=== PATIENT | male | born 1965 | race Caucasian/White ===

== ENCOUNTER 2018-11-07 17:23 | Inpatient (IN) | payer MEDICARE ==
[2018-11-07 18:39] LABS: Basophils % (A) 0 %; Eosinophils # (A) 0.3 k/uL (0-0.7); Eosinophils % (A) 3 %; HCT 44.7 % (39.0-53.0); HGB 15.3 gm/dL (13.0-17.5); Lymphocytes # (A) 1.3 k/uL (1.0-4.8); Lymphocytes % (A) 16 %; MCH 29.7 pg (25.0-35.0); MCHC 34.2 g/dL (31.0-37.0); MCV 86.8 fL (80.0-100.0); Mean Platelet Volume 6.9; Monocytes # (A) 0.6 k/uL (0-1.0); Monocytes % (A) 7 %; Neutrophils # (A) 5.9 k/uL (1.3-7.7); Neutrophils % (A) 72 %; Platelet Count 266 k/uL (150-450); RBC 5.15 m/uL (4.30-5.90); RDW 13.7 % (11.5-15.5); WBC 8.2 k/uL (3.8-10.6)
[2018-11-07 18:58] LABS: Acetaminophen <10.0 ug/mL; African American GFR (CKD) 85 (>60 ml/min/1.73 sqM); Anion Gap 10 mmol/L; Blood Urea Nitrogen 21 mg/dL (9-20); Calcium 9.2 mg/dL (8.4-10.2); Carbon Dioxide 21 mmol/L (22-30); Chloride 109 mmol/L (98-107); Glucose 116 mg/dL (74-99); Potassium 3.4 mmol/L (3.5-5.1); Salicylate <1.0 mg/dL; Sodium 140 mmol/L (137-145)
[2018-11-07] MEDS ORDERED: MAGNESIUM HYDROXIDE 2,400 MG/10 ML CUP PO PRN (20:18)
[2018-11-07] MEDS ORDERED: MAG HYDROX/AL HYDROX/SIMETH 30 ML CUP PO PRN (20:18)
[2018-11-07] MEDS ORDERED: ACETAMINOPHEN TAB 325 MG TAB PO PRN (20:18)
--- NOTE | 2018-11-07 21:07 | ED ---
Psych HPI - General Chief Complaint: Psychiatric Symptoms Stated Complaint: EPS eval Time Seen by Provider: 11/07/18 18:03 Source: patient, EMS Mode of arrival: EMS - History of Present Illness Initial Comments: Patient presents with suicidal ideation. He attempted to harm himself today. He has no chest or belly or back pain. He has no nausea or vomiting. - Related Data Home Medications Medication Instructions Recorded Confirmed No Known Home Medications 11/07/18 11/07/18 Allergies Allergy/AdvReac Type Severity Reaction Status Date / Time Sulfa (Sulfonamide Allergy Unknown Anaphylaxis Verified 11/07/18 18:34 Antibiotics) Review of Systems ROS Statement: Those systems with pertinent positive or pertinent negative responses have been documented in the HPI. ROS Other: All systems not noted in ROS Statement are negative. Past Medical History Past Medical History: Atrial Fibrillation, Cancer, Diabetes Mellitus, GERD/Reflux, Hyperlipidemia, Hypertension, Musculoskeletal Disorder, Sleep Apnea/CPAP/BIPAP Additional Past Medical History / Comment(s): PROSTATE CANCER, DIABETES -DIET CONTROLLED, CHRONIC BACK PAIN WITH NERVE DAMAGE LEFT FOOT, STATES HX OF 1 EPISODE OF A-FIB, STATES HIGH BLOODPRESSURE-NO MEDS, CONSTIPATION. History of Any Multi-Drug Resistant Organisms: None Reported Past Surgical History: Appendectomy, Back Surgery, Cholecystectomy, Tonsillectomy Additional Past Surgical History / Comment(s): BACK SURGERY x2, prostate biopsy . 06-16-14 PROSTATECTOMY Past Anesthesia/Blood Transfusion Reactions: No Reported Reaction, Previous Problems w/ Anesthesia Additional Past Anesthesia/Blood Transfusion Reaction / Comment(s): STATES DIFFICULT INTUBATION. Past Psychological History: ADD/ADHD, Anxiety, Depression Smoking Status: Former smoker Past Alcohol Use History: None Reported Past Drug Use History: Marijuana - Past Family History Mother Family Medical History: No Reported History Father Family Medical History: Myocardial Infarction ([place]) Brother(s) Family Medical History: No Reported History Sister(s) Family Medical History: No Reported History Daughter(s) Family Medical History: No Reported History General Exam Limitations: no limitations General appearance: alert, in no apparent distress Head exam: Present: atraumatic, normocephalic, normal inspection Eye exam: Present: normal appearance, PERRL, EOMI. Absent: scleral icterus, conjunctival injection, periorbital swelling ENT exam: Present: normal exam, mucous membranes moist Neck exam: Present: normal inspection. Absent: tenderness, meningismus, lymphadenopathy Respiratory exam: Present: normal lung sounds bilaterally. Absent: respiratory distress, wheezes, rales, rhonchi, stridor Cardiovascular Exam: Present: regular rate, normal rhythm, normal heart sounds. Absent: systolic murmur, diastolic murmur, rubs, gallop, clicks GI/Abdominal exam: Present: soft, normal bowel sounds. Absent: distended, tenderness, guarding, rebound, rigid Extremities exam: Present: normal inspection, full ROM, normal capillary refill. Absent: tenderness, pedal edema, joint swelling, calf tenderness Back exam: Present: normal inspection Neurological exam: Present: alert, oriented X3, CN II-XII intact Psychiatric exam: Present: depressed, flat affect, suicidal ideation Skin exam: Present: warm, dry, intact, normal color. Absent: rash Course Vital Signs 11/07/18 17:38 Temperature 98.4 F Pulse Rate 83 Respiratory 18 Rate Blood Pressure 158/105 O2 Sat by Pulse 96 Oximetry Medical Decision Making - Medical Decision Making Patient presents with suicidal ideation. He will be admitted to the hospital. - Lab Data Result diagrams: 11/07/18 18:28 11/07/18 18:28 Lab Results 11/07/18 11/07/18 Range/Units 18:28 18:28 WBC 8.2 (3.8-10.6) k/uL RBC 5.15 (4.30-5.90) m/uL Hgb 15.3 (13.0-17.5) gm/dL Hct 44.7 (39.0-53.0) % MCV 86.8 (80.0-100.0) fL MCH 29.7 (25.0-35.0) pg MCHC 34.2 (31.0-37.0) g/dL RDW 13.7 (11.5-15.5) % Plt Count 266 (150-450) k/uL Neutrophils % 72 % Lymphocytes % 16 % Monocytes % 7 % Eosinophils % 3 % Basophils % 0 % Neutrophils # 5.9 (1.3-7.7) k/uL Lymphocytes # 1.3 (1.0-4.8) k/uL Monocytes # 0.6 (0-1.0) k/uL Eosinophils # 0.3 (0-0.7) k/uL Basophils # 0.0 (0-0.2) k/uL Sodium 140 (137-145) mmol/L Potassium 3.4 L (3.5-5.1) mmol/L Chloride 109 H (98-107) mmol/L Carbon Dioxide 21 L (22-30) mmol/L Anion Gap 10 mmol/L BUN 21 H (9-20) mg/dL Creatinine 1.14 (0.66-1.25) mg/dL Est GFR (CKD-EPI)AfAm 85 (>60 ml/min/1.73 sqM) Est GFR (CKD-EPI)NonAf 73 (>60 ml/min/1.73 sqM) Glucose 116 H (74-99) mg/dL Calcium 9.2 (8.4-10.2) mg/dL Salicylates <1.0 mg/dL Acetaminophen <10.0 ug/mL Disposition Clinical Impression: Attempted suicide Disposition: TRANSFER TO PSYCH HOSP/UNIT Condition: Fair
[2018-11-08 07:45] LABS: Glucose,Whole Blood 90 mg/dL (75-99)
[2018-11-08 09:36] LABS: Basophils # (A) 0.1 k/uL (0-0.2); Basophils % (A) 1 %; Eosinophils # (A) 0.4 k/uL (0-0.7); Eosinophils % (A) 6 %; HCT 43.4 % (39.0-53.0); HGB 14.4 gm/dL (13.0-17.5); Lymphocytes # (A) 1.5 k/uL (1.0-4.8); Lymphocytes % (A) 25 %; MCH 29.3 pg (25.0-35.0); MCHC 33.3 g/dL (31.0-37.0); MCV 87.9 fL (80.0-100.0); Mean Platelet Volume 7.1; Monocytes # (A) 0.4 k/uL (0-1.0); Monocytes % (A) 7 %; Neutrophils # (A) 3.7 k/uL (1.3-7.7); Neutrophils % (A) 59 %; Platelet Count 274 k/uL (150-450); RBC 4.94 m/uL (4.30-5.90); RDW 15.3 % (11.5-15.5); WBC 6.2 k/uL (3.8-10.6)
[2018-11-08 09:49] LABS: Albumin 4.2 g/dL (3.5-5.0); Calcium 8.7 mg/dL (8.4-10.2); Potassium 3.8 mmol/L (3.5-5.1); Total Bilirubin 0.7 mg/dL (0.2-1.3); Total Protein 7.4 g/dL (6.3-8.2)
--- NOTE | 2018-11-08 12:12 | P.HP ---
Psychiatric H&P - . H&P Date: 11/08/18 History & Physical: Allergies Allergy/AdvReac Type Severity Reaction Status Date / Time Sulfa (Sulfonamide Allergy Unknown Anaphylaxis Verified 11/08/18 01:51 Antibiotics) Vital Signs Temp 97.9 F 11/08/18 06:46 Pulse 64 11/08/18 06:46 Resp 18 11/08/18 06:46 BP 140/85 11/08/18 06:46 Pulse Ox 99 11/07/18 20:39 Intake & Output 11/07/18 11/08/18 11/08/18 18:59 06:59 18:59 Weight 90.718 kg Laboratory Last Values WBC 6.2 k/uL (3.8-10.6) 11/08/18 08:12 RBC 4.94 m/uL (4.30-5.90) 11/08/18 08:12 Hgb 14.4 gm/dL (13.0-17.5) 11/08/18 08:12 Hct 43.4 % (39.0-53.0) 11/08/18 08:12 MCV 87.9 fL (80.0-100.0) 11/08/18 08:12 MCH 29.3 pg (25.0-35.0) 11/08/18 08:12 MCHC 33.3 g/dL (31.0-37.0) 11/08/18 08:12 RDW 15.3 % (11.5-15.5) 11/08/18 08:12 Plt Count 274 k/uL (150-450) 11/08/18 08:12 Neutrophils % 59 % 11/08/18 08:12 Lymphocytes % 25 % 11/08/18 08:12 Monocytes % 7 % 11/08/18 08:12 Eosinophils % 6 % 11/08/18 08:12 Basophils % 1 % 11/08/18 08:12 Neutrophils # 3.7 k/uL (1.3-7.7) 11/08/18 08:12 Lymphocytes # 1.5 k/uL (1.0-4.8) 11/08/18 08:12 Monocytes # 0.4 k/uL (0-1.0) 11/08/18 08:12 Eosinophils # 0.4 k/uL (0-0.7) 11/08/18 08:12 Basophils # 0.1 k/uL (0-0.2) 11/08/18 08:12 Sodium 141 mmol/L (137-145) 11/08/18 08:12 Potassium 3.8 mmol/L (3.5-5.1) 11/08/18 08:12 Chloride 105 mmol/L (98-107) 11/08/18 08:12 Carbon Dioxide 24 mmol/L (22-30) 11/08/18 08:12 Anion Gap 12 mmol/L 11/08/18 08:12 BUN 22 mg/dL (9-20) H 11/08/18 08:12 Creatinine 1.34 mg/dL (0.66-1.25) H 11/08/18 08:12 Est GFR (CKD-EPI)AfAm 70 (>60 ml/min/1.73 sqM) 11/08/18 08:12 Est GFR (CKD-EPI)NonAf 60 (>60 ml/min/1.73 sqM) 11/08/18 08:12 Glucose 90 mg/dL (74-99) 11/08/18 08:12 POC Glucose (mg/dL) 90 mg/dL (75-99) 11/08/18 07:42 POC Glu Perl Developer ID Brenda Nieves 11/08/18 07:42 Calcium 8.7 mg/dL (8.4-10.2) 11/08/18 08:12 Total Bilirubin 0.7 mg/dL (0.2-1.3) 11/08/18 08:12 AST 28 U/L (17-59) 11/08/18 08:12 ALT 31 U/L (21-72) 11/08/18 08:12 Alkaline Phosphatase 60 U/L (38-126) 11/08/18 08:12 Total Protein 7.4 g/dL (6.3-8.2) 11/08/18 08:12 Albumin 4.2 g/dL (3.5-5.0) 11/08/18 08:12 Triglycerides 94 mg/dL (<150) 11/08/18 08:12 Cholesterol 167 mg/dL (<200) 11/08/18 08:12 LDL Cholesterol, Calc 102 mg/dL (0-99) H 11/08/18 08:12 HDL Cholesterol 46 mg/dL (40-60) 11/08/18 08:12 TSH 2.290 mIU/L (0.465-4.680) 11/08/18 08:12 Salicylates <1.0 mg/dL 11/07/18 18:28 Acetaminophen <10.0 ug/mL 11/07/18 18:28 11/08/18 11:57 IDENTIFYING DATA: Patient is a 52-year-old male who is currently , has 6 kids, currently supported on SSD. HPI: Patient presented to the hospital for an alleged suicide attempt. As per petition filled out by , she claims that she received a text message from the patient stating that he was going to end his life at home. states that she had to kick in the door and found patient hanging by a dog leash and cut him down and called the police to bring him into the hospital. Patient was seen this morning and was agreeable to speak to adjusto writer operator. Patient appeared to have poor hygiene and poor grooming and was itching his face and scratching his dockery, had poor attention during the interview. Patient had a depressed affect and a soft tone. He states that he has been feeling depressed for years now and states that it has gotten worse to the point where he wanted to end his life. Patient claims that he has been feeling overwhelmed at home and endorsed stressors of him having cancer in his "lymph nodes" and pointed to his armpits and states that he does not know where the cancer has come from however he was diagnosed 1 year ago. He also states that he has a history of prostate cancer which she had his prostate removed. Patient also claims that he has been stressed about his having a resurgence in her breast cancer recently. Patient claims that he feels hopeless and feels worthless. He also claims that he does have some anxiety and smokes marijuana to help with that. He states that he feels somnolent during the day and has poor sleep at night, sometimes oversleeping. He states that his hygiene and appetite are poor. He states that he was being followed up by psychiatrist who he does not recall the name in [place] and claims that he has been on antidepressant medications which is helped him in the past. He claims to have been off his medications for years now. Patient denies any current suicidal or homicidal ideations intent or plan. At this time patient denies any auditory or visual hallucinations. Patient denies any flight of ideas racing thoughts and increased in goal directed behavior. Patient admits to using marijuana approximately 2 joints a day to help with his anxiety. He denies alcohol use or any other illicit drugs. He claims that he stopped smoking cigarettes in the late s. PAST PSYCHIATRIC HISTORY: States that he was last admitted to a [facility] in 2016 being treated for depression. He claims that he has had 3 overdose attempts in the past when he is been off his medications. He states that he was following up with a outpatient psychiatrist in [place] on however failed to follow-up for years. He states that he has been diagnosed with anxiety and depression. PMH: A. fib, cancer, diabetes mellitus, GERD, HLP, hypertension, RAFAL, chronic back pain. ALLERGIES: Sulfa CHEMICAL DEPENDENCY HISTORY: As per HPI FAMILY PSYCHIATRIC/SUBSTANCE USE HISTORY: Claims that his uncle committed suicide. SOCIAL HISTORY: States that he lives in a house in [place] with his has 6 kids of his own. He states that he finished high school and did some college. 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 Currently he is supported on [facility] MENTAL STATUS EXAM: General Appearance: Patient appears to be older than stated age, is somewhat lethargic and has poor hygiene and grooming. Behavior: Patient is calmly seated without any agitated behavior. Speech: Patient's speech is fluent and nonpressured. Soft tone Mood/Affect: Patient reports their mood is "depressed", affect is congruent and constricted Suicidality/Homicidality: Patient denies having any suicidal or homicidal i deation intent or plan. Claims he does have passive SI at times. Perceptions: Patient denies any auditory or visual hallucinations. Though content/process: There is no evidence of any delusional thought content and thought process is linear and goal-directed. Patient was preoccupied with stressors and feeling overwhelmed at home. Memory and concentration: AOX3, grossly intact for the purposes of this session. Can spell "WORLD" backwards Judgment and insight: Poor STRENGTHS/WEAKNESSES: Has good social support, an income. Has poor coping skills and a history of chronic illness. INTELLECT: Average IMPRESSIONS: Major depressive disorder, moderate-severe Claims to have a history of ADHD. Cannabis use disorder PLAN: -Patient is admitted under voluntary status to MHU for stabilization of psychiatric symptoms and safety. Patient signed adult voluntary form and medication consent and is placed in patient's chart. -Will start patient on Effexor 37.5 mg daily with plan to titrate up for mood and anxiety. Will also start melatonin 3 mg daily at bedtime for sleep. -Hydroxyzine 25 mg every 8 hours when necessary for anxiety. -Patient was counselled on substance abuse. Patient had superficial insight and did not want to cut back on use at this time. -Patient was informed of the risks, benefits and side effects of the medication and patient verbally consented to taking the medications. -NRT not required as patient does not smoke cigarettes. -SW on board for discharge planning. Patient claims that he would like to follow-up and be connected with [facility] as his has been going there for her follow-up and she would like to join her. 11/08/18 12:05 11/08/18 12:11
[2018-11-08 12:26] LABS: Glucose,Whole Blood 94 mg/dL (75-99)
[2018-11-08] MEDS: VENLAFAXINE HCL 37.5 MG TAB PO SCH (13:13)
[2018-11-08] MEDS ORDERED: BENZOCAINE/MENTHOL LOZENG 1 EACH LOZENGE MUCOUS MEM PRN (15:44)
--- NOTE | 2018-11-08 15:45 | P.HPMEDMHU ---
History of Present Illness H&P Date: 11/08/18 Chief Complaint: depression Patient is a 52-year-old male with a past medical history of hypertension, diabetes, GERD, dyslipidemia, prostate cancer, and "lymph node cancer" is currently in the mental health unit after attempting suicide by hanging. He reports that he had many past medical problems but he does not see a physician and has not since he had prostate cancer in 2015. He reports that he has high blood pressure and has been on medications in the past but is not taking anything currently, he has a history of diabetes that has been diet controlled, High cholesterol that has been diet controlled, obstructive sleep apnea with no history of CPAP use, he had one episode of lone A. fib. He reports that in 2015 limits on his prostate cancer they also found "lymph node cancer". He reports that it is unrelated to the prostate cancer. He saw an oncologist one time and was told he should follow-up after treatment for prostate cancer. He has not seen anyone since that time. He reports that he is active insurance with Medicare. He also is not following with her family physician. He reports intermittent shortness of breath with exertion associated with cough and wheezing. He denies any chest pain or palpitations. Denies any nausea, vomiting, diarrhea, constipation, or dysuria. He thinks his cancer and his lymph nodes is getting worse as he is having worsening fatigue and decreased appetite. He does complain of some neck and throat pain after the hanging episode. Review of Systems Pertinent positives and negatives as discussed in HPI, a complete review of systems was performed and all other systems are negative. Past Medical History Past Medical History: Atrial Fibrillation, Cancer, Diabetes Mellitus, GERD/Reflux, Hyperlipidemia, Hypertension, Musculoskeletal Disorder, Sleep Apnea/CPAP/BIPAP Additional Past Medical History / Comment(s): PROSTATE CANCER, DIABETES -DIET CONTROLLED, CHRONIC BACK PAIN WITH NERVE DAMAGE LEFT FOOT, STATES HX OF 1 EPISODE OF A-FIB, STATES HIGH BLOODPRESSURE-NO MEDS, CONSTIPATION. 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 06-16-14 PROSTATECTOMY Past Anesthesia/Blood Transfusion Reactions: No Reported Reaction, Previous Problems w/ Anesthesia Additional Past Anesthesia/Blood Transfusion Reaction / Comment(s): STATES DIFFICULT INTUBATION. Past Psychological History: ADD/ADHD, Anxiety, Depression Additional Psychological History / Comment(s): PT STATED MAINTAINED AMY GOOD ON HIS MEDS NO SUIDCIDAL THOUGHTS BUT HAS TROUBLE STAYING ASLEEP, GETS ANTSY AT TIMES. PTS STATED HE NEEDS TO BE REMINDED TO EAT. Smoking Status: Former smoker Past Alcohol Use History: None Reported Additional Past Alcohol Use History / Comment(s): patient smoked 2-1/2 packs of cigarettes per day for 5-6 years and quit in 1989. Past Drug Use History: Marijuana Additional Drug Use History / Comment(s): DAILY USE OF MARIJUANA FOR BACK PAIN. - Past Family History Mother Family Medical History: No Reported History Father Family Medical History: Myocardial Infarction ([place]) Brother(s) Family Medical History: No Reported History Sister(s) Family Medical History: No Reported History Daughter(s) Family Medical History: No Reported History Medications and Allergies Home Medications Medication Instructions Recorded Confirmed Type No Known Home Medications 11/07/18 11/07/18 History Allergies Allergy/AdvReac Type Severity Reaction Status Date / Time Sulfa (Sulfonamide Allergy Unknown Anaphylaxis Verified 11/08/18 01:51 Antibiotics) Physical Exam Osteopathic Statement: *. No significant issues noted on an osteopathic structural exam other than those noted in the History and Physical/Consult. Vitals: Vital Signs Temp Pulse Pulse Resp BP BP Pulse Ox 11/08/18 06:46 97.9 F 64 18 140/85 11/07/18 20:39 97.9 F 89 18 139/94 99 11/07/18 17:38 98.4 F 83 18 158/105 96 General: non toxic, no distress, appears at stated age, normal weight, appears disheveled, malodorous Derm: Slight area of excoriation left anterior neck, Multiple tattoos bilateral upper extremities, no unusual rashes/lesions no unusual ecchymoses, warm, dry Head: atraumatic, normocephalic, symmetric Eyes: EOMI, no lid lag, anicteric sclera, pupils equal round reactive to light ENT: Nose and ears atraumatic, no thrush, no pharyngeal erythema Neck: No thyromegaly, no cervical lymphadenopathy, trachea midline, supple Mouth: no lip lesion, mucus membranes moist Cardiovascular: S1S2 reg, no murmur, positive posterior tibial pulse bilateral, no edema, capillary refill less than 2 seconds Lungs: CTA bilateral, no rhonchi, no rales , no accessory muscle use Abdominal: soft, nontender to palpation, no guarding, no appreciable organomegaly, normal bowel sounds Ext: no gross muscle atrophy, muscle strength 5 out of 5 in all 4 extremities grossly, no contractures, Neuro: CN II-XI grossly intact, light touch intact all 4 extremities, finger to nose within normal limits, Psych: Alert, oriented, affect Lymph node: No cervical, axillary, or inguinal lymphadenopathy Cranial Nerve Examination - Cranial Nerves Cranial Nerve II- Optic: Intact Cranial Nerve III- Oculomotor: Intact Cranial Nerve IV- Trochlear: Intact Cranial Nerve V- Trigeminal: Intact Cranial Nerve - Abducens: Intact Cranial Nerve VII- Facial: Intact Cranial Nerve VIII- Auditory: Intact Cranial Nerve IX- Glossopharyngeal: Intact Cranial Nerve X- Vagus: Intact Cranial Nerve XI- Accessory: Intact Cranial Nerve XII- Hypoglossal: Intact Results CBC & Chem 7: 11/08/18 08:12 11/08/18 08:12 Labs: Abnormal Lab Results - Last 24 Hours (Table) 11/07/18 11/08/18 Range/Units 18:28 08:12 Potassium 3.4 L (3.5-5.1) mmol/L Chloride 109 H (98-107) mmol/L Carbon Dioxide 21 L (22-30) mmol/L BUN 21 H 22 H (9-20) mg/dL Creatinine 1.34 H (0.66-1.25) mg/dL Glucose 116 H (74-99) mg/dL LDL Cholesterol, Calc 102 H (0-99) mg/dL Thrombosis Risk Factor Assmnt - DVT/VTE Prophylaxis DVT/VTE Prophylaxis: Low risk, early ambulation encouraged Assessment and Plan Assessment: High blood pressure, slightly elevated -Continue to trend -Start Norvasc -Needs outpatient follow-up- Dr. Awan Hx of DM, diet controlled - check sugar prior to breakfast - await A1C HLD - LDL slightly elevated at 102 - dietary modification - if stays elevated on repeat in 6 months and A1C is elevated then statin for goal LDL <70 Hx of Lymph node cancer per patient - out patient heme/onc evaluation - CBC with diff normal, no palpable lymphadenopathy Exertional dyspnea - monitor symptoms - if stable and not severe then outpatient eval - if worsening then will need echo Thank you for allowing us to participate in the care of this patient. We will follow peripherally. Do not hesitate to contact us with questions. Someone can be reached from the [facility][Note 3] hospitalist group at all hours of the day at [phone].
[2018-11-08 19:26] LABS: Hemoglobin A1C 5.2 % (4.0-6.0)
[2018-11-08] MEDS: hydrOXYzine PAMOATE 25 MG CAP PO PRN (19:55)
[2018-11-08] MEDS ORDERED: amLODIPine 10 MG TAB PO STA (20:11)
[2018-11-08] MEDS: MELATONIN 3 MG TABLET PO SCH (20:51)
[2018-11-09] MEDS: VENLAFAXINE HCL 37.5 MG TAB PO SCH (06:41)
[2018-11-09 07:34] LABS: Glucose,Whole Blood 105 mg/dL (75-99)
[2018-11-09] MEDS: METOPROLOL TARTRATE 25 MG TAB PO SCH (08:25)
[2018-11-09] MEDS ORDERED: amLODIPine 5 MG TAB PO SCH (09:00)
--- NOTE | 2018-11-09 12:28 | P.PN ---
Progress Note - Text Progress Note Date: 11/09/18 Interval History: Patient was seen in his room this morning and was agreeable to speak to check writer. Patient claims that she slept well last night and continues to feel the same with regards to his mood and anxiety. He states that his blood pressure was noted to be elevated than it regularly is an patient was expressing concern about it. It was explained that this could be a side effect of his medication and patient was offered alternatives and antidepressants. Patient claims that he would be most comfortable with Prozac at this time. He states that he has not been going to groups and has been resting quite a bit claiming that she did not get sleep before coming into the hospital. He states his appetite is fair. At this time patient denies any suicidal or homical ideations, intent or plan. Patient denies any auditory, visual hallucinations and denies any paranoia or delusions. Patient has been compliant with meds. Mental Status Exam: General Appearance: Patient appears to be older than stated age, is somewhat lethargic and has poor hygiene and grooming. Behavior: Patient is calmly seated without any agitated behavior. Speech: Patient's speech is fluent and nonpressured. Soft tone Mood/Affect: Patient reports their mood is "a little better", affect is congruent and constricted Suicidality/Homicidality: Patient denies having any suicidal or homicidal ideation intent or plan. Claims he does have passive SI at times. Perceptions: Patient denies any auditory or visual hallucinations. Though content/process: There is no evidence of any delusional thought content and thought process is linear and goal-directed. Memory and concentration: AOX3, grossly intact for the purposes of this session. Judgment and insight: Poor, improving mildly IMPRESSIONS: Major depressive disorder, moderate-severe Claims to have a history of ADHD. Cannabis use disorder PLAN: -Patient continues to meet criteria for inpatient psychiatric hospitalization under voluntary status to MHU for stabilization of psychiatric symptoms and safety. -Medications : Will discontinue Effexor as it may have been causing patient's blood pressure to be elevated. We will start Prozac 20 mg daily tomorrow for mood and anxiety. Will continue with melatonin 3 mg daily at bedtime for sleep. -Hydroxyzine 25 mg every 8 hours when necessary for anxiety. -Patient was informed of the risks, benefits and side effects of the medication and patient verbally consented to taking the medications. -NRT not required as patient does not smoke cigarettes. -SW on board for discharge planning. Patient claims that he would like to follow-up and be connected with [facility] upon discharge.
[2018-11-09] MEDS: hydrOXYzine PAMOATE 25 MG CAP PO PRN (15:26)
[2018-11-09] MEDS: MELATONIN 3 MG TABLET PO SCH (22:22)
[2018-11-10 07:50] LABS: Glucose,Whole Blood 99 mg/dL (75-99)
[2018-11-10] MEDS: METOPROLOL TARTRATE 25 MG TAB PO SCH (08:56)
[2018-11-10] MEDS: amLODIPine 10 MG TAB PO SCH (08:56)
[2018-11-10] MEDS ORDERED: FLUoxetine HCL 20 MG CAP PO SCH (09:00)
--- NOTE | 2018-11-10 11:20 | P.PN ---
Progress Note - Text Interval history: The patient's found in his room he follows me to an interview room. He was admitted over the weekend by Dr. Mccoy. He reportedly attempted suicide via hanging. The patient is known to our mental health unit service as he has had several admissions in the past. His diagnoses have varied from depression unspecified to bipolar disorder. He indicates that he is been under several stressors which were overwhelming. He initially was started on Effexor XR while here than there was some concern it was contributing to his hypertension. The Effexor was discontinued and he was placed on Prozac. The patient states that he now recalls being on Prozac in the past it was not beneficial and he no longer wishes to take that medication. After reviewing his records and speaking with him longer he states that he did well with Lamictal as a mood stabilizer. He requests that I speak with his as she may have a better recollection of his medications. He does have a history of hypertension and he states he has been off of his antihypertensives. Mental status exam: The patient is alert he has long hair and a long dockery he has numerous tattoos on his upper extremities he is dressed in his own clothing. Eye contact is appropriate. Speech is fluent spontaneous nonpressured. Affect is constricted. He states that he feels safe in the hospital in terms of suicidal thoughts he is reporting no homicidal ideation. He reports no auditory or visual hallucinations or any specific delusions. There is no observed evidence of psychosis. He demonstrates no tangential thinking loose associations or flight of ideas. He does not appear currently to be hypomanic or manic. He demonstrates no verbal or physical aggressiveness he demonstrates no involuntary repetitive movements. Impressions/plan: Symptoms of depression and rule out bipolar depression versus major depressive disorder, we will discontinue the Prozac as he recalls it was ineffective for him in the past. We will go ahead and initiate Lamictal 25 mg twice daily as a mood stabilizer. I have placed a call with his to gather collateral information regarding his response to Lamictal or antidepressant medication. He is encouraged to participate in the milieu we will monitor him for safety. Vital signs reviewed.
[2018-11-10] MEDS: MELATONIN 3 MG TABLET PO SCH (20:39)
[2018-11-10] MEDS: lamoTRIgine 25 MG TAB PO SCH (20:39)
[2018-11-11] MEDS: amLODIPine 10 MG TAB PO SCH (03:29)
[2018-11-11 07:44] LABS: Glucose,Whole Blood 120 mg/dL (75-99)
[2018-11-11] MEDS: METOPROLOL TARTRATE 25 MG TAB PO SCH (09:37)
[2018-11-11] MEDS: lamoTRIgine 25 MG TAB PO SCH ×2 (09:38→20:37)
--- NOTE | 2018-11-11 09:49 | P.PN ---
Progress Note - Text Interval history: The patient is found in the hallway he follows me to an interview room. He indicates his mood is getting better. He reports he slept well last night staff recorded he slept 5-6 hours. We reviewed his psychotropic medication he is agreeable to continuing the Lamictal. We will defer adding anything else at this time. He reports his appetite is stable. He reports he is attending groups. He states that he is working on developing his social support. Mental status exam: The patient is dressed in his own clothing hygiene grooming fair, he has appropriate eye contact he is wearing eyeglasses. Speech is fluent spontaneous nonpressured. Affect is appropriately expressive. He is reporting no acute suicidal or homicidal thoughts here in the hospital. He continues to remind me that he would like to be discharged by the end of the week. He is reporting no auditory or visual hallucinations or any specific delusions. There is no overt evidence of psychosis. He demonstrates no verbal or physical aggressiveness. He demonstrates no involuntary repetitive movements. Insight and judgment improving. He remains oriented to person place and date. Impression/plan: Depression on specified rule out I polar depression, continue Lamictal as written. He is encouraged to continue participating in groups. We will continue to monitor him for safety and encourage coping skill development. Vital signs reviewed blood pressure fluctuating and this has been addressed by internal medicine. He requires continued psychiatric hospitalization for evaluation and treatment. He may be appropriate for discharge towards the end of the week.
[2018-11-11] MEDS: hydrOXYzine PAMOATE 25 MG CAP PO PRN ×2 (12:55→20:38)
[2018-11-11] MEDS: MELATONIN 3 MG TABLET PO SCH (20:37)
[2018-11-12 07:44] LABS: Glucose,Whole Blood 97 mg/dL (75-99)
[2018-11-12] MEDS: lamoTRIgine 25 MG TAB PO SCH ×2 (09:01→21:02)
[2018-11-12] MEDS: METOPROLOL TARTRATE 25 MG TAB PO SCH (09:01)
[2018-11-12] MEDS: amLODIPine 10 MG TAB PO SCH (09:02)
[2018-11-12] MEDS: hydrOXYzine PAMOATE 25 MG CAP PO PRN ×2 (09:02→16:25)
--- NOTE | 2018-11-12 09:38 | P.PN ---
Progress Note - Text Progress Note Date: 11/12/18 Interval history: The patient is found in his room he follows me to an interview room. He indicates his mood is improving. He states that he attended groups yesterday and attended the goal setting group this morning so far. He has no questions or concerns regarding his medication. We spent some time discussing the factors causing this admission. He identifies several people that he would contact for support if he finds himself struggling again. He is hoping to attend [facility] for outpatient care upon discharge. He has been speaking with his via phone. Appetite is been stable he slept last night staff report he slept 6 hours. Mental status exam: The patient is alert he is dressed in his own clothing hygiene grooming fair. Eye contact is appropriate. Speech is fluent spontaneous nonpressured. He indicates his mood is improving. He is reporting no acute suicidal or homicidal ideation intent or plan. He is reporting no racing thoughts. He demonstrates no tangential thinking loose associations or flight of ideas. He demonstrates no verbal or physical aggressiveness. Insight and judgment improving. He remains oriented to person place and date. Affect is appropriately expressive. He reports no auditory or visual hallucinations or specific delusions and there is no observed evidence of psychosis. Impression/plan: Symptoms of depression improving, continue Lamictal as written. We will continue to monitor him for safety. Social work will be asked to arrange a support meeting. We will consider discharge in the next 1-2 days. Vital signs reviewed. Blood pressure is slowly normalizing. He is encouraged to continue participating in groups.
[2018-11-12] MEDS: MELATONIN 3 MG TABLET PO SCH (21:02)
[2018-11-13] MEDS: hydrOXYzine PAMOATE 25 MG CAP PO PRN ×2 (01:10→09:45)
[2018-11-13 01:21] VITALS: TEMP 97.5
[2018-11-13 07:47] LABS: Glucose,Whole Blood 92 mg/dL (75-99)
[2018-11-13] MEDS: METOPROLOL TARTRATE 25 MG TAB PO SCH (09:45)
[2018-11-13] MEDS: lamoTRIgine 25 MG TAB PO SCH (09:45)
[2018-11-13] MEDS: amLODIPine 10 MG TAB PO SCH (09:45)
[2018-11-13 09:47] VITALS: BP 145/90; PULSE 88; RESP 18
--- NOTE | 2018-11-13 11:57 | P.DS ---
Providers Date of admission: 11/07/18 20:12 Expected date of discharge: 11/13/18 Attending physician: Ronaldo Sherwood Consults: 11/07/18 20:18 Consult Physician Routine Consulting Provider: Anival Davis Consult Reason/Comments: medical management Do you want consulting provider notified?: Yes Primary care physician: Stated None - Discharge Diagnosis(es) (1) Depression Current Visit: No Status: Acute Priority: High (2) Cannabis use disorder, mild, abuse Current Visit: Yes Status: Acute Priority: Medium Hospital Course: Brief summary of admission note: This patient is a 52-year-old male who was admitted to the mental health unit for an alleged suicide attempt. His completed a petition stating that she received a text message from the patient stating he was going to end his life. She discovered that he had a dog leash around his neck she called the police. He described having hopeless thoughts and feeling worthless. He described having poor appetite and difficulty maintaining his hygiene. For full details please refer to the psychiatric evaluation by Dr. Mccoy dated 11/08/2018. Summary of hospital course: The patient's was admitted to the mental health unit voluntarily. He was admitted to the hospital by Dr. Mccoy and I subsequently assumed his care the following Saturday. In reviewing his symptoms there is some suspicion that he may have a bipolar depression. He is known to me from prior admission. He states he had been successful with Lamictal and the past. He had been started on Effexor XR that was discontinued he was placed on Prozac and he stated that Prozac provided no benefit in the past. We discontinued the Prozac and reinitiated Lamictal. The patient did participate in group therapy. He reported a progressive improvement of symptoms while here. He was seen by internal medicine for routine history and physical exam. Social work met with him to complete a psychosocial assessment. The patient has been indicating that his mood is improved he no longer feels hopeless and he has verbalized strategies he would use to access support when he feels he is in crisis. He states that he is looking forward to establishing with [facility]. Mental status exam: The patient is alert he presents with adequate hygiene grooming eye contact is appropriate. He is pleasant cooperative and easily directable. He reports his mood is good he denies having any suicidal ideation intent or plan. He reports he does not feel hopeless. He is reporting no homicidal ideation intent or plan. He reports no auditory or visual hallucinations or any specific delusions and there is no observed evidence of psychosis. He demonstrates no tangential thinking loose associations or flight of ideas and he does not appear hypomanic or manic. His affect is appropriately expressive. He demonstrates no verbal or physical aggressiveness he demonstrates no involuntary repetitive movements. He is oriented to person place and date. He demonstrates future oriented thinking spontaneously. He indicates he wants to establish with [facility]. He has concerns for his property and states he will be reaching out to his friend for support and to help secure his property. Impressions 1. Depression unspecified rule out bipolar depression versus major depressive disorder, cannabis use disorder Plan: The patient will be discharged from the mental health unit today to return home. He will continue on Lamictal 25 mg twice daily. The Lamictal will need to be titrated further in the outpatient setting. He is advised to abstain from any use of marijuana alcohol or any illicit drugs as these substances can provoke mood symptoms and elevate his safety risk. Social work will arrange his outpatient mental health follow-up. He does not feel that he requires inpatient chemical dependency treatment. There is no imminent safety risk is appropriate for transition back to outpatient care. He is reminded to return to the hospital for any acute safety concerns. Social work will attempt to arrange a support meeting either in person or via phone if possible. Patient Condition at Discharge: Stable Plan - Discharge Summary New Discharge Prescriptions: New lamoTRIgine [LaMICtal] 25 mg PO BID #60 tab Metoprolol Tartrate [Lopressor] 25 mg PO DAILY #30 tab Melatonin 3 mg PO HS tablet amLODIPine [Norvasc] 10 mg PO DAILY #30 tab hydrOXYzine PAMOATE [Vistaril] 25 mg PO Q8HR PRN #30 cap PRN Reason: Anxiety Discharge Medication List Melatonin 3 mg PO HS tablet 11/13/18 [Rx] Metoprolol Tartrate [Lopressor] 25 mg PO DAILY #30 tab 11/13/18 [Rx] amLODIPine [Norvasc] 10 mg PO DAILY #30 tab 11/13/18 [Rx] hydrOXYzine PAMOATE [Vistaril] 25 mg PO Q8HR PRN #30 cap 11/13/18 [Rx] lamoTRIgine [LaMICtal] 25 mg PO BID #60 tab 11/13/18 [Rx] Follow up Appointment(s)/Referral(s): Daniel Villagomez MD [STAFF PHYSICIAN] - 2 Weeks (Read Dr Lara's H and P, for when to f/u after d/c) Emperatriz Badillo MD [STAFF PHYSICIAN] - 1 Week
== END 2018-11-13 13:31 | disposition home or self-care (01) | DRG 885 ==
LOC: EC 17:23 → 3MHU 20:12
PROVIDERS: ADMIT Psychiatry & Neurology Psychiatry; ATTEND Psychiatry & Neurology Psychiatry
DX: F32.2 Major depressive disorder, single episode, severe without psychotic features (principal); R45.851 Suicidal ideations; E11.9 Type 2 diabetes mellitus without complications; I48.91 Unspecified atrial fibrillation; F31.9 Bipolar disorder, unspecified; E78.5 Hyperlipidemia, unspecified; F12.10 Cannabis abuse, uncomplicated; F41.9 Anxiety disorder, unspecified; F90.9 Attention-deficit hyperactivity disorder, unspecified type; G47.33 Obstructive sleep apnea (adult) (pediatric); I10 Essential (primary) hypertension; K21.9 Gastro-esophageal reflux disease without esophagitis; G89.29 Other chronic pain; M54.9 Dorsalgia, unspecified; Z79.899 Other long term (current) drug therapy; Z87.891 Personal history of nicotine dependence; Z88.2 Allergy status to sulfonamides; Z85.46 Personal history of malignant neoplasm of prostate; Z90.49 Acquired absence of other specified parts of digestive tract; Z90.79 Acquired absence of other genital organ(s); Z82.49 Family history of ischemic heart disease and other diseases of the circulatory system
CPT/HCPCS: 36415; 80048; 80053; 80061; 80329; 82075; 83036; 83520; 84443; 85025; 99285

== ENCOUNTER 2018-12-24 14:23 | Inpatient (IN) | payer MEDICARE ==
--- NOTE | 2018-12-24 15:50 | ED ---
Psych HPI - General Chief Complaint: Psychiatric Symptoms Stated Complaint: Mental Health Time Seen by Provider: 12/24/18 14:29 Source: patient, police, RN notes reviewed Mode of arrival: ambulatory Limitations: no limitations - History of Present Illness Initial Comments: 52-year-old male presents emergency Department chief complaint of psychiatric issues. Patient states she is depressed, suicidal. Patient is she is very anxious. Patient reports picture of himself and a rope in a tree stating that he was hanging himself. Patient denies self-harm at this time. Patient does admit to marijuana use no alcohol abuse. Patient is petition by police. Patient was visiting ex- who has a PPO. Patient has no physical complaints. Patient states she is very anxious. Patient states when he gets anxious he stutters. - Related Data Previous Rx's Medication Instructions Recorded Metoprolol Tartrate [Lopressor] 25 mg PO DAILY #30 tab 11/13/18 amLODIPine [Norvasc] 10 mg PO DAILY #30 tab 11/13/18 hydrOXYzine PAMOATE [Vistaril] 25 mg PO Q8HR PRN #30 cap 11/13/18 lamoTRIgine [LaMICtal] 25 mg PO BID #60 tab 11/13/18 Allergies Allergy/AdvReac Type Severity Reaction Status Date / Time Sulfa (Sulfonamide Allergy Unknown Anaphylaxis Verified 12/24/18 14:46 Antibiotics) Review of Systems ROS Statement: Those systems with pertinent positive or pertinent negative responses have been documented in the HPI. ROS Other: All systems not noted in ROS Statement are negative. Past Medical History Past Medical History: Atrial Fibrillation, Cancer, Diabetes Mellitus, GERD/Reflux, Hyperlipidemia, Hypertension, Musculoskeletal Disorder, Sleep Apnea/CPAP/BIPAP Additional Past Medical History / Comment(s): PROSTATE CANCER, DIABETES -DIET CONTROLLED, CHRONIC BACK PAIN WITH NERVE DAMAGE LEFT FOOT, STATES HX OF 1 EPISODE OF A-FIB, STATES HIGH BLOODPRESSURE-NO MEDS, CONSTIPATION. 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 06-16-14 PROSTATECTOMY Past Anesthesia/Blood Transfusion Reactions: No Reported Reaction, Previous Problems w/ Anesthesia Additional Past Anesthesia/Blood Transfusion Reaction / Comment(s): STATES DIFFICULT INTUBATION. Past Psychological History: ADD/ADHD, Anxiety, Depression Smoking Status: Former smoker Past Alcohol Use History: None Reported Past Drug Use History: Marijuana - Past Family History Mother Family Medical History: No Reported History Father Family Medical History: Myocardial Infarction (MS) Brother(s) Family Medical History: No Reported History Sister(s) Family Medical History: No Reported History Daughter(s) Family Medical History: No Reported History General Exam Limitations: no limitations General appearance: alert, in no apparent distress, anxious Head exam: Present: atraumatic, normocephalic, normal inspection Eye exam: Present: normal appearance, PERRL, EOMI. Absent: scleral icterus, conjunctival injection, periorbital swelling ENT exam: Present: normal exam, mucous membranes moist Neck exam: Present: normal inspection, full ROM. Absent: tenderness, meningismus, lymphadenopathy Respiratory exam: Present: normal lung sounds bilaterally. Absent: respiratory distress, wheezes, rales, rhonchi, stridor Cardiovascular Exam: Present: regular rate, normal rhythm, normal heart sounds. Absent: systolic murmur, diastolic murmur, rubs, gallop, clicks GI/Abdominal exam: Present: soft, normal bowel sounds. Absent: distended, tenderness, guarding, rebound, rigid Neurological exam: Present: alert, oriented X3, CN II-XII intact Skin exam: Present: warm, dry, intact, normal color. Absent: rash Course Vital Signs 12/24/18 14:25 Temperature 98.3 F Pulse Rate 86 Respiratory 20 Rate Blood Pressure 140/82 O2 Sat by Pulse 97 Oximetry Medical Decision Making - Medical Decision Making Patient evaluated by EPS recommends inpatient treatment. Patient will be gving ativan as he is acutely anxious, and agitated Disposition Clinical Impression: Depression, Suicidal ideations Disposition: TRANSFER TO PSYCH HOSP/UNIT Condition: Stable Referrals: None,Stated [Primary Care Provider] - 1-2 days
[2018-12-24] MEDS ORDERED: LORazepam 2 MG/ML INJ IM STA (17:06)
[2018-12-24] MEDS ORDERED: LORazepam 1 MG TAB PO PRN (17:37)
[2018-12-24] MEDS ORDERED: MAGNESIUM HYDROXIDE 2,400 MG/10 ML CUP PO PRN (17:37)
[2018-12-24] MEDS ORDERED: ZIPRASIDONE 20 MG VIAL IM PRN (17:37)
[2018-12-24] MEDS ORDERED: ACETAMINOPHEN TAB 325 MG TAB PO PRN (17:37)
[2018-12-24] MEDS ORDERED: MAG HYDROX/AL HYDROX/SIMETH 30 ML CUP PO PRN (17:37)
[2018-12-24] MEDS ORDERED: hydrOXYzine PAMOATE 25 MG CAP PO PRN (17:44)
[2018-12-24] MEDS ORDERED: amLODIPine 10 MG TAB PO SCH (17:45)
[2018-12-24] MEDS ORDERED: LORazepam 2 MG/ML INJ IM PRN (17:45)
[2018-12-24] MEDS ORDERED: METOPROLOL TARTRATE 25 MG TAB PO SCH (17:45)
[2018-12-24 18:32] LABS: Glucose,Whole Blood 116 mg/dL (75-99)
[2018-12-24 18:57] VITALS: TEMP 98.1
[2018-12-24 18:58] VITALS: RESP 18
[2018-12-24 18:59] VITALS: BP 136/89; PULSE 68
[2018-12-24 19:12] LABS: Basophils # (A) 0.1 k/uL (0-0.2); Basophils % (A) 1 %; Eosinophils # (A) 0.3 k/uL (0-0.7); Eosinophils % (A) 3 %; HCT 40.8 % (39.0-53.0); HGB 13.4 gm/dL (13.0-17.5); Lymphocytes # (A) 1.1 k/uL (1.0-4.8); Lymphocytes % (A) 14 %; MCH 30.4 pg (25.0-35.0); MCHC 32.8 g/dL (31.0-37.0); MCV 92.6 fL (80.0-100.0); Mean Platelet Volume 6.7; Monocytes # (A) 0.6 k/uL (0-1.0); Monocytes % (A) 7 %; Neutrophils # (A) 5.8 k/uL (1.3-7.7); Neutrophils % (A) 73 %; Platelet Count 240 k/uL (150-450); RDW 13.4 % (11.5-15.5); WBC 8.1 k/uL (3.8-10.6)
[2018-12-24 19:13] LABS: Prothrombin Time 11.1 sec (9.0-12.0)
--- NOTE | 2018-12-24 19:18 | P.PN ---
Progress Note - Text Progress Note Date: 12/24/18 The patient is a 53 yo M with a PMH of major depression, HTN, HLD, DM, prostate ca, ?"lymph node cancer" who initially presented to the ED earlier today via petition by police for violating a restraining order by his ex-. The patient had reportedly texted his ex- a picture of him with rope on a tree, threatening her that he was going to hang himself. The police thereby petitioned him and brought him to the ED for suicidal ideation. In the ED, the patient was apparently agitated and stuttering, requiring Ativan 2 mg IM, and was subsequently admitted to the [facility] for suicidal ideation. Upon admission to the [facility]HU, the patient was noted to have continued and worsening stuttering, which he reported he gets when he is very upset. The patient was then noted to have R sided weakness and L sided facial droop, for which the travel writer was contacted @ 6:12 pm. The travel writer evaluated the patient and a code-stroke was activated @ 6:20 pm. The patient at the initial examination noted that he has never noticed weakness of any particular part of his body. The patient became increasingly lethargic during the interview, though continued to answer questions appropriately. He noted ocassionaly smoking marijuana but denied any other illicit substance use. He denied any previously history of strokes. The patient's vital signs @ 6:24 pm were: BP 138/87, P 74, R 18, T 98.1. Fingerstick 116. The patient otherwise denied headache, trauma to the head or neck, loss of consciousness, nausea, vomiting, or dizziness. NIHSS: 10 points General: Disheveled M, lethargic, appears stated age, obese HEENT: NC/AT, anicteric sclerae, moist conjunctiva, PERRLA Cardiovascular: S1/S2 wnl, no murmurs, rubs, or gallops Lungs: Clear to auscultation, normal respiratory effort, no accessory muscle use Abdominal: Soft, non-tender, non-distended, no guarding, rebound, or rigidity Skin: Warm, dry Extremities: No edema or contractures Psychiatric: Alert and oriented to person, place and time Neuro: L facial droop w/ sparing of forehead, RUE and RLE strength 3+/5, LUE and LLE 5/5, dysarthria w/ slurred speech, no aphasia, EOMI Plan: Suspected acute CVA -Stat neurology consult -Obtain CTA Head and neck -Obtain CBC, BMP, PT/INR, ECG, Urine Toxicology -Neurochecks -Transfer patient to Medicine -Fall, aspiration, seizure precautions
[2018-12-24 19:19] LABS: Calcium 8.8 mg/dL (8.4-10.2); Potassium 3.5 mmol/L (3.5-5.1); Total Bilirubin 0.5 mg/dL (0.2-1.3); Total Protein 6.8 g/dL (6.3-8.2)
--- NOTE | 2018-12-24 19:20 | CT ---
EXAMINATION TYPE: CT brain wo con DATE OF EXAM: 12/24/2018 HISTORY: Difficulty speaking. Acute strokelike symptoms. CT DLP: 526.50 mGycm. Automated Exposure Control for Dose Reduction was Utilized. TECHNIQUE: CT scan of the head is performed without contrast. COMPARISON: None. FINDINGS: There is no acute intracranial hemorrhage or midline shift identified. Ventricles and sul ci are within normal limits in size for patient's age. Jin-white matter differentiation is fairly we ll maintained. The globes are intact and the visualized sinuses are clear. IMPRESSION: No acute intracranial hemorrhage or midline shift.
--- NOTE | 2018-12-24 19:34 | CT ---
EXAMINATION TYPE: CT angio head neck DATE OF EXAM: 12/24/2018 HISTORY: Acute onset speech difficulties. COMPARISON: NONE Automated Exposure Control for Dose Reduction was Utilized. TECHNIQUE: CTA scan of the head and neck are performed with IV Contrast, patient injected with 65 mL of Isovue 300, axial images are obtained, coronal and sagittal reformatted images are reviewed. Thre e-D reconstructed images are created on an independent workstation and reviewed. FINDINGS: Carotid/Vascular Structures: Normal three-vessel origin from aortic arch. No significant plaque or st enosis in the right common or internal carotid arteries bilaterally. Patent external carotid arteries bilaterally without significant stenosis. Codominant vertebrobasilar system. Vertebral arteries are patent to basilar junction. Hypoplastic valeria ateral posterior communicating arteries. No significant stenosis or aneurysmal change. Patent anterior communicating artery not well seen. No significant focal stenosis or aneurysmal barrios e. Other: Loss of normal cervical curvature with moderate disc space narrowing C5-C6 level and mild ante rior spurring. IMPRESSION: No significant stenosis in common or internal carotid arteries bilaterally. No significa nt stenosis or aneurysmal change at the level of the [place] of [place].
[2018-12-24] MEDS ORDERED: lamoTRIgine 25 MG TAB PO SCH (21:00)
== END 2018-12-24 17:33 | disposition short-term general hospital (02) | DRG 880 ==
LOC: EC 14:23 → 3MHU 17:29
PROVIDERS: ADMIT Psychiatry & Neurology Psychiatry; ATTEND Psychiatry & Neurology Psychiatry
DX: R45.851 Suicidal ideations (principal); I63.9 Cerebral infarction, unspecified; G81.94 Hemiplegia, unspecified affecting left nondominant side; E11.9 Type 2 diabetes mellitus without complications; E66.9 Obesity, unspecified; E78.5 Hyperlipidemia, unspecified; F32.9 Major depressive disorder, single episode, unspecified; F90.9 Attention-deficit hyperactivity disorder, unspecified type; G47.30 Sleep apnea, unspecified; I10 Essential (primary) hypertension; I48.91 Unspecified atrial fibrillation; K21.9 Gastro-esophageal reflux disease without esophagitis; R29.710 NIHSS score 10; Z82.49 Family history of ischemic heart disease and other diseases of the circulatory system; Z85.46 Personal history of malignant neoplasm of prostate; Z87.891 Personal history of nicotine dependence; Z79.899 Other long term (current) drug therapy; Z88.2 Allergy status to sulfonamides; Z90.49 Acquired absence of other specified parts of digestive tract; Z68.31 Body mass index [BMI] 31.0-31.9, adult
CPT/HCPCS: 70450; 70496; 70498; 80053; 82075; 84484; 85025; 85610; 96372; 99285

== ENCOUNTER 2018-12-24 19:09 | Inpatient (IN) | payer MEDICARE ==
--- NOTE | 2018-12-24 21:22 | P.HPIM ---
History of Present Illness H&P Date: 12/24/18 The patient is a 53 yo M with a PMH of major depression, HTN, HLD, DM, prostate ca, ?"lymph node cancer" who initially presented to the ED earlier today via petition by police for violating a restraining order by his ex-. The patient had reportedly texted his ex- a picture of him with rope on a tree, threatening her that he was going to hang himself. The police thereby petitioned him and brought him to the ED for suicidal ideation. In the ED, the patient was apparently agitated and stuttering, requiring Ativan 2 mg IM, and was subsequently admitted to the [facility]HU for suicidal ideation. Upon admission to the MHU, the patient was noted to have continued and worsening stuttering, which he reported he gets when he is very upset. The patient was then noted to have R sided weakness and L sided facial droop, for which the typewriter assembly and parts inspector was contacted @ 6:12 pm. The typewriter assembly and parts inspector evaluated the patient and a code-stroke was activated @ 6:20 pm. The patient at the initial examination noted that he has never noticed weakness of any particular part of his body. The patient became increasingly lethargic during the interview, though continued to answer questions appropriately. He noted ocassionaly smoking marijuana but denied any other illicit substance use. He denied any previously history of strokes. The patient's vital signs @ 6:24 pm were: BP 138/87, P 74, R 18, T 98.1. Fingerstick 116. The patient otherwise denied headache, trauma to the head or neck, loss of consciousness, nausea, vomiting, or dizziness. NIHSS: 10 points. on my evaluation on the telemetry unit, the patient denied any pain or shortness of breath. CT of the head and neck was negative for any acute intracranial pathology. Labs were largely unremarkable with exception of slightly elevated BUN at 23 and blood sugar of 100. Blood pressure was 136/89 Review of Systems Pertinent positives per HPI all others ROS are negative Past Medical History Past Medical History: Atrial Fibrillation, Cancer, Diabetes Mellitus, GERD/Reflux, Hyperlipidemia, Hypertension, Musculoskeletal Disorder, Sleep Apnea/CPAP/BIPAP Additional Past Medical History / Comment(s): PROSTATE CANCER, DIABETES -DIET CONTROLLED, CHRONIC BACK PAIN WITH NERVE DAMAGE LEFT FOOT, STATES HX OF 1 EPISODE OF A-FIB, STATES HIGH BLOODPRESSURE-NO MEDS, CONSTIPATION. 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 06-16-14 PROSTATECTOMY Past Anesthesia/Blood Transfusion Reactions: No Reported Reaction, Previous Problems w/ Anesthesia Additional Past Anesthesia/Blood Transfusion Reaction / Comment(s): STATES DIFFICULT INTUBATION. Past Psychological History: ADD/ADHD, Anxiety, Depression Smoking Status: Former smoker Past Alcohol Use History: None Reported Past Drug Use History: Marijuana - Past Family History Mother Family Medical History: No Reported History Father Family Medical History: Myocardial Infarction (DC) Brother(s) Family Medical History: No Reported History Sister(s) Family Medical History: No Reported History Daughter(s) Family Medical History: No Reported History Medications and Allergies Home Medications Medication Instructions Recorded Confirmed Type Metoprolol Tartrate [Lopressor] 25 mg PO DAILY #30 tab 11/13/18 12/24/18 Rx amLODIPine [Norvasc] 10 mg PO DAILY #30 tab 11/13/18 12/24/18 Rx hydrOXYzine PAMOATE [Vistaril] 25 mg PO Q8HR PRN #30 cap 11/13/18 12/24/18 Rx lamoTRIgine [LaMICtal] 25 mg PO BID #60 tab 11/13/18 12/24/18 Rx Allergies Allergy/AdvReac Type Severity Reaction Status Date / Time Sulfa (Sulfonamide Allergy Unknown Anaphylaxis Verified 12/24/18 19:47 Antibiotics) Physical Exam Vitals: Intake and Output 12/24/18 12/24/18 12/24/18 06:59 14:59 22:59 Other: Weight 91 kg Constitutional: Disheveled, arousable but difficult to keep awake, appears stated age Eyes: Anicteric sclerae, moist conjunctiva, no lid-lag, PERRLA ENMT: NC/AT,Oropharynx clear, no erythema, exudates Neck:Supple, FROM, no masses, or JVD, No carotid bruits; No thyromegaly Lungs: Clear to auscultation, Clear to percussion, Normal respiratory effort, no accessory muscle use Cardiovascular: Heart regular in rate and rhythm, No murmurs, gallops, or rubs no peripheral edema Abdominal: Soft Nontender, nom distended, no guarding, no rebound or rigidity, Normoactive bowel sounds No hepatomegaly, No splenomegaly, No palpable mass No abdominal wall hernia noted Skin: Normal temperature, tone, texture, turgor, No induration No subcutaneous nodules, No rash, lesions, No ulcers Extremities:No digital cyanosis No clubbing, Pedal pulses intact and symmetrical Radial pulses intact and symmetrical gait not assessed Psychiatric: disoriented to situation and place Neuro: Left facial droop with sparing of forehead, speech intelligible but does not respond appropriately to questions, no aphasia or dysarthria, right upper extremity drift and weakness Results CBC & Chem 7: 12/25/18 06:10 12/25/18 06:10 Assessment and Plan Assessment: Altered mental status with confusion disorientation Essential hypertension Hyperlipidemia Type 2 diabetes History of A. fib History of prostate cancer Depression with suicidal ideation Plan: Patient is admitted anticipated greater than 2 midnight stay with altered mental status of this disorientation confusion after code stroke was called on the mental health unit where the patient was initially admitted for depression with suicidal ideation. There was no indication of a definitive last well-known time thus limiting the use of TPA, CT of his head and neck was negative for any acute atrial pathology, patient has risk factors for CVA, will order echocardiogram, MRI, bedside swallow eval, urine drug screen and plans a consult neurology. Aspirin will be ordered and we'll continue to monitor the patient for neuro checks and aspiration precautions. Hemodynamically the patient is stable his blood pressure slightly elevated we'll continue to monitor this, allow permissive hypertension per protocol. CODE STATUS: Full code Anticipated discharge: 1-2 days Prophylaxis: SCDs
[2018-12-24] MEDS ORDERED: ASPIRIN 81 MG PO STA (21:27)
[2018-12-24] MEDS: INSULIN ASPART (NovoLOG) 100 UNIT/ML VIAL SQ SCH (22:12)
[2018-12-24] MEDS: lamoTRIgine 25 MG TAB PO SCH (22:18)
[2018-12-24] MEDS: SODIUM CHLORIDE 0.9% 1,000 ML IV SCH (22:51)
[2018-12-25 02:57] LABS: Amphetamine Screen,Urine Detected (NotDetected); Barbiturate Screen,Urine Not Detected (NotDetected); Benzodiazepines Screen,Urine Not Detected (NotDetected); Cocaine Screen,Urine Not Detected (NotDetected); Methadone Screen, Urine Not Detected (NotDetected); Opiate Screen,Urine Not Detected (NotDetected); Oxycodone Screen, Urine Not Detected (NotDetected); Phencyclidine Screen,Urine Not Detected (NotDetected); Tricyclic Antidepressant,Urine Not Detected (NotDetected); Urn Cannabinoid Scrn Not Detected (NotDetected)
[2018-12-25 06:13] LABS: Glucose,Whole Blood 86 mg/dL (75-99)
[2018-12-25] MEDS: INSULIN ASPART (NovoLOG) 100 UNIT/ML VIAL SQ SCH ×4 (06:18→21:42)
[2018-12-25 07:26] LABS: Basophils # (A) 0.1 k/uL (0-0.2); Basophils % (A) 1 %; Eosinophils # (A) 0.5 k/uL (0-0.7); Eosinophils % (A) 7 %; HCT 42.8 % (39.0-53.0); HGB 13.7 gm/dL (13.0-17.5); Lymphocytes # (A) 1.8 k/uL (1.0-4.8); Lymphocytes % (A) 30 %; MCH 29.1 pg (25.0-35.0); MCHC 32.1 g/dL (31.0-37.0); MCV 90.5 fL (80.0-100.0); Mean Platelet Volume 6.6; Monocytes # (A) 0.5 k/uL (0-1.0); Monocytes % (A) 8 %; Neutrophils # (A) 3.2 k/uL (1.3-7.7); Neutrophils % (A) 51 %; Platelet Count 241 k/uL (150-450); RBC 4.73 m/uL (4.30-5.90); RDW 13.4 % (11.5-15.5); WBC 6.3 k/uL (3.8-10.6)
[2018-12-25] MEDS: SODIUM CHLORIDE 0.9% 1,000 ML IV SCH ×2 (07:33→12:02)
[2018-12-25 07:35] LABS: Calcium 8.7 mg/dL (8.4-10.2); Potassium 3.7 mmol/L (3.5-5.1); Total Bilirubin 0.8 mg/dL (0.2-1.3)
[2018-12-25] MEDS: lamoTRIgine 25 MG TAB PO SCH ×2 (07:44→21:44)
[2018-12-25] MEDS: amLODIPine 10 MG TAB PO SCH (07:44)
[2018-12-25] MEDS: METOPROLOL TARTRATE 25 MG TAB PO SCH (07:44)
[2018-12-25] MEDS: ASPIRIN 325 MG TAB PO SCH (07:44)
[2018-12-25] MEDS ORDERED: LORazepam 1 MG TAB PO STA (09:25)
[2018-12-25 11:49] LABS: Glucose,Whole Blood 151 mg/dL (75-99)
--- NOTE | 2018-12-25 12:41 | ECHOF ---
Referral Reason:Thrombus MEASUREMENTS -------- HEIGHT: 170.2 cm WEIGHT: 93.9 kg BP: 140/87 IVSd: 1.4 cm (0.6 - 1.1) LVIDd: 3.7 cm (3.9 - 5.3) LVPWd: 1.3 cm (0.6 - 1.1) IVSs: 1.9 cm LVIDs: 2.1 cm LVPWs: 1.8 cm LAESV Index (A-L): 16.31 ml/m Ao Diam: 3.6 cm (2.0 - 3.7) AV Cusp: 2.4 cm (1.5 - 2.6) LA Diam: 2.6 cm (2.7 - 3.8) MV EXCURSION: 17.007 mm (> 18.000) MV EF SLOPE: 96 mm/s (70 - 150) EPSS: 1.6 cm MV E Matthew: 0.39 m/s MV DecT: 250 ms MV A Matthew: 0.52 m/s MV E/A Ratio: 0.74 RAP: 5.00 mmHg RVSP: 24.02 mmHg TAPSE: 21.08 mm FINDINGS -------- Sinus rhythm. This was a technically good study. The left ventricular size is normal. There is moderate concentric left ventricular hypertrophy. O verall left ventricular systolic function is normal with, an EF between 55 - 60 %. The diastolic fi lling pattern is normal for the age of the patient 5.83. The right ventricle is normal in size. The right ventricular systolic function is normal. The left atrial size is normal. Normal LA size by volume 22+/-6 ml/m2. The right atrial size is normal. Interatrial and interventricular septum intact. Aortic valve is trileaflet and is mildly thickened. The mitral valve is normal. The mitral valve leaflets are mildly thickened. Mild mitral regurgita tion is present. Mild tricuspid regurgitation present. Right ventricular systolic pressure is normal at < 35 mmHg. There is no evidence of pulmonary hypertension. There is no pulmonic regurgitation present. The aortic root size is normal. Normal inferior vena cava with normal inspiratory collapse consistent with estimated right atrial pre ssure of 5 mmHg. There is no pericardial effusion. CONCLUSIONS -------- 1. Sinus rhythm. 2. This was a technically good study. 3. The left ventricular size is normal. 4. There is moderate concentric left ventricular hypertrophy. 5. Overall left ventricular systolic function is normal with, an EF between 55 - 60 %. 6. The diastolic filling pattern is normal for the age of the patient 5.83 7. The right ventricle is normal in size. 8. The right ventricular systolic function is normal. 9. The left atrial size is normal. 10. Normal LA size by volume 22+/-6 ml/m2. 11. The right atrial size is normal. 12. Interatrial and interventricular septum intact. 13. Aortic valve is trileaflet and is mildly thickened. 14. The mitral valve is normal. 15. The mitral valve leaflets are mildly thickened. 16. Mild mitral regurgitation is present. 17. Mild tricuspid regurgitation present. 18. Right ventricular systolic pressure is normal at < 35 mmHg. 19. There is no evidence of pulmonary hypertension. 20. There is no pulmonic regurgitation present. 21. The aortic root size is normal. 22. Normal inferior vena cava with normal inspiratory collapse consistent with estimated right atrial pressure of 5 mmHg. 23. There is no pericardial effusion. MEDICAL DIAGNOSTIC RADIOGRAPHER: Nicole Cummings RDCS
--- NOTE | 2018-12-25 13:19 | P.CNNES ---
History of Present Illness Consult date: 12/25/18 Reason for Consult: Concern for stroke Chief complaint: Suicidal ideation History of Present Illness: HISTORY OF PRESENT ILLNESS: Thank you for allowing me to evaluate Mr. Tony Lam. Mr. Dominique is a 53-year-old man with past medical history of atrial fibrillation, diabetes (diet controlled), GERD, hyperlipidemia, hypertension, sleep apnea, prostate cancer/lymph node cancer, chronic back pain, ADHD, anxiety, depression, who initially presented to [facility] for suicidal ideation, consulted neurology for concern for stroke. The patient was initially evaluated by the emergency physician, patient does not have any focal weakness. However, patient was noted to have right upper extremity weakness and left facial droop, for which stroke code was called. Patient did not receive TPA and was not a candidate for thrombectomy. Patient was also found to be positive for amphetamine/amphetamine. Patient at time of evaluation is sleeping, and having significant drowsiness. The sitter states that he has been sleeping most of the day. However, patient does open eyes to verbal stimuli, he does follow most commands. Denies any headache, nausea, vomiting, pain. PAST MEDICAL HISTORY: Atrial fibrillation, diabetes (diet controlled), GERD, hyperlipidemia, h ypertension, sleep apnea, prostate cancer/lymph node cancer, chronic back pain, PAST SURGICAL HISTORY: Appendectomy, back surgery, cholecystectomy, tonsillectomy, prostatectomy HOME MEDICATIONS: Lamotrigine, metoprolol, amlodipine, hydroxyzine PRN ALLERGIES: Sulfa SOCIAL HISTORY: Former smoker. Denies alcohol abuse history. Endorses marijuana use FAMILY HISTORY: Father with NC. REVIEW OF SYSTEMS: The 14 systems are reviewed and no additional points are identified compared to the review of systems documented history and physical PHYSICAL EXAMINATION: VITAL SIGNS: T 98.2 HR 77 RR 18 BP 142/87 O2 sat 98% on RA GEN.: NAD, very drowsy but cooperative HEENT: NCAT, sclera without icterus NECK: Supple SKIN AND EXTREMITIES: Warm to touch, no edema NEURO: MENTAL STATUS: Patient alert and oriented to self, place, time. Able to name the current president. Mumbles when he speaks, able to name and repeat, following most commands readily. No right and left disorientation, neglect. CRANIAL NERVES II THROUGH XII: II: Left pupil is smaller than right pupil, both are reactive to light equally. Placed to threat bilaterally III, IV, : No ptosis. Extraocular movements full. No nystagmus. VII. left facial droop XII: Tongue midline without fasciculation or atrophy. MOTOR: Normal bulk/tone. No tremor. Able to keep left upper extremity against gravity. Right upper extremity drops immediately was slowly after being released from my hand. Patient is able to keep his left lower extremity against gravity for 5 seconds. His right lower extremity drops to the bed before heading to 5 second marked SENSORY: Decreased to light touch and pinprick in left upper and lower extremities REFLEXES: 2+ throughout. Toes are downgoing. COORDINATION/GAIT: Deferred as patient with significant drowsiness DIAGNOSTIC TESTING: LABORATORY: WBC 6.3 hemoglobin 13.7 platelet 241 sodium 141 potassium 3.7 chloride 105 bicarb 27 BUN 19 creatinine 1.22 glucose 86 AST 26 ALT 22 alk phos 62 UTox amphetamine/meth positive IMAGING: CT head without contrast 12/24/2018: No acute intracranial hemorrhage or midline shift. CTA head and neck with and without contrast 12/24/2018: No significant stenosis and common or internal carotid arteries bilaterally. No significant stenosis or aneurysm change at the level of the [place] Transthoracic echocardiogram 12/25/2018: Sinus rhythm. LV/RV/LA/RA sizes are normal. EF 55-60% ASSESSMENT: Mr. Dominique is a 53-year-old man with past medical history of atrial fibrillation, diabetes (diet controlled), GERD, hyperlipidemia, hypertension, sleep apnea, prostate cancer/lymph node cancer, chronic back pain, ADHD, anxiety, depression, who initially presented to [facility] for suicidal ideation, consulted neurology for concern for stroke. On exam, patient found with left eye miosis, left facial droop along with right upper extremity and lower extremity weakness, concerning for a stroke involving the brainstem, specifically the medulla. Patient was found with urine tox positive for amphetamine/methamphetamine. Patient with multiple risk factors for stroke. It is unclear if patient is taking all his medications. Patient is also not on any antiplatelet or anticoagulation even though he has a history of atrial fibrillation. Transthoracic echocardiogram showing normal left atrial size. RECOMMENDATIONS: 1. MRI brain without contrast 2. CTA of head and neck with and without contrast 3. Cardiac monitoring 4. Permissive HTN for 24-48 hours SBP >220. Give labetalol 10mg IV q1h PRN for SBP >220 DBP >110 5. ASA 81mg qday, Atorvastatin 80mg qhs67. Labs: A1C, TSH, FLP 7. PT/OT/ST per protocol 8. Discussed with patient about stroke prevention guidelines. Medication compliance, hypertension/diabetes control, lifestyle changes including no smoking, drinking in moderation, losing weight, exercising, eating healthier 9. Neurology will continue to follow 10. Patient needs to follow up with neurologist as outpatient with her 1-2 weeks of discharge Past Medical History Past Medical History: Atrial Fibrillation, Cancer, Diabetes Mellitus, GERD/Reflux, Hyperlipidemia, Hypertension, Musculoskeletal Disorder, Sleep Apnea/CPAP/BIPAP Additional Past Medical History / Comment(s): PROSTATE CANCER, DIABETES -DIET CONTROLLED, CHRONIC BACK PAIN WITH NERVE DAMAGE LEFT FOOT, STATES HX OF 1 EPISODE OF A-FIB, STATES HIGH BLOODPRESSURE-NO MEDS, CONSTIPATION. 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 06-16-14 PROSTATECTOMY Past Anesthesia/Blood Transfusion Reactions: No Reported Reaction, Previous Problems w/ Anesthesia Additional Past Anesthesia/Blood Transfusion Reaction / Comment(s): STATES DIFFICULT INTUBATION. Past Psychological History: ADD/ADHD, Anxiety, Depression Smoking Status: Former smoker Past Alcohol Use History: None Reported Past Drug Use History: Marijuana - Past Family History Mother Family Medical History: No Reported History Father Family Medical History: Myocardial Infarction (NC) Brother(s) Family Medical History: No Reported History Sister(s) Family Medical History: No Reported History Daughter(s) Family Medical History: No Reported History Medications and Allergies Home Medications Medication Instructions Recorded Confirmed Type Metoprolol Tartrate [Lopressor] 25 mg PO DAILY #30 tab 11/13/18 12/24/18 Rx amLODIPine [Norvasc] 10 mg PO DAILY #30 tab 11/13/18 12/24/18 Rx hydrOXYzine PAMOATE [Vistaril] 25 mg PO Q8HR PRN #30 cap 11/13/18 12/24/18 Rx lamoTRIgine [LaMICtal] 25 mg PO BID #60 tab 11/13/18 12/24/18 Rx Allergies Allergy/AdvReac Type Severity Reaction Status Date / Time Sulfa (Sulfonamide Allergy Unknown Anaphylaxis Verified 12/24/18 19:47 Antibiotics) Physical Examination - Vital Signs Vital Signs: Vital Signs Temp Pulse Resp BP Pulse Ox 12/25/18 07:32 98.2 F 77 18 142/87 98 12/25/18 04:00 98.2 F 62 16 140/87 98 12/25/18 00:00 98.2 F 65 16 127/80 98 12/24/18 20:00 98.4 F 68 18 141/94 97 Intake and Output 12/24/18 12/25/18 12/25/18 22:59 06:59 14:59 Intake Total 480 Output Total 450 Balance -450 480 Intake: Oral 480 Output: Urine 450 Other: Voiding Method Urinal # Voids 1 0 Weight 91 kg 94.2 kg Results - Laboratory Findings CBC and BMP: 12/25/18 06:10 12/25/18 06:10 Abnormal Lab Findings: Abnormal Labs 12/24/18 21:00 Ur Amphetamines Screen Detected H U Methamphetamines Scrn Detected H
[2018-12-25] MEDS ORDERED: LORazepam 2 MG/ML INJ IV STA (14:53)
--- NOTE | 2018-12-25 15:16 | P.PN ---
Subjective Progress Note Date: 12/25/18 The patient was seen and examined at the bedside. The patient notes continued right sided upper extremity and lower extremity weakness along with left-sided facial weakness and paresthesias. He also notes continued stuttering. He however denied headaches, nausea, vomiting, or neck pain. He also denied visual disturbances. Denied fever, chills, or cough. Objective - Vital Signs Vital signs: Vital Signs Temp 98.3 F 12/25/18 12:00 Pulse 61 12/25/18 12:00 Resp 18 12/25/18 12:00 BP 138/82 12/25/18 12:00 Pulse Ox 97 12/25/18 12:00 Intake & Output 12/24/18 12/25/18 12/25/18 18:59 06:59 18:59 Intake Total 480 Output Total 450 Balance -450 480 Weight 94.2 kg Intake: Oral 480 Output: Urine 450 Other: Voiding Method Urinal # Voids 0 - Exam General: Non-toxic, in no acute distress, appears stated age, obese HEENT: NC/AT, anicteric sclerae, moist conjunctiva, no lid-lag, left sided miosis Cardiovascular: S1/S2 wnl, no murmurs, rubs, or gallops Lungs: Clear to auscultation, normal respiratory effort, no accessory muscle use Abdominal: Soft, non-tender, non-distended, no guarding, rebound, or rigidity Skin: Warm, dry Extremities: No edema or contractures Psychiatric:Lethargic, though oriented to person, place and time Neuro: RUE and RLE strength 3+/5, L facial droop with sparing of forehead - Labs CBC & Chem 7: 12/25/18 06:10 12/25/18 06:10 Labs: Abnormal Lab Results - Last 24 Hours (Table) 12/24/18 12/25/18 Range/Units 21:00 11:47 POC Glucose (mg/dL) 151 H (75-99) mg/dL Ur Amphetamines Screen Detected H (NotDetected) U Methamphetamines Scrn Detected H (NotDetected) Assessment and Plan Plan: R sided weakness w/ L facial droop in setting of lethargy, concerns for acute CVA -Neurology recommendations appreciated -C/w Aspirin and Statin -Permissive HTN w/ guidelines as per Neurology recommendations -F/u brain MRI -Neurochecks q4h -Fall, aspiration, seizure precautions -Speech and swallow evaluation -Carotid duplex -Echocardiogram -PT/OT consult -F/u A1C and lipid panel Hx of A-fib -It appears that patient only had a single episode of lone A-fib several years ago -Upon chart review and as per the patient, he hasn't been on anticoagulation Suicidal ideation -C/w sitter for now -Will require transfer to [facility]HU following medicine discharge HTN -C/w home med: permissive HTN HLD -C/w Lipitor DVT prophylaxis -IPCDs Discussed with: Patient Anticipated discharge date: 12/28/[address]: MHU A total of 35 minutes was spent on the care of this complex patient more than 50% of the time was spent in counseling and care coordination.
--- NOTE | 2018-12-25 15:23 | MR ---
EXAMINATION TYPE: MR brain wo con DATE OF EXAM: 12/25/2018 COMPARISON: CT brain 12/24/2018 HISTORY: Difficulty speaking TECHNIQUE: T1-weighted sagittal, T2, FLAIR, and diffusion axial, and T2 coronal coronal views of the brain are submitted. FINDINGS: There is no evidence of acute ischemia. The ventricles, basal cisterns, and sulci overlying the conv exities are consistent with the patient's age. There is no mass effect. There is fairly symmetric patchy ill-defined attenuation within the white matter bilaterally. Changes of chronic sinusitis noted. Exam limited by motion artifact. Craniocervical junction maintained. Sella turcica has a normal appearance. Focal 3 mm area of abnormal signal the white matter superior left parietal lobe. No cerebellopontine angle mass. IMPRESSION: 1. No acute ischemia on diffusion imaging. There is increased signal within the normal signal void of the internal carotid arteries bilaterally which could be artifactual. However, MRA [place] of [place] is recommended. Recent CTA of the brain demonstrate normal enhancement and therefore this is felt to BE most likely artifactual. 2. FLAIR imaging demonstrates some patchy ill-defined bilateral fairly symmetric white matter changes . This is a nonspecific finding can be seen with demyelination or remote microvascular ischemia. Jerry elate clinically to exclude infectious etiologies.
[2018-12-25 16:34] LABS: Glucose,Whole Blood 103 mg/dL (75-99)
[2018-12-25 19:05] LABS: Hemoglobin A1C 5.3 % (4.0-6.0)
[2018-12-25 21:05] LABS: Glucose,Whole Blood 119 mg/dL (75-99)
[2018-12-25] MEDS: ATORVASTATIN 80 MG TAB PO SCH (21:44)
[2018-12-26] MEDS: SODIUM CHLORIDE 0.9% 1,000 ML IV SCH ×3 (03:45→20:35)
[2018-12-26 05:56] LABS: Glucose,Whole Blood 150 mg/dL (75-99)
[2018-12-26] MEDS: INSULIN ASPART (NovoLOG) 100 UNIT/ML VIAL SQ SCH ×4 (06:28→20:29)
[2018-12-26] MEDS: lamoTRIgine 25 MG TAB PO SCH ×2 (09:04→20:34)
[2018-12-26] MEDS: METOPROLOL TARTRATE 25 MG TAB PO SCH (09:05)
[2018-12-26] MEDS: amLODIPine 10 MG TAB PO SCH (09:05)
[2018-12-26] MEDS: ASPIRIN 325 MG TAB PO SCH (09:05)
--- NOTE | 2018-12-26 11:10 | P.PN ---
Subjective Progress Note Date: 12/26/18 Patient seen and examined, sleepy but arousable and oriented, continues to have stuttering with nursing report previously that it was his baseline. Still has left facial droop and right upper Perdue weakness and drift/ no acute events overnight blood pressure stable Objective - Vital Signs Vital signs: Vital Signs Temp 97.9 F 12/26/18 08:00 Pulse 73 12/26/18 08:00 Resp 18 12/26/18 08:00 BP 122/76 12/26/18 08:00 Pulse Ox 97 12/26/18 08:00 Intake & Output 12/25/18 12/26/18 12/26/18 18:59 06:59 18:59 Intake Total 480 460 360 Output Total 600 Balance 480 -140 360 Intake: Intake, IV Titration 100 Amount Sodium Chloride 0.9% 1, 100 000 ml @ 100 mls/hr IV . Q10H EMILY Rx#:[id number] Oral 480 360 360 Output: Urine 600 Other: Voiding Method Urinal Urinal # Voids 2 - Exam Constitutional: No acute distress, conversant, pleasant Eyes: Anicteric sclerae, moist conjunctiva, no lid-lag, PERRLA ENMT: NC/AT,Oropharynx clear, no erythema, exudates Neck:Supple, FROM, no masses, or JVD, No carotid bruits; No thyromegaly Lungs: Clear to auscultation, Clear to percussion, Normal respiratory effort, no accessory muscle use Cardiovascular: Heart regular in rate and rhythm, No murmurs, gallops, or rubs no peripheral edema Abdominal: Soft Nontender, nom distended, no guarding, no rebound or rigidity, Normoactive bowel sounds No hepatomegaly, No splenomegaly, No palpable mass No abdominal wall hernia noted Skin: Normal temperature, tone, texture, turgor, No induration No subcutaneous nodules, No rash, lesions, No ulcers Extremities:No digital cyanosis No clubbing, Pedal pulses intact and symmetrical Radial pulses intact and symmetrical Normal gait and station, No calf tenderness Psychiatric: Alert and oriented to person, place and time, Appropriate affect Intact judgement Neuro: Muscles Strength 5/5 in all 4 extremities, Sensation to light touch grossly present throughout, Cranial nerves II-XII grossly intact. No focal sensory deficits - Labs CBC & Chem 7: 12/25/18 06:10 12/25/18 06:10 Labs: Abnormal Lab Results - Last 24 Hours (Table) 12/25/18 12/25/18 12/25/18 Range/Units 11:47 16:32 21:04 POC Glucose (mg/dL) 151 H 103 H 119 H (75-99) mg/dL HDL Cholesterol (40-60) mg/dL 12/26/18 12/26/18 Range/Units 05:54 06:01 POC Glucose (mg/dL) 150 H (75-99) mg/dL HDL Cholesterol 39 L (40-60) mg/dL Assessment and Plan Assessment: R sided weakness w/ L facial droop in setting of lethargy, concerns for acute CV A -Neurology recommendations appreciated -C/w Aspirin and Statin -Permissive HTN w/ guidelines as per Neurology recommendations -brain MRI negative for any acute ischemia, patchy bilateral white matter changes which are nonspecific and can be seen with demyelination -Neurochecks q4h -Fall, aspiration, seizure precautions -Speech and swallow evaluation -Carotid duplex -Echocardiogram showing preserved LVEF 55-60% with no significant valvular abnormalities -PT/OT consult -F/u A1C and lipid panel Hx of A-fib -It appears that patient only had a single episode of lone A-fib several years ago -Upon chart review and as per the patient, he hasn't been on anticoagulation Suicidal ideation -C/w sitter for now -Will require transfer to [facility] following medicine discharge HTN -C/w home med: permissive HTN Methamphetamine abuse * UDS positive for methamphetamine HLD -C/w Lipitor DVT prophylaxis -IPCDs Discussed with: Patient Anticipated discharge date: 12/28/[address]: [facility] A total of 35 minutes was spent on the care of this complex patient more than 50% of the time was spent in counseling and care coordination.
[2018-12-26 12:26] LABS: Glucose,Whole Blood 126 mg/dL (75-99)
--- NOTE | 2018-12-26 16:25 | P.PN ---
Progress Note - Text Progress Note Date: 12/26/18 SUBJECTIVE/INTERVAL EVENTS: No acute overnight events. Patient still very drowsy. No complaints at this time. Denies headache, nausea, vomiting. Still has R-sided weakness and paresthesia. PHYSICAL EXAMINATION: VITAL SIGNS: T 98.7 HR 73 RR 18 BP 141/82 O2 sat 95% on RA GEN.: NAD, very drowsy but cooperative HEENT: NCAT, sclera without icterus NECK: Supple SKIN AND EXTREMITIES: Warm to touch, no edema NEURO: MENTAL STATUS: Patient alert and oriented to self, place, time. Able to name the current president. Mumbles when he speaks, able to name and repeat, following most commands readily. No right and left disorientation, neglect. CRANIAL NERVES II THROUGH XII: II: Left pupil is smaller than right pupil, both are reactive to light equally. Placed to threat bilaterally III, IV, : No ptosis. Extraocular movements full. No nystagmus. VII. left facial droop XII: Tongue midline without fasciculation or atrophy. MOTOR: Normal bulk/tone. No tremor. Able to keep left upper extremity against gravity. Right upper extremity drops immediately was slowly after being released from my hand. Patient is able to keep his left lower extremity against gravity for 5 seconds. His right lower extremity drops to the bed before heading to 5 second marked SENSORY: Decreased to light touch and pinprick in left upper and lower extremities REFLEXES: 2+ throughout. Toes are downgoing. COORDINATION/GAIT: Deferred as patient with significant drowsiness DIAGNOSTIC TESTING: LABORATORY: WBC 6.3 hemoglobin 13.7 platelet 241 sodium 141 potassium 3.7 chloride 105 bicarb 27 BUN 19 creatinine 1.22 glucose 86 AST 26 ALT 22 alk phos 62 UTox amphetamine/meth positive Total cholesterol 158 LDL 95 HDL 39. TSH 1.680 triglycerides 119+ IMAGING: MRI brain without contrast 12/25/2018: No acute ischemia on diffusion imaging. There is increased signal within the normal signal forward of the ICAs bilaterally which could be artifactual. Recent CTA of the brain demonstrated normal enhancement, likely artifact. Ill-defined bilateral fairly symmetric bilateral changes, nonspecific. CT head without contrast 12/24/2018: No acute intracranial hemorrhage or midline shift. CTA head and neck with and without contrast 12/24/2018: No significant stenosis and common or internal carotid arteries bilaterally. No significant stenosis or aneurysm change at the level of the [place] Transthoracic echocardiogram 12/25/2018: Sinus rhythm. LV/RV/LA/RA sizes are normal. EF 55-60% ASSESSMENT: Mr. Dominique is a 53-year-old man with past medical history of atrial fibrillation, diabetes (diet controlled), GERD, hyperlipidemia, hypertension, sleep apnea, prostate cancer/lymph node cancer, chronic back pain, ADHD, anxiety, depression, who initially presented to [facility] for suicidal ideation, consulted neurology for concern for stroke. On exam, patient found with left eye miosis, left facial droop along with right upper extremity and lower extremity weakness, concerning for a stroke involving the brainstem, specifically the medulla. Patient was found with urine tox positive for a mphetamine/methamphetamine. Patient with multiple risk factors for stroke. It is unclear if patient is taking all his medications. Patient is also not on any antiplatelet or anticoagulation even though he has a history of atrial fibrillation. Transthoracic echocardiogram showing normal left atrial size. MRI brain w/o contrast with no acute infarct but possible lesion in the L daniella/medulla, which could cause his symptoms of L facial droop and R-sided weakness and numbness, but the lesion is more nonspecific. Patient with risk factors for stroke, and he should be on medical management for stroke prevention. RECOMMENDATIONS: 1. Cardiac monitoring (no atrial arrhythmia observed so far). Patient should be on Holter monitor or get a loop recorder placed for long-term evaluation 2. ASA 81mg qday, Atorvastatin 80mg qhs 3. Labs: A1C 4. PT/OT/ST per protocol 5. Discussed with patient about stroke prevention guidelines. Medication compliance, hypertension/diabetes control, lifestyle changes including no smoking, drinking in moderation, losing weight, exercising, eating healthier and not using cocaine 6. Patient needs to follow up with neurologist as outpatient with her 1-2 weeks of discharge 7. Neurology will sign off at this time. Neurology is not available over the weekend in-house. However, feel free to [employer] message me over the weekend if you have any questions or concerns
[2018-12-26 16:50] LABS: Glucose,Whole Blood 115 mg/dL (75-99)
[2018-12-26] MEDS: hydrOXYzine PAMOATE 25 MG CAP PO PRN (18:04)
[2018-12-26 20:28] LABS: Glucose,Whole Blood 110 mg/dL (75-99)
[2018-12-26] MEDS: ATORVASTATIN 80 MG TAB PO SCH (20:34)
[2018-12-27 06:22] LABS: Glucose,Whole Blood 86 mg/dL (75-99)
[2018-12-27] MEDS: INSULIN ASPART (NovoLOG) 100 UNIT/ML VIAL SQ SCH ×4 (06:30→21:26)
[2018-12-27] MEDS: SODIUM CHLORIDE 0.9% 1,000 ML IV SCH ×2 (08:51→17:37)
[2018-12-27] MEDS: ASPIRIN 325 MG TAB PO SCH (08:51)
[2018-12-27] MEDS: METOPROLOL TARTRATE 25 MG TAB PO SCH (08:51)
[2018-12-27] MEDS: amLODIPine 10 MG TAB PO SCH (08:51)
[2018-12-27] MEDS: lamoTRIgine 25 MG TAB PO SCH ×2 (08:51→20:55)
[2018-12-27 11:51] LABS: Glucose,Whole Blood 114 mg/dL (75-99)
[2018-12-27] MEDS: hydrOXYzine PAMOATE 25 MG CAP PO PRN ×2 (13:50→20:55)
[2018-12-27 16:54] LABS: Glucose,Whole Blood 108 mg/dL (75-99)
[2018-12-27 19:58] LABS: Glucose,Whole Blood 145 mg/dL (75-99)
[2018-12-27] MEDS: ATORVASTATIN 80 MG TAB PO SCH (20:55)
[2018-12-28] MEDS: SODIUM CHLORIDE 0.9% 1,000 ML IV SCH (05:47)
[2018-12-28 06:19] LABS: Glucose,Whole Blood 154 mg/dL (75-99)
[2018-12-28] MEDS: INSULIN ASPART (NovoLOG) 100 UNIT/ML VIAL SQ SCH ×4 (06:34→21:09)
[2018-12-28] MEDS: lamoTRIgine 25 MG TAB PO SCH ×2 (08:49→20:27)
[2018-12-28] MEDS: amLODIPine 10 MG TAB PO SCH (08:49)
[2018-12-28] MEDS: ASPIRIN 325 MG TAB PO SCH (08:49)
[2018-12-28] MEDS: METOPROLOL TARTRATE 25 MG TAB PO SCH (08:49)
--- NOTE | 2018-12-28 10:50 | P.PN ---
Subjective Progress Note Date: 12/27/18 Patient seen and examined, sleepy but arousable and oriented, continues to have stuttering with nursing report previously that it was his baseline. Still has left facial droop and right upper Perdue weakness and drift/ no acute events overnight blood pressure stable Objective - Vital Signs Vital signs: Vital Signs Temp 96.3 F L 12/27/18 08:00 Pulse 79 12/27/18 16:00 Resp 18 12/27/18 04:00 BP 140/87 12/27/18 16:00 Pulse Ox 96 12/27/18 16:00 Intake & Output 12/26/18 12/27/18 12/27/18 18:59 06:59 18:59 Intake Total 726 826 7189 Output Total 900 500 Balance -60 -380 1320 Weight 95.5 kg Intake: Oral 938 030 6379 Output: Urine 900 500 Other: Voiding Method Urinal Urinal - Exam Constitutional: No acute distress, conversant, pleasant Eyes: Anicteric sclerae, moist conjunctiva, no lid-lag, PERRLA ENMT: NC/AT,Oropharynx clear, no erythema, exudates Neck:Supple, FROM, no masses, or JVD, No carotid bruits; No thyromegaly Lungs: Clear to auscultation, Clear to percussion, Normal respiratory effort, no accessory muscle use Cardiovascular: Heart regular in rate and rhythm, No murmurs, gallops, or rubs no peripheral edema Abdominal: Soft Nontender, nom distended, no guarding, no rebound or rigidity, Normoactive bowel sounds No hepatomegaly, No splenomegaly, No palpable mass No abdominal wall hernia noted Skin: Normal temperature, tone, texture, turgor, No induration No subcutaneous nodules, No rash, lesions, No ulcers Extremities:No digital cyanosis No clubbing, Pedal pulses intact and symmetrical Radial pulses intact and symmetrical Normal gait and station, No calf tenderness Psychiatric: Alert and oriented to person, place and time, Appropriate affect Intact judgement Neuro: Muscles Strength 5/5 in all 4 extremities, Sensation to light touch grossly present throughout, Cranial nerves II-XII grossly intact. No focal sensory deficits - Labs CBC & Chem 7: 12/25/18 06:10 12/25/18 06:10 Labs: Abnormal Lab Results - Last 24 Hours (Table) 12/26/18 12/27/1812/27/19 Range/Units 20:27 11:47 16:53 POC Glucose (mg/dL) 110 H 114 H 108 H (75-99) mg/dL Assessment and Plan Assessment: R sided weakness w/ L facial droop in setting of lethargy, concerns for acute CVA -Neurology recommendations appreciated -C/w Aspirin and Statin -Permissive HTN w/ guidelines as per Neurology recommendations -brain MRI negative for any acute ischemia, patchy bilateral white matter barrios es which are nonspecific and can be seen with demyelination -Neurochecks q4h -Fall, aspiration, seizure precautions -Echocardiogram showing preserved LVEF 55-60% with no significant valvular abnormalities -PT/OT consult -F/u A1C and lipid panel Hx of A-fib -It appears that patient only had a single episode of lone A-fib several years ago -Upon chart review and as per the patient, he hasn't been on anticoagulation Suicidal ideation -C/w sitter for now -Will require transfer to [facility] following medicine discharge HTN -C/w home med: permissive HTN Methamphetamine abuse * UDS positive for methamphetamine HLD -C/w Lipitor DVT prophylaxis -IPCDs Discussed with: Patient Anticipated discharge date: 12/28/[address]: [facility] A total of 35 minutes was spent on the care of this complex patient more than 50% of the time was spent in counseling and care coordination.
[2018-12-28 12:10] LABS: Glucose,Whole Blood 145 mg/dL (75-99)
[2018-12-28] MEDS: hydrOXYzine PAMOATE 25 MG CAP PO PRN ×2 (12:24→20:27)
--- NOTE | 2018-12-28 16:39 | P.PN ---
Subjective Progress Note Date: 12/28/18 Principal diagnosis: Stroke Patient still having stuttering speech, also still weak on the right side. No new overnight events. Objective - Vital Signs Vital signs: Vital Signs Temp 98.0 F 12/28/18 08:00 Pulse 67 12/28/18 12:00 Resp 16 12/28/18 03:47 BP 143/94 12/28/18 12:00 Pulse Ox 98 12/28/18 12:00 Intake & Output 12/27/18 12/28/18 12/28/18 18:59 06:59 18:59 Intake Total 1320 0 840 Output Total 400 Balance 1320 -400 840 Weight 97.8 kg Intake: Intake, IV Titration 0 Amount Sodium Chloride 0.9% 1, 0 000 ml @ 100 mls/hr IV . Q10H EMILY Rx#:[id number] Oral 1320 840 Output: Urine 400 Other: Voiding Method Urinal Urinal # Voids 1 1 - Exam Constitutional: No acute distress, conversant, pleasant Eyes:Anicteric sclerae, moist conjunctiva, no lid-lag, PERRLA, ENMT: Oropharynx clear, no erythema, exudates Neck: Supple, FROM, no masses, or JVD, No carotid bruits, No thyromegaly Lungs: Clear to auscultation, Clear to percussion, Normal respiratory effort, no accessory muscle use Cardiovascular: Heart regular in rate and rhythm, No murmurs, gallops, or rubs, No peripheral edema Abdominal: Soft, Nontender, no guarding, rebound or rigidity, Normoactive bowel sounds, No hepatomegaly, No splenomegaly, No palpable mass Skin: Normal temperature, tone, texture, turgor, no induration, No subcutaneous nodules, No rash, lesions, No ulcers Extremities: No digital cyanosis, No clubbing, Pedal pulses intact and symmetrical, Radial pulses intact and symmetrical, No calf tenderness Psychiatric: Alert and oriented to person, place and time, appropriate affect, intact judgement Neuro: Speech stutter, right-sided weakness. - Labs CBC & Chem 7: 12/25/18 06:10 12/25/18 06:10 Labs: Abnormal Lab Results - Last 24 Hours (Table) 12/27/18 12/27/18 12/28/18 Range/Units 16:53 19:56 06:18 POC Glucose (mg/dL) 108 H 145 H 154 H (75-99) mg/dL 12/28/18 Range/Units 12:05 POC Glucose (mg/dL) 145 H (75-99) mg/dL Assessment and Plan Plan: R sided weakness w/ L facial droop in setting of lethargy, concerns for acute CVA -Neurology recommendations appreciated -C/w Aspirin and Statin -brain MRI negative for any acute ischemia, patchy bilateral white matter changes which are nonspecific and can be seen with demyelination -Fall, aspiration, seizure precautions -Echocardiogram showing preserved LVEF 55-60% with no significant valvular abnormalities -PT/OT consult, speech therapy saw patient on Saturday, need follow-up with speech treatment -A1C ok, lipid panel noted Hx of A-fib -It appears that patient only had a single episode of lone A-fib several years ago -Upon chart review and as per the patient, he hasn't been on anticoagulation -Neurology recommending a loop recorder upon discharge to detect paroxysmal A. fib -No anticoagulation therapy for now according to neurology Suicidal ideation -C/w sitter for now -Will require transfer to [facility] following medicine discharge -Patient certified today for mental health admission HTN -C/w home meds for now Methamphetamine abuse Advised against use HLD -C/w Lipitor DVT prophylaxis -IPCDs Discussed with: Patient and family, mother and sister at the bedside. Questions answered. Anticipated discharge date: 12/29/[address]: [facility] A total of 35 minutes was spent on the care of this complex patient more than 50% of the time was spent in counseling and care coordination.
[2018-12-28 16:51] LABS: Glucose,Whole Blood 94 mg/dL (75-99)
--- NOTE | 2018-12-28 17:46 | P.CN ---
Psychiatric Consult - . Consult date: 12/28/18 Consult:: Chief complaint Depression and suicidal ideations History of presenting illness Within an hour of his admission to [facility] patient was transferred to Medical floor for possible CVA. He was medially cleared and is currently waiting to be tra nsferred back to [facility]. Patient reports feeling depressed and suicidal with plan to hang himself. He reports low energy levels and no motivation. He reports getting angry, frustrated and irritable easily. He reports mood swings and racing thoughts. He complains of paranoid and persecutory delusions. He says he is stressed about life in general. He says he has no choice but to get admitted to [facility] and claims his wants to petition him. He says even though his has a PPO order against him they dont follow it and claims they still live together. Per nursing staff his visits him on the floor. Patient stutters and gets frustrated to talk about his current problems. He says him and his has ups and downs but unable to explain the details. He claims to have stopped taking his prescribed medications lamictal six weeks ago as he doesnt like the way it makes him feel. He reports to have missed his out patient psychiatric appointment following his discharge from [facility] in october 2018. Past psychiatric history Multiple psychiatric hospitalizations since 2013. Most of his hospitalizations were due to depression and suicidal attempts of overdosing . He is not complaint with out patient treatments. Per medical record he has been diagnosed With bipolar disorder, anxiety and depression and has received treatment with various medications such as Zoloft, paxil, Prozac, lithium, lamictal and seroquel. Substance use history Reports use of marijuana since his teen age years. He reports smoking marijuana daily, unknown quantity. Reports to have been to rehab programs. Denies use of other illicit drugs. Medical history Atrial fibrillation, diabetes (diet controlled), GERD, hyperlipidemia, hypertension, sleep apnea, prostate cancer/lymph node cancer, chronic back pain. Allergies Sulfa drugs Social history Born in [place]. Raised by mother. Denies history of abuse. to his current for six years. 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 Currently unemployed and is on disability due to chronic back pain. 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 Poor eye contact. He stutters a lot, gets frustrated due to his inability to express himself. His mood is reported as sad and affect constricted. His thought process is linear and goal directed. He denies current auditory or visual hallucinations. He has paranoid and persecutory delusions. He reports suicidal ideations with plan to hang self. He denies homicidal ideations. He is alert and oriented x 4. His insight and judgment are poor. Diagnosis Bipolar disorder most recent depressed Cannabis abuse Plan 53-year-old male admitted to [facility] for suicidal ideations but was immediately transferred medical floor for possible CVA. He is medically cleared and is waiting to be transferred back to [facility]. He wants his Gregoria to be contacted at [phone] to find out what mediations have worked well for him. Patient's says that patient has a pattern of taking medications just only for two to three days and stops them. She says patient has done well on either abilify or celexa when he took those at least for two months. She also thinks he might do well on invega injections. She says that patient might need intermediate designer care plan for him to be stabilized on medications. She is planning to get the PPO order lifted now that he is under supervised care. Patient to be started on medications after his transfer to [facility] and after signs the consent for medications 12/28/18 17:31 12/28/18 17:41
[2018-12-28] MEDS: ATORVASTATIN 80 MG TAB PO SCH (20:27)
[2018-12-28 20:48] LABS: Glucose,Whole Blood 126 mg/dL (75-99)
[2018-12-28] MEDS ORDERED: ZOLPIDEM 5 MG TAB PO PRN (21:27)
[2018-12-29] MEDS: MELATONIN 3 MG TABLET PO SCH ×2 (00:58→20:27)
[2018-12-29] MEDS: INSULIN ASPART (NovoLOG) 100 UNIT/ML VIAL SQ SCH ×4 (06:19→20:27)
[2018-12-29 06:20] LABS: Glucose,Whole Blood 110 mg/dL (75-99)
[2018-12-29] MEDS: lamoTRIgine 25 MG TAB PO SCH ×2 (09:02→20:27)
[2018-12-29] MEDS: ASPIRIN 325 MG TAB PO SCH (09:02)
[2018-12-29] MEDS: METOPROLOL TARTRATE 25 MG TAB PO SCH (09:02)
[2018-12-29] MEDS: amLODIPine 10 MG TAB PO SCH (09:02)
[2018-12-29 12:03] LABS: Glucose,Whole Blood 118 mg/dL (75-99)
[2018-12-29] MEDS ORDERED: SENNOSIDES-DOCUSATE SODIUM 1 EACH TAB PO STA (13:12)
[2018-12-29] MEDS ORDERED: POLYETHYLENE GLYCOL 3350 17 GM POWD.PACK PO SCH (13:15)
[2018-12-29] MEDS: hydrOXYzine PAMOATE 25 MG CAP PO PRN ×2 (13:22→21:09)
[2018-12-29 14:22] VITALS: BP 163/99; PULSE 68; RESP 16; TEMP 98
--- NOTE | 2018-12-29 14:58 | P.PN ---
Subjective Progress Note Date: 12/29/18 Principal diagnosis: CVA Patient was seen and examined. No acute events overnight. Patient continues to report right-sided weakness along with decreased sensation. He denies any chest pain, shortness of breath or palpitations. No nausea or vomiting. No fever or chills. Objective - Vital Signs Vital signs: Vital Signs Temp 98.0 F 12/29/18 14:07 Pulse 68 12/29/18 14:07 Resp 16 12/29/18 14:07 BP 163/99 12/29/18 14:07 Pulse Ox 98 12/29/18 14:07 Intake & Output 12/28/18 12/29/18 12/29/18 18:59 06:59 18:59 Intake Total 1284 240 480 Output Total 800 Balance 1284 -560 480 Intake: Oral 1284 240 480 Output: Urine 800 Other: Voiding Method Urinal Urinal Urinal # Voids 1 2 - Exam General: [non toxic], [no distress], [appears at stated age] Derm: [warm], [dry] Head: [atraumatic], [normocephalic], [symmetric] Eyes: [EOMI], [no lid lag], [anicteric sclera] Mouth: [no lip lesion], [mucus membranes moist] Cardiovascular: [S1S2 reg], [no murmur], [positive DP pulse bilateral], Lungs: [CTA bilateral], [no rhonchi, no rales] , [no accessory muscle use] Abdominal: [soft], [epigastric tenderness], [no guarding], [no appreciable organomegaly] Ext: [no gross muscle atrophy], [no edema], [no contractures] Neuro: [ CN II-XI grossly intact], [4 out of 5 strength in the right upper and lower extremity with decreased sensation to touch, 5 out of 5 on the left side], [stuttered speech] Psych: [Alert], [oriented], [appropriate affect] - Labs CBC & Chem 7: 12/25/18 06:10 12/25/18 06:10 Labs: Abnormal Lab Results - Last 24 Hours (Table) 12/28/18 12/29/18 12/29/18 Range/Units 20:35 06:18 12:01 POC Glucose (mg/dL) 126 H 110 H 118 H (75-99) mg/dL Assessment and Plan Assessment: Assessment and plan Right-sided weakness with left facial droop, possible TIA History of atrial fibrillation Suicidal ideation Methamphetamine use Chronic conditions: Hyperlipidemia, hypertension MRI brain shows no acute ischemia. CTA head and neck within normal limits. CT brain within normal limits. Echocardiogram shows EF 55-60% with moderate concentric LVH. Plans: Neurology consulted, cleared patient for transfer to psych. Continue aspirin and Lipitor. Follow neurology recommendations. Neurochecks. Follow PT and OT recommendations. Quit methamphetamines. Needs loop recorder on discharge. Plans: Continue beta hina. No anticoagulation according to neurology. Plans: Continue sitter. Follow psychiatry recommendations. Plans: Quit. [Patient cleared for discharge to mental health. Likely DC with bed availability.]
[2018-12-29 17:09] LABS: Glucose,Whole Blood 103 mg/dL (75-99)
[2018-12-29] MEDS: ATORVASTATIN 80 MG TAB PO SCH (20:27)
[2018-12-29 20:43] LABS: Glucose,Whole Blood 103 mg/dL (75-99)
[2018-12-30 07:34] LABS: Glucose,Whole Blood 88 mg/dL (75-99)
--- NOTE | 2019-01-02 13:15 | CDI ---
Documentation Clarification Form Date: 01/02/19 From: Andreea Metcalf Phone: If questions call Laura Scott @ [phone], Hours-8:30 am & 5 pm M- Kayla Admit Date: 12/24/2018 7:13:00 PM Patient Name: Tony Lam Visit Number: [id number] Discharge Date: 12/29/2018 9:16:00 PM ATTENTION: The Clinical Documentation Specialists (CDI) and [facility] Coding Staff appreciate your assistance in clarifying documentation. Please respond to the clarification below the line at the bottom and electronically sign. The CDI & [facility] Coding staff will review the response and follow-up if needed. Please note: Queries are made part of the Legal Health Record. If you have any questions, please contact the author of this message via ITS. Dr. Jacqueline Rollins Conflicting documentation has been found in the medical record: The diagnosis CVA was documented in the H&P, and PNs, TIA was documented in 12/29 PN. History/Risk Factors: Hx a fib, HTN, bipolar w current depression Clinical Indicators: L facial droop, speech intelligible but does not respond appropriately to questions, right upper and lower extremity weakness, left eye miosis Last PN documents continuw right sided weakness w decreased sensation with left facial droop Treatment: MRI brain no stroke In your opinion, what is the most clinically appropriate diagnosis for this patient? CVA TIA Other explanation of clinical findings Unable to determine (no explanation for clinical findings) TIA MTDD
== END 2018-12-29 21:16 | DRG 69 ==
LOC: 3SCARD 19:13 → 4MS4W 12-29 09:21
PROVIDERS: ADMIT Internal Medicine; ATTEND Internal Medicine
DX: G45.9 Transient cerebral ischemic attack, unspecified (principal); R45.851 Suicidal ideations; F31.30 Bipolar disorder, current episode depressed, mild or moderate severity, unspecified; R29.810 Facial weakness; H57.03 Miosis; I10 Essential (primary) hypertension; F41.9 Anxiety disorder, unspecified; F90.9 Attention-deficit hyperactivity disorder, unspecified type; E78.5 Hyperlipidemia, unspecified; G89.29 Other chronic pain; M54.9 Dorsalgia, unspecified; K21.9 Gastro-esophageal reflux disease without esophagitis; G47.30 Sleep apnea, unspecified; E11.9 Type 2 diabetes mellitus without complications; T42.6X6A Underdosing of other antiepileptic and sedative-hypnotic drugs, initial encounter; Z91.128 Patient's intentional underdosing of medication regimen for other reason; F15.10 Other stimulant abuse, uncomplicated; F80.81 Childhood onset fluency disorder; R94.4 Abnormal results of kidney function studies; Z79.899 Other long term (current) drug therapy; Z85.46 Personal history of malignant neoplasm of prostate; Z90.79 Acquired absence of other genital organ(s); Z98.890 Other specified postprocedural states; Z90.49 Acquired absence of other specified parts of digestive tract; Z87.891 Personal history of nicotine dependence; Z86.79 Personal history of other diseases of the circulatory system; Z88.2 Allergy status to sulfonamides; Y63.6 Underdosing and nonadministration of necessary drug, medicament or biological substance; Y92.009 Unspecified place in unspecified non-institutional (private) residence as the place of occurrence of the external cause; Z82.49 Family history of ischemic heart disease and other diseases of the circulatory system
CPT/HCPCS: 70551; 80053; 80061; 80306; 83036; 84443; 85025; 93306

== ENCOUNTER 2018-12-29 20:48 | Inpatient (IN) | payer MEDICARE ==
[2018-12-29] MEDS ORDERED: ZIPRASIDONE 20 MG VIAL IM PRN (21:46)
[2018-12-29] MEDS ORDERED: MAGNESIUM HYDROXIDE 2,400 MG/10 ML CUP PO PRN (21:46)
[2018-12-29] MEDS ORDERED: MAG HYDROX/AL HYDROX/SIMETH 30 ML CUP PO PRN (21:46)
[2018-12-29] MEDS ORDERED: LORazepam 2 MG/ML INJ IM PRN (21:50)
[2018-12-30 07:26] LABS: Glucose,Whole Blood 121 mg/dL (75-99)
[2018-12-30] MEDS: INSULIN ASPART (NovoLOG) 100 UNIT/ML VIAL SQ SCH ×4 (07:32→20:29)
[2018-12-30] MEDS: METOPROLOL TARTRATE 25 MG TAB PO SCH (07:32)
[2018-12-30] MEDS: ASPIRIN 81 MG PO SCH (07:32)
[2018-12-30] MEDS: amLODIPine 10 MG TAB PO SCH (07:32)
[2018-12-30] MEDS: LORazepam 1 MG TAB PO PRN ×2 (08:32→18:27)
[2018-12-30] MEDS ORDERED: lamoTRIgine 25 MG TAB PO SCH (09:00)
[2018-12-30] MEDS: ARIPiprazole 5 MG TAB PO SCH (10:34)
[2018-12-30] MEDS: CITALOPRAM HYDROBROMIDE 20 MG TAB PO SCH (10:34)
--- NOTE | 2018-12-30 10:54 | P.HP ---
Psychiatric H&P - . History & Physical: Allergies Allergy/AdvReac Type Severity Reaction Status Date / Time Sulfa (Sulfonamide Allergy Unknown Anaphylaxis Verified 12/29/18 21:56 Antibiotics) Vital Signs Temp 97.9 F 12/30/18 07:03 Pulse 65 12/30/18 07:38 Resp 18 12/30/18 07:38 BP 150/93 12/30/18 07:38 Pulse Ox 97 12/29/18 21:40 Intake & Output 12/29/18 12/30/18 12/30/18 18:59 06:59 18:59 Weight 97.8 kg Laboratory Last Values POC Glucose (mg/dL) 121 mg/dL (75-99) H 12/30/18 07:24 POC Glu Senior Portfolio Manager ID Antonietta Pineda 12/30/18 07:24 12/30/18 10:15 IDENTIFYING DATA: This patient is a 53-year-old male who was admitted to the mental health unit from the general medical floor. HPI: The patient was admitted originally to the mental health unit for acute suicidal ideation. Apparently there were concerns that he had suffered a stroke. He was transferred to the medical floor and was seen by neurology. He underwent an MRI of his brain. There appeared to be no acute evidence of stroke he was medically cleared and transferred back to this unit. The patient states that he has been feeling depressed and overwhelmed he had suicidal thoughts again. He states his sent him a text telling him they were better off without him. Interestingly during this interview he demonstrated stuttering behavior which was not present with his last admission. He states that that started recently because he has been stressed and overwhelmed. He carries a diagnosis of bipolar depression. He states that he did continue the Lamictal but did not follow up with outpatient mental health care as directed. He describes having low energy and low motivation. Previously he has described episodes that appeared to be hypomanic or manic in nature. He is endorsing no auditory or visual hallucinations he is endorsing no specific delusions. He endorses no thoughts of harming others. He indicates that he feels safe in the hospital in terms of suicidal ideation. He indicates he needs to stay here a w hile. PAST PSYCHIATRIC HISTORY: This is the patient's seventh admission since 2013. Most recently he was here in October. He has not been following up with outpatient mental health services. We did try to stabilize his mood disorder with Lamictal however he did not follow-up and the dose was not titrated. Dr. Arizmendi saw the patient as a psychiatric consult over the weekend. She did contact the patient's spouse who indicated the patient had previously been successful with Abilify and Celexa. It is unclear if he has been on and they assist on in the past. He has been on other psychotropics in the past including several antidepressants. He has had suicide attempts in the past via attempted hanging. Additionally he has had 3 overdose attempts. PMH: Atrial fibrillation, history of cancer, diabetes, GERD, hypertension, chronic back pain ALLERGIES: Sulfa MEDICATIONS: Refer to [facility] CHEMICAL DEPENDENCY HISTORY: No reported use of alcohol. He does have a history of using marijuana. The urine drug screen was positive for amphetamines methamphetamine we will discuss that further FAMILY PSYCHIATRIC HISTORY: Uncle committed suicide FAMILY CHEMICAL DEPENDENCY HISTORY: Unknown SOCIAL HISTORY: The patient is 53 years old he is he has 6 children. He graduated high school with some college credits. 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 He is on a disability income. Abuse history none legal history unknown. MENTAL STATUS EXAM: The patient is alert he is lying in bed he does not wish to get up and speak in an interview room. We spoke in his room. The light was on and he kept his eyes covered with his arm. He has a disheveled appearance he has long hair he has numerous tattoos on his upper extremities that are visible. He indicates his mood is depressed and anxious. He is demonstrating a stuttering type behavior that was not present with his last admission. He demonstrates shaking of his right upper extremity during the duration of our interaction. The shaking behavior was not noticed when I entered the room prior to addressing him. He presented with suicidal ideation with a plan of hanging himself. He reports no homicidal ideation. He endorses no auditory or visual hallucinations or specific delusions. There is no observed evidence of psychosis. Thought process is linear he demonstrates no tangential thinking loose associations or flight of ideas. He does not appear hypomanic or manic at this time. Insight and judgment limited. He is oriented to person place and date. He is able to name the days of the week backwards. STRENGTHS/WEAKNESSES: Strengths: Housing, income weaknesses: Need for coping skill development INTELLECTUAL FUNCTIONING: Average IMPRESSIONS: [] 1. Bipolar depression, severe without psychosis, cannabis use disorder PLAN: The patient has been admitted to the mental health unit voluntarily. We reviewed his presenting symptoms and treatment options. We decided we would discontinue the Lamictal and initiate Celexa 20 mg daily and Abilify 5 mg daily. We believe that these are medications that he has done well with in the past when he has been compliant. He will be seen by internal medicine for routine history and physical exam. Social work will meet with the patient to complete a psychosocial assessment and begin discharge planning. We will involve his in treatment and discharge planning as he will allow. We will monitor him for safety and encourage full participation in the milieu. We will discuss the results of his urine drug screen further. 12/30/18 10:48
[2018-12-30 12:35] LABS: Glucose,Whole Blood 97 mg/dL (75-99)
--- NOTE | 2018-12-30 15:51 | P.MDCNMH ---
History of Present Illness H&P Date: 12/30/18 Chief Complaint: Medical management 53-year-old male with PMH of depression, hypertension, dyslipidemia, diabetes mellitus, prostate cancer presents to mental health after being petitioned by police for violating a restraining order. While in the mental health unit, patient was noted to have continued and worsening stuttering along with right-sided weakness and left-sided facial droop. Code stroke was activated and patient was transferred to the telemetry floor. Neurology was consulted at that time and patient underwent CT of the brain which was within normal limits. MRI of the brain showed no acute ischemia. CT of the head and neck was within normal limits. Echocardiogram showed EF 55-60% with moderate concentric LVH. Neurology was consulted and recommended aspirin and Lipitor. Patient was cleared for discharge back to the mental health unit. Patient was seen and examined. No acute events overnight. Patient reports continuation of his right-sided weakness and decreased sensation. Patient reports a history of constipation, last bowel movement was today, small. He denies any headache, lower extremities edema, nausea or vomiting, fever or chills, cough, chest pain, shortness of breath, changes in urination, changes in appetite or weight. He denies any dizziness. Review of Systems Pertinent positives and negatives as discussed in HPI, a complete review of systems was performed and all other systems are negative. Past Medical History Past Medical History: Atrial Fibrillation, Cancer, Diabetes Mellitus, GERD/Reflux, Hyperlipidemia, Hypertension, Musculoskeletal Disorder, Sleep Apnea/CPAP/BIPAP Additional Past Medical History / Comment(s): PROSTATE CANCER, DIABETES -DIET CONTROLLED, CHRONIC BACK PAIN WITH NERVE DAMAGE LEFT FOOT, STATES HX OF 1 EPISODE OF A-FIB, STATES HIGH BLOODPRESSURE-NO MEDS, CONSTIPATION. 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 History of Any Multi-Drug Resistant Organisms: None Reported Past Surgical History: Appendectomy, Back Surgery, Cholecystectomy, Tonsillectomy Additional Past Surgical History / Comment(s): BACK SURGERY x2, prostate biopsy . 06-16-14 PROSTATECTOMY Past Anesthesia/Blood Transfusion Reactions: No Reported Reaction, Previous Problems w/ Anesthesia Additional Past Anesthesia/Blood Transfusion Reaction / Comment(s): STATES DIFFICULT INTUBATION. Past Psychological History: ADD/ADHD, Anxiety, Depression Additional Psychological History / Comment(s): PTS STATED HE NEEDS TO BE REMINDED TO EAT. Smoking Status: Former smoker Past Alcohol Use History: None Reported Additional Past Alcohol Use History / Comment(s): patient smoked 2-1/2 packs of cigarettes per day for 5-6 years and quit in 1989. Past Drug Use History: Marijuana Additional Drug Use History / Comment(s): DAILY USE OF MARIJUANA FOR BACK PAIN. - Past Family History Mother Family Medical History: No Reported History Father Family Medical History: Myocardial Infarction (ND) Brother(s) Family Medical History: No Reported History Sister(s) Family Medical History: No Reported History Daughter(s) Family Medical History: No Reported History Medications and Allergies Home Medications Medication Instructions Recorded Confirmed Type Metoprolol Tartrate [Lopressor] 25 mg PO DAILY #30 tab 11/13/18 12/29/18 Rx amLODIPine [Norvasc] 10 mg PO DAILY #30 tab 11/13/18 12/29/18 Rx hydrOXYzine PAMOATE [Vistaril] 25 mg PO Q8HR PRN #30 cap 11/13/18 12/29/18 Rx lamoTRIgine [LaMICtal] 25 mg PO BID #60 tab 11/13/18 12/29/18 Rx Aspirin [Adult Low Dose Aspirin EC] 81 mg PO DAILY #30 tablet.dr 12/27/18 12/29/18 Rx Atorvastatin [Lipitor] 80 mg PO HS #30 tab 12/27/18 12/29/18 Rx Allergies Allergy/AdvReac Type Severity Reaction Status Date / Time Sulfa (Sulfonamide Allergy Unknown Anaphylaxis Verified 12/29/18 21:56 Antibiotics) Physical Exam Vitals: Vital Signs Temp Pulse Resp BP Pulse Ox 12/30/18 07:38 65 18 150/93 12/30/18 07:03 97.9 F 65 18 142/87 12/29/18 21:40 97.1 F L 68 16 141/95 97 General: [non toxic], [stuttered speech], [appears at stated age] Derm: [warm], [dry] Head: [atraumatic], [normocephalic], [symmetric] Eyes: [EOMI], [no lid lag], [anicteric sclera] Mouth: [no lip lesion], [mucus membranes moist] Cardiovascular: [S1S2 reg], [no murmur], [positive DP pulse bilateral], Lungs: [CTA bilateral], [no rhonchi, no rales] , [no accessory muscle use] Abdominal: [soft], [ nontender to palpation], [no guarding], [no appreciable organomegaly] Ext: [no gross muscle atrophy], [no edema], [no contractures] Neuro: [ CN II-XI grossly intact], [4 out of 5 strength in the right upper and right lower extremity with decreased sensation to touch, 5 out of 5 otherwise throughout] Psych: [Alert], [oriented], [appropriate affect] Cranial Nerve Examination - Cranial Nerves Cranial Nerve II- Optic: Intact Cranial Nerve III- Oculomotor: Intact Cranial Nerve IV- Trochlear: Intact Cranial Nerve V- Trigeminal: Intact Cranial Nerve - Abducens: Intact Cranial Nerve VII- Facial: Intact Cranial Nerve VIII- Auditory: Intact Cranial Nerve IX- Glossopharyngeal: Intact Cranial Nerve X- Vagus: Intact Cranial Nerve XI- Accessory: Intact Cranial Nerve XII- Hypoglossal: Intact Results Labs: Abnormal Lab Results - Last 24 Hours (Table) 12/30/18 Range/Units 07:24 POC Glucose (mg/dL) 121 H (75-99) mg/dL Assessment and Plan Assessment: Assessment and plan Right-sided weakness with left facial droop, possible TIA History of atrial fibrillation Suicidal ideation Methamphetamine use Chronic conditions: Hyperlipidemia, hypertension MRI brain shows no acute ischemia. CTA head and neck within normal limits. CT brain within normal limits. Echocardiogram shows EF 55-60% with moderate concentric LVH. Plans: Continue aspirin and Lipitor. Follow PT and OT recommendations. Quit methamphetamines. Needs loop recorder as per neurology on discharge. Plans: Continue beta hina. No anticoagulation according to neurology. Plans: Management as per psychiatry. Plans: Quit. Thank you for this consult. Please call with any additional questions or concer ns.
[2018-12-30 17:32] LABS: Glucose,Whole Blood 111 mg/dL (75-99)
[2018-12-30 20:15] LABS: Glucose,Whole Blood 150 mg/dL (75-99)
[2018-12-30] MEDS: ATORVASTATIN 80 MG TAB PO SCH (20:31)
[2018-12-31 08:07] LABS: Glucose,Whole Blood 97 mg/dL (75-99)
[2018-12-31] MEDS: INSULIN ASPART (NovoLOG) 100 UNIT/ML VIAL SQ SCH ×4 (08:27→20:14)
[2018-12-31] MEDS: ASPIRIN 81 MG PO SCH (08:29)
[2018-12-31] MEDS: METOPROLOL TARTRATE 25 MG TAB PO SCH (08:29)
[2018-12-31] MEDS: ARIPiprazole 5 MG TAB PO SCH (08:29)
[2018-12-31] MEDS: amLODIPine 10 MG TAB PO SCH (08:29)
[2018-12-31] MEDS: CITALOPRAM HYDROBROMIDE 20 MG TAB PO SCH (08:29)
--- NOTE | 2018-12-31 09:15 | P.PN ---
Progress Note - Text Interval history: The patient is found in his room he follows me to an interview room. He states that he feels tired he has been sleeping. He doesn't appear he attended any groups yesterday. He states he was planning on attending them tomorrow but maybe he'll try some today. He has not yet showered. He has been cooperative with medication. He states he is using the wheelchair because staff doesn't want him to fall. He reports having telephone contact with his . He has no questions or concerns regarding his treatment. Mental status exam: The patient is alert but tired appearing he is mobile with a wheelchair. He is dressed in pajama bottoms and a T-shirt. Upon entering her room there is a foul body odor. Hygiene grooming appeared to be poor. He has little eye contact today and frequently looks down during our interaction. The tremor of his right upper extremity is absent. He continues to demonstrate the stuttering behavior. Speech is fluent nonspontaneous but he does provide answers to questions. He is reporting feeling safe in the hospital in terms of suicidal thoughts. He reports no homicidal ideation. He endorses no auditory or visual hallucinations or any specific delusions. There is no observed evidence of psychosis hypomania or letty. Thought process for the most part is linear. He demonstrates no verbal or physical aggressiveness. He demonstrates no abnormal involuntary movements at this time. Insight and judgment limited. Plan: The patient will be continued on the Celexa and Abilify as written. We will monitor him for safety and encourage participation in the milieu. He is encouraged to shower today. He indicates that he is eating appropriately. We will discuss his progress during treatment team meeting. Vital signs reviewed. The history and physical from internal medicine was reviewed. He requires continued psychiatric hospitalization due to his current level of dysfunction.
[2018-12-31 12:44] LABS: Glucose,Whole Blood 125 mg/dL (75-99)
[2018-12-31 17:53] LABS: Glucose,Whole Blood 103 mg/dL (75-99)
[2018-12-31 19:58] LABS: Glucose,Whole Blood 161 mg/dL (75-99)
[2018-12-31] MEDS: ATORVASTATIN 80 MG TAB PO SCH (22:03)
[2019-01-01 08:01] LABS: Glucose,Whole Blood 93 mg/dL (75-99)
[2019-01-01] MEDS: ARIPiprazole 5 MG TAB PO SCH (08:28)
[2019-01-01] MEDS: CITALOPRAM HYDROBROMIDE 20 MG TAB PO SCH (08:28)
[2019-01-01] MEDS: INSULIN ASPART (NovoLOG) 100 UNIT/ML VIAL SQ SCH ×4 (08:28→21:04)
[2019-01-01] MEDS: amLODIPine 10 MG TAB PO SCH (08:28)
[2019-01-01] MEDS: METOPROLOL TARTRATE 25 MG TAB PO SCH (08:28)
[2019-01-01] MEDS: ASPIRIN 81 MG PO SCH (08:28)
--- NOTE | 2019-01-01 11:23 | P.PN ---
Progress Note - Text Interval history: The patient is in his room. He has not attended any groups this morning but did go down to breakfast. He did shower yesterday. He has no questions or concerns regarding his medication. He states he continues to feel tired but feels better that he is getting more rest. He did have a visit from his spouse last evening but provides no specifics on the visit. He has no questions or concerns today. Mental status exam: The patient is an overweight male he seated upright in bed he has no eye contact. Hygiene is improved grooming is impaired. He is dressed in his own clothing. Speech is not spontaneous briefly provides answers to questions. He continues to demonstrate some stuttering behavior but less frequently than the previous days. There is no tremor of his upper extremities noted either at rest or with intention. He demonstrates no verbal or physical aggressiveness. He maintains a very bland affect with little reactivity. He reports feeling safe in the hospital in terms of his presenting suicidal ideation. He reports no homicidal ideation. He endorses no symptoms of psychosis. Insight and judgment limited. Plan: The patient will continue on his current psychotropic medications. He is encouraged to participate in the milieu. We will continue to monitor him for safety. We will explore transitioning him to a walker from the wheelchair and he is agreeable. He requires continued psychiatric hospitalization. Vital signs reviewed.
[2019-01-01 12:48] LABS: Glucose,Whole Blood 99 mg/dL (75-99)
[2019-01-01 18:35] LABS: Glucose,Whole Blood 89 mg/dL (75-99)
[2019-01-01 20:07] LABS: Glucose,Whole Blood 166 mg/dL (75-99)
[2019-01-01] MEDS: LORazepam 1 MG TAB PO PRN (21:05)
[2019-01-01] MEDS: ATORVASTATIN 80 MG TAB PO SCH (21:07)
[2019-01-02 08:10] LABS: Glucose,Whole Blood 90 mg/dL (75-99)
[2019-01-02] MEDS: INSULIN ASPART (NovoLOG) 100 UNIT/ML VIAL SQ SCH ×4 (08:31→20:41)
[2019-01-02] MEDS: ASPIRIN 81 MG PO SCH (09:05)
[2019-01-02] MEDS: ARIPiprazole 5 MG TAB PO SCH (09:05)
[2019-01-02] MEDS: METOPROLOL TARTRATE 25 MG TAB PO SCH (09:05)
[2019-01-02] MEDS: amLODIPine 10 MG TAB PO SCH (09:05)
[2019-01-02] MEDS: CITALOPRAM HYDROBROMIDE 20 MG TAB PO SCH (09:05)
--- NOTE | 2019-01-02 11:16 | P.PN ---
Progress Note - Text Interval history: The patient is found in the hallway waiting at the medication window. He follows me to an interview room. He is ambulating with use of a walker and feels safe doing that. He does not feel that he needs the wheelchair. He indicates that he is sleeping at night he indicates he is eating meals. He did not shower yesterday but will today. He continues to have phone contact with his . He does not anticipate a visit over the weekend due to her continued respiratory illness. He has no questions or concerns regarding his medication. He indicates feeling safe in the hospital. He continues to have a depressed mood and anxiety. He continues to report some hopelessness thinking. Mental status exam: The patient is alert he has a disheveled appearance hygiene is impaired today. He is ambulating appropriately with a walker. Eye contact is mildly improved. He often looks down during the conversation. In terms of suicidal thoughts he states he feels safe here in the hospital. He reports no homicidal ideation intent or plan. He reports no auditory or visual hallucinations or specific delusions. There is no observed evidence of psychosis. Speech is mildly more spontaneous. He continues to demonstrate a stutter with speech. He demonstrates no verbal or physical aggressiveness. He demonstrates no involuntary repetitive movements. Insight and judgment limited. Plan: The patient will continue on his current medication. We will monitor him for safety and encourage full participation in the milieu. He requires continued psychiatric hospitalization due to his presenting symptoms of depression and suicidal ideation. Vital signs reviewed. Blood pressure has been fluctuating, blood sugar stable.
[2019-01-02 12:35] LABS: Glucose,Whole Blood 88 mg/dL (75-99)
[2019-01-02 17:39] LABS: Glucose,Whole Blood 96 mg/dL (75-99)
[2019-01-02 20:11] LABS: Glucose,Whole Blood 138 mg/dL (75-99)
[2019-01-02] MEDS: ATORVASTATIN 80 MG TAB PO SCH (20:43)
[2019-01-02] MEDS: hydrOXYzine PAMOATE 25 MG CAP PO PRN (20:43)
[2019-01-03 07:48] LABS: Glucose,Whole Blood 88 mg/dL (75-99)
[2019-01-03] MEDS: INSULIN ASPART (NovoLOG) 100 UNIT/ML VIAL SQ SCH ×4 (07:54→20:37)
[2019-01-03] MEDS: ASPIRIN 81 MG PO SCH (08:52)
[2019-01-03] MEDS: CITALOPRAM HYDROBROMIDE 20 MG TAB PO SCH (08:52)
[2019-01-03] MEDS: ARIPiprazole 5 MG TAB PO SCH (08:52)
[2019-01-03] MEDS: amLODIPine 10 MG TAB PO SCH (08:53)
[2019-01-03] MEDS: METOPROLOL TARTRATE 25 MG TAB PO SCH (08:53)
[2019-01-03] MEDS: hydrOXYzine PAMOATE 25 MG CAP PO PRN ×2 (08:54→20:35)
--- NOTE | 2019-01-03 10:30 | P.PN ---
Progress Note - Text Progress Note Date: 01/03/19 Interval history: Patient was seen today in his room for follow-up. Patient appeared to be stuttering and having difficulties expressing his thoughts. He stated that he did not have a good rest last night as he was interrupted by other patients. He states that he is trying to maintain optimism and taking part in occupational therapy. He states that his mood is gradually improving on the current medications. Patient stated that he is trying to go to more groups and participate. At this time patient denies any suicidal or homicidal ideations intent or plan. Denies any Auditory or visual hallucinations. Patient denies any side effects from the medications and has been compliant with meds. Mental status exam: General Appearance: Patient appears to be older than stated age is alert, directable and cooperative. Patient has poor hygiene and poor grooming appears to have a depressed affect. Behavior: No agitated behavior. Patient is calm and directable Speech: Patient's has a stuttering speech Mood/Affect: Mood is improving mildly, affect is congruent and constricted. Suicidality/Homicidality: Patient denies having any suicidal or homicidal ideation intent or plan. Perceptions: Patient denies any auditory or visual hallucinations. Though content/process: There is no evidence of any delusional thought content and thought process is linear and goal-directed. Memory and concentration: AOX3, grossly intact for the purposes of this session Judgment and insight: improving Assessment/Plan: Continue with current diagnosis. Patient continues to meet criteria for inpatient psychiatric admission for symptom stabilization and safety.Patient will be maintained on current psychotropic medication regimen. Monitor for medication compliance and for any psychotropic medication side effects. Will continue to monitor ongoing response to treatment.
[2019-01-03 12:33] LABS: Glucose,Whole Blood 92 mg/dL (75-99)
[2019-01-03 17:29] LABS: Glucose,Whole Blood 155 mg/dL (75-99)
[2019-01-03 20:10] LABS: Glucose,Whole Blood 114 mg/dL (75-99)
[2019-01-03] MEDS: ATORVASTATIN 80 MG TAB PO SCH (20:35)
[2019-01-04] MEDS: INSULIN ASPART (NovoLOG) 100 UNIT/ML VIAL SQ SCH ×4 (08:09→21:22)
[2019-01-04] MEDS: ASPIRIN 81 MG PO SCH (08:10)
[2019-01-04] MEDS: ARIPiprazole 5 MG TAB PO SCH (08:10)
[2019-01-04] MEDS: METOPROLOL TARTRATE 25 MG TAB PO SCH (08:10)
[2019-01-04] MEDS: CITALOPRAM HYDROBROMIDE 20 MG TAB PO SCH (08:10)
[2019-01-04] MEDS: amLODIPine 10 MG TAB PO SCH (08:10)
[2019-01-04 08:15] LABS: Glucose,Whole Blood 85 mg/dL (75-99)
--- NOTE | 2019-01-04 10:43 | P.PN ---
Progress Note - Text Progress Note Date: 01/04/19 Interval history: Patient was seen today in his room for follow-up. Patient offered no overnight complaints. Patient appeared to be stuttering and having difficulties expressing his thoughts once again. He stated that he slept much better last night. He states that he is using the walker and attempting to move about the unit doing occupational therapy. Patient also states that his mood is gradually improving on the current medications and denies any problems with them. At this time patient denies any suicidal or homicidal ideations intent or plan. Denies any Auditory or visual hallucinations. Patient denies any side effects from the medications and has been compliant with meds. Mental status exam: General Appearance: Patient appears to be older than stated age is alert, directable and cooperative. Patient has poor hygiene and poor grooming Behavior: No agitated behavior. Patient is calm and directable Speech: Patient's has a stuttering speech Mood/Affect: Mood is improving mildly, affect is congruent and constricted. Suicidality/Homicidality: Patient denies having any suicidal or homicidal ideation intent or plan. Perceptions: Patient denies any auditory or visual hallucinations. Though content/process: There is no evidence of any delusional thought content and thought process is linear and goal-directed. Memory and concentration: AOX3, grossly intact for the purposes of this session Judgment and insight: improving mildly Assessment/Plan: Continue with current diagnosis. Patient continues to meet criteria for inpatient psychiatric admission for symptom stabilization and safety.Patient will be maintained on current psychotropic medication regimen. Monitor for medication compliance and for any psychotropic medication side effects. Will continue to monitor ongoing response to treatment.
[2019-01-04 12:51] LABS: Glucose,Whole Blood 92 mg/dL (75-99)
[2019-01-04] MEDS: LORazepam 1 MG TAB PO PRN (17:21)
[2019-01-04 17:28] LABS: Glucose,Whole Blood 119 mg/dL (75-99)
[2019-01-04 20:08] LABS: Glucose,Whole Blood 117 mg/dL (75-99)
[2019-01-04] MEDS: ATORVASTATIN 80 MG TAB PO SCH (21:23)
[2019-01-04] MEDS: hydrOXYzine PAMOATE 25 MG CAP PO PRN (21:24)
[2019-01-05 07:47] LABS: Glucose,Whole Blood 85 mg/dL (75-99)
[2019-01-05] MEDS: INSULIN ASPART (NovoLOG) 100 UNIT/ML VIAL SQ SCH ×4 (08:05→20:59)
[2019-01-05] MEDS: CITALOPRAM HYDROBROMIDE 20 MG TAB PO SCH (08:35)
[2019-01-05] MEDS: amLODIPine 10 MG TAB PO SCH (08:35)
[2019-01-05] MEDS: METOPROLOL TARTRATE 25 MG TAB PO SCH (08:35)
[2019-01-05] MEDS: ASPIRIN 81 MG PO SCH (08:35)
[2019-01-05] MEDS: ARIPiprazole 5 MG TAB PO SCH (08:35)
--- NOTE | 2019-01-05 10:53 | P.PN ---
Progress Note - Text Interval history: The patient's found in his room. He states he is willing to follow me to an interview room but he was told to stay in bed because his blood pressure was markedly elevated. He states his blood pressure was 200/100. The medical record does not support that however and his most recent reading was approximately 152/92. There has been some fluctuation with blood pressure but nothing severe. He remains compliant with his medication he feels that the medications are working. He has had visits with his over the weekend. He states that she wants him admitted for several weeks to the hospital. He has only attended a few groups over the weekend. Mental status exam: The patient is an overweight male appearing his stated age. Hygiene is improved it appears he has showered. Eye contact is improving. He often looks down when he speaks. The stuttering behavior is almost resolved. He demonstrated that briefly twice during our interaction. He is now speaking full sentences however without any stuttering behavior. There is no tremulousness behavior. He reports he feels safe in the hospital in terms of suicidal thoughts. He endorses some hopelessness thinking still. He reports no homicidal ideation intent or plan. He is reporting no auditory or visual hallucinations or any specific delusions. He demonstrates no observed evidence of psychosis. Insight and judgment limited. Plan: The patient will be continued on his current medication. We will follow his vital signs specifically blood pressure. He is encouraged to attend more groups staff will encourage participation throughout the day. We will continue to monitor him for safety. He continues to meet criteria for inpatient admission.
[2019-01-05 12:52] LABS: Glucose,Whole Blood 99 mg/dL (75-99)
[2019-01-05 17:54] LABS: Glucose,Whole Blood 107 mg/dL (75-99)
[2019-01-05 20:17] LABS: Glucose,Whole Blood 137 mg/dL (75-99)
[2019-01-05] MEDS: ATORVASTATIN 80 MG TAB PO SCH (20:58)
[2019-01-05] MEDS: LORazepam 1 MG TAB PO PRN (20:58)
[2019-01-05] MEDS: hydrOXYzine PAMOATE 25 MG CAP PO PRN (23:21)
[2019-01-06 08:00] LABS: Glucose,Whole Blood 87 mg/dL (75-99)
[2019-01-06] MEDS: INSULIN ASPART (NovoLOG) 100 UNIT/ML VIAL SQ SCH ×4 (08:19→20:39)
[2019-01-06] MEDS: ARIPiprazole 5 MG TAB PO SCH (09:14)
[2019-01-06] MEDS: ASPIRIN 81 MG PO SCH (09:15)
[2019-01-06] MEDS: amLODIPine 10 MG TAB PO SCH (09:15)
[2019-01-06] MEDS: METOPROLOL TARTRATE 25 MG TAB PO SCH (09:15)
[2019-01-06] MEDS: CITALOPRAM HYDROBROMIDE 20 MG TAB PO SCH (09:15)
--- NOTE | 2019-01-06 09:33 | P.PN ---
Progress Note - Text Interval history: The patient is found in his room he follows me to an interview room. He states he feels very tired. In reviewing his medication and it does not appear he has been using any as needed Ativan. He has been using the Vistaril and he last used it last night. We discussed the Vistaril may be causing his daytime sedation as well. He is encouraged to avoid using that medication. He doesn't feel that the Celexa or Abilify are making him tired but we will consider that as well. He reports he attended goalsetting any plans on attending the 9:30 group. Staff report he slept 7 hours he states that was fragmented. He did not shower yesterday he again is prompted to shower. He has been eating. He describes his mood as being "blah" Mental status exam: The patient's is alert but tired appearing his hygiene grooming are impaired, his hair appears dirty, eye contact is intermittent. He has a blunted affect. He indicates his mood is "blah". He reports hopelessness thinking with no acute thoughts of harming himself here in the hospital. He reports no homicidal ideation intent or plan. He demonstrates some stuttering behavior that's intermixed in the conversation but not a consistent finding. He reports some feelings of anxiety that are nonspecific. He demonstrates no verbal or physical aggressiveness he demonstrates no involuntary repetitive movements. Insight and judgment are limited. He is engaged in the conversation this morning minimally. He offers no spontaneous speech and is provides brief answers to questions. He demonstrates some psychomotor slowing and appears withdrawn overall. Plan: The patient will continue on his current psychotropic medications he is instructed to refrain from using any Ativan or Vistaril. We will consider whether or not the Abilify is causing sedation during the day. He is encouraged to fully attend groups today. Vital signs reviewed. He requires continued psychiatric hospitalization for safety reasons.
[2019-01-06 12:49] LABS: Glucose,Whole Blood 91 mg/dL (75-99)
[2019-01-06 17:25] LABS: Glucose,Whole Blood 144 mg/dL (75-99)
[2019-01-06 20:05] LABS: Glucose,Whole Blood 116 mg/dL (75-99)
[2019-01-06] MEDS: LORazepam 1 MG TAB PO PRN (20:38)
[2019-01-06] MEDS: ATORVASTATIN 80 MG TAB PO SCH (20:38)
[2019-01-07 07:53] LABS: Glucose,Whole Blood 88 mg/dL (75-99)
[2019-01-07] MEDS: INSULIN ASPART (NovoLOG) 100 UNIT/ML VIAL SQ SCH ×4 (07:54→20:36)
[2019-01-07] MEDS: ASPIRIN 81 MG PO SCH (08:53)
[2019-01-07] MEDS: amLODIPine 10 MG TAB PO SCH (08:53)
[2019-01-07] MEDS: METOPROLOL TARTRATE 25 MG TAB PO SCH (08:54)
[2019-01-07] MEDS: CITALOPRAM HYDROBROMIDE 20 MG TAB PO SCH (08:54)
[2019-01-07] MEDS: ARIPiprazole 5 MG TAB PO SCH (08:54)
--- NOTE | 2019-01-07 10:20 | P.PN ---
Progress Note - Text Interval history: The patient is found in his room sleeping. He was verbally arousable. He sat up for the interview. He indicates his mood is okay other than feeling tired. Again we discussed the importance of him being out of the bed during the day so he is able to sleep better at night. Staff report he slept 7 hours last evening. He indicates he attended 2-3 groups yesterday. Again we discussed the importance of attending all groups throughout the day. He anticipates a visit from his this evening. As a transition plan we discussed having him potentially attend the partial hospital program at [facility]. We described that program and his questions were answered. He expressed some interest. He has been eating. It appears as been showering about every other day. Mental status exam: The patient is alert he is less tired appearing this morning. He is a disheveled appearance hygiene is adequate. He is dressed in his own clothing. He maintains a constricted affect. He reports his mood is okay other than tired. He reports feeling safe in the hospital. He reports no homicidal ideation intent or plan. He is reporting no auditory or visual hallucinations or any specific delusions. He demonstrates no verbal or physical aggressiveness. He demonstrates no involuntary repetitive movements. He is oriented to person place and date. Plan: The patient will continue on his current psychotropic medication. We will monitor him for safety. We will discuss having him participate in the partial hospital program further at [facility] if this is covered by his insurance. He will discuss this option with his as well. He is encouraged to stay out of bed during the day and attending groups. Vital signs reviewed. His blood pressure is fluctuating and we will continue to monitor.
[2019-01-07 12:55] LABS: Glucose,Whole Blood 95 mg/dL (75-99)
[2019-01-07 17:31] LABS: Glucose,Whole Blood 104 mg/dL (75-99)
[2019-01-07 20:09] LABS: Glucose,Whole Blood 154 mg/dL (75-99)
[2019-01-07] MEDS: ATORVASTATIN 80 MG TAB PO SCH (21:14)
[2019-01-07] MEDS: hydrOXYzine PAMOATE 25 MG CAP PO PRN (22:46)
[2019-01-08 07:39] LABS: Glucose,Whole Blood 85 mg/dL (75-99)
[2019-01-08] MEDS: INSULIN ASPART (NovoLOG) 100 UNIT/ML VIAL SQ SCH ×4 (07:40→20:41)
[2019-01-08] MEDS: CITALOPRAM HYDROBROMIDE 20 MG TAB PO SCH (08:14)
[2019-01-08] MEDS: amLODIPine 10 MG TAB PO SCH (08:14)
[2019-01-08] MEDS: ARIPiprazole 5 MG TAB PO SCH (08:14)
[2019-01-08] MEDS: ASPIRIN 81 MG PO SCH (08:15)
[2019-01-08] MEDS: METOPROLOL TARTRATE 25 MG TAB PO SCH (08:15)
[2019-01-08] MEDS ORDERED: hydrOXYzine PAMOATE 25 MG CAP PO PRN (11:10)
--- NOTE | 2019-01-08 11:16 | P.PN ---
Progress Note - Text Interval history: The patient is found in his room he follows me to an interview room. He indicates he had a good start to the morning and attended the first group but then went back to bed to read a book and fell asleep. Staff reports he is not attending groups. He required use of the Vistaril again last evening for sleep. He states that he still was able to wake up this morning without difficulty. We reviewed his psychotropic medications we decided to move the Abilify to bedtime and titrate the Celexa further and he is agreeable. He states he thinks he is different now compared to last admission because of the attempted hanging and whatever happened that caused the stuttering. We discussed the situation at home. His was noted to be verbally abusive to nursing last evening. He states "I'm just used to it". Mental status exam: The patient is alert eye contact is improved affect is blunted. He is ambulating with his walker. He is dressed in his own clothing it appears he has not showered. He reports his mood is okay but he appears withdrawn and demonstrates psychomotor slowing. He puts little effort forth in our conversation. He reports feeling safe in the hospital he reports no suicidal ideation intent or plan. He is reporting no auditory or visual hallucinations or any specific delusions. He demonstrates no verbal or physical aggressiveness he demonstrates no involuntary repetitive movements. Insight and judgment are impaired. Plan: The patient has made little progress since being here so far. In case the Abilify is causing sedation during the day we will move that to bedtime. Celexa will be titrated to 30 mg daily. He feels strongly about having something available for sleep so we will use the Vistaril as needed so long as we do not think it is causing daytime fatigue. He is instructed to stay out of his room during the day and attend all groups. We discussed goals he would need to achieve prior to being discharged. Vital signs reviewed. We will continue to monitor him for safety. He requires continued psychiatric hospitalization.
[2019-01-08 12:44] LABS: Glucose,Whole Blood 86 mg/dL (75-99)
[2019-01-08 16:54] LABS: Glucose,Whole Blood 93 mg/dL (75-99)
[2019-01-08 20:16] LABS: Glucose,Whole Blood 111 mg/dL (75-99)
[2019-01-08] MEDS: ATORVASTATIN 80 MG TAB PO SCH (20:38)
[2019-01-08] MEDS: hydrOXYzine PAMOATE 25 MG CAP PO PRN (20:39)
[2019-01-09 07:56] LABS: Glucose,Whole Blood 88 mg/dL (75-99)
[2019-01-09] MEDS: INSULIN ASPART (NovoLOG) 100 UNIT/ML VIAL SQ SCH ×4 (07:57→20:49)
[2019-01-09] MEDS: ASPIRIN 81 MG PO SCH (08:24)
[2019-01-09] MEDS: METOPROLOL TARTRATE 25 MG TAB PO SCH (08:24)
[2019-01-09] MEDS: CITALOPRAM HYDROBROMIDE 10 MG TAB PO SCH (08:24)
[2019-01-09] MEDS: amLODIPine 10 MG TAB PO SCH (08:24)
--- NOTE | 2019-01-09 10:02 | P.PN ---
Progress Note - Text Interval history: The patient is found in the hallway. He was up and headed towards group. He indicates his mood is better today. He still struggles with sleeping last night staff report he slept 6 hours. He states typically at home him and his stay up all night and sleep during the day. We reviewed his current psychotropic medications he has no questions or concerns. He anticipates his will visit over the weekend. He indicates he will make more of an effort to attend groups today. Mental status exam: The patient is alert he is dressed in his own clothing and appears he has showered. He is ambulating with a walker. Eye contact is improved affect is brighter. He indicates mood is better. He reports feeling s afe in the hospital. He reports no homicidal ideation intent or plan. He is reporting no auditory or visual hallucinations or specific delusions. He demonstrates no tangential thinking loose associations or flight of ideas. Minimally he demonstrates stuttering behavior. Insight and judgment improving. He does not initiate conversation but does better in providing answers to questions. Plan: The patient will continue on his current psychotropic medication. We will monitor him for safety. Vital signs reviewed. He is encouraged to fully participate in the milieu. We will see how he progresses over the weekend and reassess his safety risk on Saturday. We expect his will visit over the weekend.
[2019-01-09 12:33] LABS: Glucose,Whole Blood 113 mg/dL (75-99)
[2019-01-09 18:28] LABS: Glucose,Whole Blood 103 mg/dL (75-99)
[2019-01-09 20:08] LABS: Glucose,Whole Blood 126 mg/dL (75-99)
[2019-01-09] MEDS: hydrOXYzine PAMOATE 25 MG CAP PO PRN (20:51)
[2019-01-09] MEDS: ARIPiprazole 5 MG TAB PO SCH (20:52)
[2019-01-09] MEDS: ATORVASTATIN 80 MG TAB PO SCH (20:52)
[2019-01-10 08:00] LABS: Glucose,Whole Blood 95 mg/dL (75-99)
[2019-01-10] MEDS: INSULIN ASPART (NovoLOG) 100 UNIT/ML VIAL SQ SCH ×4 (08:11→21:20)
[2019-01-10] MEDS: amLODIPine 10 MG TAB PO SCH (09:01)
[2019-01-10] MEDS: CITALOPRAM HYDROBROMIDE 10 MG TAB PO SCH (09:01)
[2019-01-10] MEDS: METOPROLOL TARTRATE 25 MG TAB PO SCH (09:01)
[2019-01-10] MEDS: ASPIRIN 81 MG PO SCH (09:01)
[2019-01-10 12:41] LABS: Glucose,Whole Blood 140 mg/dL (75-99)
--- NOTE | 2019-01-10 15:33 | P.PN ---
Progress Note - Text Progress Note Date: 01/10/19 Interval history: Patient is seen in cross coverage today. He relates that sleep and appetite are doing well. He does not voice any adverse psychotropic medication side effects. He relates that his mood is doing pretty well. He was watching a movie. Mental status exam: He is alert and cooperative with the interview. His speech is fluent, not rapid or pressured. He reports that his mood is doing pretty well. He does not verbalize any thoughts of harm to self or others. He does not voice any hallucinations. He does not show any agitation. His thought processes organized. Plan: Patient will be maintained on current psychotropic medication regimen. Continue to monitor for any medication side effects and monitor his ongoing response to treatment.
[2019-01-10 17:42] LABS: Glucose,Whole Blood 92 mg/dL (75-99)
[2019-01-10 20:12] LABS: Glucose,Whole Blood 151 mg/dL (75-99)
[2019-01-10] MEDS: hydrOXYzine PAMOATE 25 MG CAP PO PRN (21:21)
[2019-01-10] MEDS: ATORVASTATIN 80 MG TAB PO SCH (21:40)
[2019-01-10] MEDS: ARIPiprazole 5 MG TAB PO SCH (21:40)
[2019-01-11 07:47] LABS: Glucose,Whole Blood 86 mg/dL (75-99)
[2019-01-11] MEDS: INSULIN ASPART (NovoLOG) 100 UNIT/ML VIAL SQ SCH ×4 (07:49→21:27)
[2019-01-11] MEDS: CITALOPRAM HYDROBROMIDE 10 MG TAB PO SCH (07:50)
[2019-01-11] MEDS: ASPIRIN 81 MG PO SCH (07:50)
[2019-01-11] MEDS: amLODIPine 10 MG TAB PO SCH (07:50)
[2019-01-11] MEDS: METOPROLOL TARTRATE 25 MG TAB PO SCH (07:50)
[2019-01-11 12:41] LABS: Glucose,Whole Blood 94 mg/dL (75-99)
--- NOTE | 2019-01-11 14:39 | P.PN ---
Progress Note - Text Progress Note Date: 01/11/19 Interval history: Patient seen in cross coverage again today. He reports that his mood is doing better. He has not verbalize any adverse psychotropic medication side effects. He relates that his came to visit yesterday. She came to this interview from the group. Mental status exam: Patient is alert and cooperative. His mood he describes is improved. He denies any thoughts of harm to self. He does not voice any thoughts of harm to others. No evidence of psychosis or agitation. Plan: Patient will be maintained on current psychotropic medication regimen. Continue to monitor for any medication side effects and monitor his ongoing response to treatment.
[2019-01-11 17:44] LABS: Glucose,Whole Blood 90 mg/dL (75-99)
[2019-01-11] MEDS: ACETAMINOPHEN TAB 325 MG TAB PO PRN (19:42)
[2019-01-11 19:51] LABS: Glucose,Whole Blood 177 mg/dL (75-99)
[2019-01-11 20:42] LABS: Glucose,Whole Blood 135 mg/dL (75-99)
[2019-01-11] MEDS: hydrOXYzine PAMOATE 25 MG CAP PO PRN (20:54)
--- NOTE | 2019-01-11 21:10 | CT ---
EXAMINATION TYPE: CT brain wo con DATE OF EXAM: 01/11/2019 COMPARISON: 12/24/2018 HISTORY: Right sided weakness and stuttering. CT DLP: 1153 mGycm Automated exposure control for dose reduction was used. FINDINGS: Ventricles have normal size. There is no mass effect nor midline shift. There is no sign of intracran ial hemorrhage. The calvarium is intact. There is no evidence of cerebral edema. IMPRESSION: NEGATIVE CT SCAN OF THE BRAIN. NO CHANGE.
[2019-01-11] MEDS: ATORVASTATIN 80 MG TAB PO SCH (21:27)
[2019-01-11] MEDS: ARIPiprazole 5 MG TAB PO SCH (21:27)
[2019-01-12 07:53] LABS: Glucose,Whole Blood 94 mg/dL (75-99)
[2019-01-12] MEDS: INSULIN ASPART (NovoLOG) 100 UNIT/ML VIAL SQ SCH ×4 (08:25→20:36)
[2019-01-12] MEDS: METOPROLOL TARTRATE 25 MG TAB PO SCH (08:57)
[2019-01-12] MEDS: amLODIPine 10 MG TAB PO SCH (08:57)
[2019-01-12] MEDS: ASPIRIN 81 MG PO SCH (08:57)
[2019-01-12] MEDS: CITALOPRAM HYDROBROMIDE 10 MG TAB PO SCH (08:57)
--- NOTE | 2019-01-12 09:34 | P.PN ---
Progress Note - Text Interval history: The patient is found in his room he follows me to an interview room. He indicates his mood is okay. He does still feel down and anxious at times. He did sleep throughout the night. He indicates that he attended most groups yesterday except for one. We will have to verify with staff. He states his did visit over the weekend that was supportive. He has no questions or concerns regarding his medication. Mental status exam: The patient is alert he is a disheveled appearance he did not shower yet today. He is dressed in different clothing. He is ambulating with his walker. There is no evidence of tremor or stutter. Eye contact is improved. Affect is brighter. He states that he is feeling less anxious day by day he reports that his hopelessness thinking is improving. He feels safe in the hospital in terms of suicidal ideation. He reports no homicidal ideation intent or plan. He reports no auditory or visual hallucinations or specific delusions. He demonstrates no hypomania or letty. Insight and judgment slowly improving. Plan: The patient will be continued on his current medication. He is demonstrating some clinical improvement. We discussed that he may be appropriate for discharge by mid week. Vital signs reviewed. He is encouraged to fully participate in the milieu.
[2019-01-12 10:42] VITALS: BMI 34.0
[2019-01-12 12:41] LABS: Glucose,Whole Blood 135 mg/dL (75-99)
[2019-01-12 17:43] LABS: Glucose,Whole Blood 123 mg/dL (75-99)
[2019-01-12 20:17] LABS: Glucose,Whole Blood 139 mg/dL (75-99)
[2019-01-12] MEDS: ATORVASTATIN 80 MG TAB PO SCH (21:51)
[2019-01-12] MEDS: hydrOXYzine PAMOATE 25 MG CAP PO PRN (21:52)
[2019-01-12] MEDS: ARIPiprazole 5 MG TAB PO SCH (21:53)
[2019-01-13 07:14] VITALS: RESP 16
[2019-01-13 08:03] LABS: Glucose,Whole Blood 117 mg/dL (75-99)
[2019-01-13] MEDS: INSULIN ASPART (NovoLOG) 100 UNIT/ML VIAL SQ SCH ×4 (08:23→20:21)
--- NOTE | 2019-01-13 09:01 | P.PN ---
Progress Note - Text Interval history: The patient's found in his room he follows me to an interview room. He indicates his mood is improving. He is hoping that he can be discharged tomorrow. He indicates he has discussed this with his . We reviewed his psychotropic medications as questions were answered. He indicates he attended most of his groups yesterday and showered. Appetite is stable. We reviewed his drug screen upon presentation to the hospital which was positive for methamphetamine. Again he states he did not knowingly use that substance and assumes it was in the marijuana he had smoked. Mental status exam: The patient is alert he is dressed in his own clothing hygiene grooming adequate. He is ambulating with a walker. Eye contact is appropriate affect is brighter. He is more interactive in the session. He has some spontaneous speech. He reports no hopelessness thinking at this time is reporting no acute suicidal ideation intent or plan or homicidal ideation intent or plan. He reports no auditory or visual hallucinations or any specific delusions. He demonstrates no symptoms of hypomania or letty. Insight and ju dgment improving. He demonstrates no stuttering behavior with speech he demonstrates no tremor. He ambulates quite well with the walker he demonstrates no evidence of weakness. Plan: The patient will continue on his current psychotropic medication. We will continue to monitor him for safety. We will plan on discharging him from the mental health unit tomorrow if he is clinically stable. Vital signs reviewed.
[2019-01-13] MEDS: ASPIRIN 81 MG PO SCH (11:10)
[2019-01-13] MEDS: CITALOPRAM HYDROBROMIDE 10 MG TAB PO SCH (11:10)
[2019-01-13] MEDS: METOPROLOL TARTRATE 25 MG TAB PO SCH (11:10)
[2019-01-13] MEDS: amLODIPine 10 MG TAB PO SCH (11:10)
[2019-01-13 12:46] LABS: Glucose,Whole Blood 96 mg/dL (75-99)
[2019-01-13 17:42] LABS: Glucose,Whole Blood 136 mg/dL (75-99)
[2019-01-13 20:04] LABS: Glucose,Whole Blood 95 mg/dL (75-99)
[2019-01-13] MEDS: ARIPiprazole 5 MG TAB PO SCH (20:17)
[2019-01-13] MEDS: ACETAMINOPHEN TAB 325 MG TAB PO PRN (20:18)
[2019-01-13] MEDS: ATORVASTATIN 80 MG TAB PO SCH (20:20)
[2019-01-14 07:12] VITALS: BP 161/99; PULSE 67; TEMP 98.1
[2019-01-14 07:59] LABS: Glucose,Whole Blood 87 mg/dL (75-99)
[2019-01-14] MEDS: INSULIN ASPART (NovoLOG) 100 UNIT/ML VIAL SQ SCH (08:33)
[2019-01-14] MEDS: amLODIPine 10 MG TAB PO SCH (09:23)
[2019-01-14] MEDS: METOPROLOL TARTRATE 25 MG TAB PO SCH (09:23)
[2019-01-14] MEDS: ASPIRIN 81 MG PO SCH (09:23)
[2019-01-14] MEDS: CITALOPRAM HYDROBROMIDE 10 MG TAB PO SCH (09:23)
--- NOTE | 2019-01-14 09:40 | P.DS ---
Providers Date of admission: 12/29/18 21:15 Expected date of discharge: 01/14/19 Attending physician: Ronaldo Sherwood Consults: 12/29/18 21:46 Consult Physician Routine Consulting Provider: Anival Davis Consult Reason/Comments: H&P and medical Do you want consulting provider notified?: Yes Primary care physician: Stated None - Discharge Diagnosis(es) (1) Bipolar disorder, now depressed Current Visit: No Status: Acute Priority: High (2) Cannabis use disorder, mild, abuse Current Visit: No Status: Acute Priority: Medium Hospital Course: Brief summary admission note: This patient is a 53-year-old male who was admitted to the mental health unit from the general medical floor. He reported having suicidal ideation. The patient was initially admitted to the mental health unit there was a concern that he was suffering from a stroke and was transferred for further evaluation on the medical floor by neurology. He underwent an MRI of his brain he was seen by neurology and he was cleared to be transferred back to the mental health unit. The patient reported feeling depressed and overwhelmed he endorsed suicidal ideation. He sent a text to his SANE she was better off without him. The patient did not follow-up with mental healthcare upon discharge from this unit last time. For full details please refer to my psychiatric evaluation dated 12/30/2018. Summary of hospital course: The patient was admitted to the mental health unit voluntarily. We reviewed his presenting symptoms and treatment options. Dr. Arizmendi had spoken with the patient's regarding medication management. It appears they felt he had done better on Celexa and Abilify in the past. Previously we had used Lamictal. Celexa and Abilify were initiated. The patient tolerated the medication the Celexa was titrated during the course of his stay. The patient was seen by internal medicine for routine history and physical exam. The patient was interviewed by social work to complete a psychosocial assessment and they were involved in discharge planning. Interestingly the patient demonstrated stuttering speech behavior during this admission which was new and he presented with a tremor of his right upper extremity. The tremor resolved to the very next day and the stuttering behavior resolved after several days. The patient's isolated in his room early into the admission. As the hospitalization progressed he began participating in groups. His did visit during the hospitalization. His is known to become quite agitated on the mental health unit. The patient refuses a support meeting involving his due to her history of agitation. The patient states that his mood has improved he no longer has any suicidal ideation he describes future oriented thinking. Mental status exam: The patient is alert he is dressed in his own clothing hygiene grooming adequate. Eye contact is improved. Speech is fluent spontaneous nonpressured. He reports his mood is better. He denies having any suicidal ideation intent or plan. He reports no homicidal ideation intent or plan. He denies having any auditory or visual hallucinations or any specific delusions. There is no observed evidence of psychosis. He demonstrates no tangential thinking loose associations or flight of ideas. He does not appear hypomanic or manic at this time. He demonstrates no verbal or physical aggressiveness he demonstrates no involuntary repetitive movements. Insight and judgment have improved. He is oriented to person place and date. He sp ontaneously describes future oriented thinking. Impressions 1. Bipolar depression, severe without psychosis, cannabis use disorder Plan: The patient's will be discharged mental health unit today to return home. He will continue on Celexa 30 mg daily and Abilify 5 mg daily. He will be arranged for him to follow up with [facility] upon discharge. He will establish with the [facility] at [facility]. He is instructed to abstain from any use of alcohol marijuana or any illicit drugs as these can elevate his safety risk. He does not wish to participate in inpatient chemical dependency treatment for his use of marijuana. At this time there is no imminent safety risk is appropriate for transition to outpatient care. He is instructed to return to the hospital to any acute safety concerns. Patient Condition at Discharge: Stable Plan - Discharge Summary Discharge Rx Participant: No New Discharge Prescriptions: New ARIPiprazole [Abilify] 5 mg PO HS #30 tab Citalopram Hydrobromide [Citalopram HBr] 30 mg PO DAILY #45 tablet hydrOXYzine PAMOATE [Vistaril] 25 mg PO HS PRN #30 cap PRN Reason: Insomnia Continue Aspirin [Adult Low Dose Aspirin EC] 81 mg PO DAILY #30 tablet. Atorvastatin [Lipitor] 80 mg PO HS #30 tab Metoprolol Tartrate [Lopressor] 25 mg PO DAILY #30 tab amLODIPine [Norvasc] 10 mg PO DAILY #30 tab Discontinued lamoTRIgine [LaMICtal] 25 mg PO BID #60 tab hydrOXYzine PAMOATE [Vistaril] 25 mg PO Q8HR PRN #30 cap PRN Reason: Anxiety Discharge Medication List Aspirin [Adult Low Dose Aspirin EC] 81 mg PO DAILY #30 tablet. 12/27/18 [Rx] ARIPiprazole [Abilify] 5 mg PO HS #30 tab 01/14/19 [Rx] Atorvastatin [Lipitor] 80 mg PO HS #30 tab 01/14/19 [Rx] Citalopram Hydrobromide [Citalopram HBr] 30 mg PO DAILY #45 tablet 01/14/19 [Rx] Metoprolol Tartrate [Lopressor] 25 mg PO DAILY #30 tab 01/14/19 [Rx] amLODIPine [Norvasc] 10 mg PO DAILY #30 tab 01/14/19 [Rx] hydrOXYzine PAMOATE [Vistaril] 25 mg PO HS PRN #30 cap 01/14/19 [Rx] Follow up Appointment(s)/Referral(s): [facility] [[facility]STA[facility] - 1 Week Patient Instructions/Handouts: Depression (DC), Help Prevent Suicide (DC) Activity/Diet/Wound Care/Special Instructions: Need a rolling walker ordered for D/C per OT. Activity and diet as tolerated. No guns or weapons in the home. No alcohol or street drugs not prescribed by physician. Take all medications as prescribed, and attend all follow up appointments as scheduled. If in need of medication refills, please go to your outpatient psychiatric provider, or to your primary care physician. If in crisis, please call , or go to the nearest ER for an evaluation.
== END 2019-01-14 10:24 | disposition home or self-care (01) | DRG 885 ==
LOC: 3MHU 21:15
PROVIDERS: ADMIT Psychiatry & Neurology Psychiatry; ATTEND Psychiatry & Neurology Psychiatry
DX: F31.4 Bipolar disorder, current episode depressed, severe, without psychotic features (principal); R45.851 Suicidal ideations; F12.10 Cannabis abuse, uncomplicated; E11.9 Type 2 diabetes mellitus without complications; F41.9 Anxiety disorder, unspecified; Z91.5 Personal history of self-harm; F98.5 Adult onset fluency disorder; I10 Essential (primary) hypertension; I48.91 Unspecified atrial fibrillation; K21.9 Gastro-esophageal reflux disease without esophagitis; Z79.899 Other long term (current) drug therapy; Z88.2 Allergy status to sulfonamides; R29.810 Facial weakness; R53.1 Weakness; K59.00 Constipation, unspecified; Z90.49 Acquired absence of other specified parts of digestive tract; G89.29 Other chronic pain; M54.9 Dorsalgia, unspecified; Z90.79 Acquired absence of other genital organ(s); Z82.49 Family history of ischemic heart disease and other diseases of the circulatory system; Z86.73 Personal history of transient ischemic attack (TIA), and cerebral infarction without residual deficits; Z85.46 Personal history of malignant neoplasm of prostate; G47.30 Sleep apnea, unspecified; Z99.89 Dependence on other enabling machines and devices; F90.9 Attention-deficit hyperactivity disorder, unspecified type; F15.90 Other stimulant use, unspecified, uncomplicated
CPT/HCPCS: 70450

== ENCOUNTER 2022-06-29 10:17 | Inpatient (IN) | payer MEDICARE ==
[2022-06-29] MEDS ORDERED: ACETAMINOPHEN TAB 500 MG TAB PO STA (10:41)
[2022-06-29] MEDS ORDERED: IBUPROFEN 600 MG TAB PO STA (10:41)
[2022-06-29] MEDS ORDERED: HYDROmorphone 0.5 MG/0.5 ML SYRINGE IVP STA ×2 (10:42→15:25)
[2022-06-29] MEDS ORDERED: ONDANSETRON 4 MG/2 ML VIAL IVP STA (10:42)
[2022-06-29] MEDS ORDERED: hydrALAZINE HCL 20 MG/ML 1 ML VIAL IVP STA ×2 (10:54→12:16)
[2022-06-29] MEDS: SODIUM CHLORIDE 0.9% 500 ML 500 ML IV SCH ×3 (11:11→12:11)
--- NOTE | 2022-06-29 11:19 | ED ---
General Adult HPI - General Chief complaint: Recheck/Abnormal Lab/Rx Stated complaint: AFIB Time Seen by Provider: 06/29/22 10:30 Source: patient, RN notes reviewed, old records reviewed Mode of arrival: wheelchair Limitations: no limitations - History of Present Illness Initial comments: This a 56-year-old male who comes into the department stating he just doesn't feel well he's got pain in his kidney. He states he also states he is been vomiting all day today. Patient states he didn't feel well yesterday went to the doctor's yesterday and they indicated to him his blood pressure was high and they sent him home on lisinopril. Patient states his blood pressures has again been high. Patient states she's been vomiting so is not been able to take his lisinopril. Patient denies any chest pain or palpitations. Patient states she's got the chills but was unaware he had a fever until I took his temperature, it was 100.1. Patient denies any dysuria hematuria urinary frequency. Patient does complain of abdominal pain more in the left than the right. - Related Data Home Medications Medication Instructions Recorded Confirmed lisinopriL [Zestril] 20 mg PO HS 06/29/22 06/29/22 Allergies Allergy/AdvReac Type Severity Reaction Status Date / Time Sulfa (Sulfonamide Allergy Unknown Anaphylaxis Verified 06/29/22 11:14 Antibiotics) Review of Systems ROS Statement: Those systems with pertinent positive or pertinent negative responses have been documented in the HPI. ROS Other: All systems not noted in ROS Statement are negative. Past Medical History Past Medical History: Atrial Fibrillation, Cancer, CVA/TIA, Diabetes Mellitus, GERD/Reflux, Hyperlipidemia, Hypertension, Musculoskeletal Disorder, Sleep Apnea/CPAP/BIPAP Additional Past Medical History / Comment(s): PROSTATE CANCER, DIABETES -DIET CONTROLLED, CHRONIC BACK PAIN WITH NERVE DAMAGE LEFT FOOT, STATES HX OF 1 EPISODE OF A-FIB, STATES HIGH BLOODPRESSURE-NO MEDS, CONSTIPATION. 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 History of Any Multi-Drug Resistant Organisms: None Reported Past Surgical History: Appendectomy, Back Surgery, Cholecystectomy, Tonsillectomy Additional Past Surgical History / Comment(s): BACK SURGERY x2, prostate biopsy . 06-16-14 PROSTATECTOMY Past Anesthesia/Blood Transfusion Reactions: No Reported Reaction, Previous Problems w/ Anesthesia Additional Past Anesthesia/Blood Transfusion Reaction / Comment(s): STATES DIFFICULT INTUBATION. Past Psychological History: ADD/ADHD, Anxiety, Depression Smoking Status: Never smoker Past Alcohol Use History: None Reported Past Drug Use History: Marijuana - Past Family History Mother Family Medical History: No Reported History Father Family Medical History: Myocardial Infarction ([place]) Brother(s) Family Medical History: No Reported History Sister(s) Family Medical History: No Reported History Daughter(s) Family Medical History: No Reported History General Exam - General Exam Comments Initial Comments: GENERAL: Patient is well-developed and well-nourished. Patient is nontoxic and well-hydrated and is in moderate distress. ENT: Neck is soft and supple. No significant lymphadenopathy is noted. Oropharynx is clear. Moist mucous membranes. Neck has full range of motion without eliciting any pain. EYES: The sclera were anicteric and conjunctiva were pink and moist. Extraocular mov ements were intact and pupils were equal round and reactive to light. Eyelids were unremarkable. PULMONARY: Unlabored respirations. Good breath sounds bilaterally. No audible rales rhonchi or wheezing was noted. CARDIOVASCULAR: There is a regular rate and rhythm without any murmurs gallops or rubs. ABDOMEN: Patient has tenderness on the left side. SKIN: Skin is clear with no lesions or rashes and otherwise unremarkable. NEUROLOGIC: Patient is alert and oriented x3. Cranial nerves II through XII are grossly intact. Motor and sensory are also intact. Normal speech, volume and content. Symmetrical smile. MUSCULOSKELETAL: Normal extremities with adequate strength and full range of motion. LYMPHATICS: No significant lymphadenopathy is noted PSYCHIATRIC: Normal psychiatric evaluation. Limitations: no limitations Course Vital Signs 06/29/22 06/29/22 06/29/22 10:27 11:15 11:39 Temperature 98.6 F Pulse Rate 74 87 87 Respiratory 24 20 18 Rate Blood Pressure 218/123 183/134 177/108 O2 Sat by Pulse 93 L 98 96 Oximetry 06/29/22 06/29/22 06/29/22 12:13 12:52 13:19 Temperature 97.2 F L 98 F Pulse Rate 95 91 100 Respiratory 18 15 16 Rate Blood Pressure 172/114 154/92 163/100 O2 Sat by Pulse 98 94 L 94 L Oximetry 06/29/22 06/29/22 14:18 15:03 Temperature 97.7 F Pulse Rate 102 H 95 Respiratory 18 18 Rate Blood Pressure 153/88 128/84 O2 Sat by Pulse 94 L 97 Oximetry Medical Decision Making - Medical Decision Making EKG is interpreted by myself shows a sinus rhythm at 73 bpm [place] interval 180 QRS is 96 QT interval 4:30 QTC is 439. Patient shows no elevation or depression Was pt. sent in by a medical professional or institution (, PA, HUMANITIES PROFESSOR, urgent care, hospital, or [facility]...) When possible be specific @ -No Did you speak to anyone other than the patient for history (EMS, parent, family, police, friend...)? What history was obtained from this source @ -No Did you review nursing and triage notes (agree or disagree)? Why? @ -I reviewed and agree with nursing and triage notes Were old charts reviewed (outside hosp., previous admission, EMS record, old EKG, old radiological studies, urgent care reports/EKG's, [facility] records)? Report findings @ -No old charts were reviewed Differential Diagnosis (chest pain, altered mental status, abdominal pain women, abdominal pain men, vaginal bleeding, weakness, fever, dyspnea, syncope, headache, dizziness, GI bleed, back pain, seizure, CVA, palpatations, mental health, musculoskeletal)? @ -Differential Seizure: Recurrent seizure disorder, febrile seizure, alcohol withdrawal, stimulants, meningitis, encephalitis, intercranial hemorrhage, intracranial tumor, stroke, eclampsia, thyrotoxicosis, hypocalcemia, hyponatremia, hypernatremia, hypomagnesemia, psychogenic, this is not meant to be an all-inclusive list. EKG interpreted by me (3pts min.). @ -As above X-rays interpreted by me (1pt min.). @ -Chest x-ray was interpreted by myself. Chest x-ray showed no acute abnormality. CT interpreted by me (1pt min.). @ -CAT scan of the abdomen and pelvis shows bilateral hydrocele with some fat stranding U/S interpreted by me (1pt. min.). @ -None done What testing was considered but not performed or refused? (CT, X-rays, U/S, labs)? Why? @ -None What meds were considered but not given or refused? Why? @ -None Did you discuss the management of the patient with other professionals (professionals i.e. DrAdelia, PA, HUMANITIES PROFESSOR, lab, RT, psych nurse, social research assistant, director of government sales, teacher, correctional probation officer, supportive employment case manager)? Give summary @ -I spoke with she doctor she agreed to admit the patient Was smoking cessation discussed for >3mins.? @ -No Was critical care preformed (if so, how long)? @ -No Were there social determinants of health that impacted care today? How? (Homelessness, low income, unemployed, alcoholism, drug addiction, transportation, low edu. Level, literacy, decrease access to med. care, penitentiary, rehab)? @ -No Was there de-escalation of care discussed even if they declined (Discuss DNR or withdrawal of care, Hospice)? DNR status @ -No What co-morbidities impacted this encounter? (DM, HTN, Smoking, COPD, CAD, Cancer, CVA, ARF, Chemo, Hep., AIDS, mental health diagnosis, sleep apnea, morbid obesity)? @ -None Was patient admitted / discharged? Hospital course, mention meds given and route, prescriptions, significant lab abnormalities, going to OR and other pertinent info. @ -Patient was given Motrin and Tylenol for the fever did bring down his fever nicely was given a fluid. Patient was given hydralazine twice to bring his pressure down to normal range. Patient will white cells in the urine given Rocephin. Patient's CAT scan showed bilateral hydroureter Undiagnosed new problem with uncertain prognosis? @ -No Drug Therapy requiring intensive monitoring for toxicity (Heparin, Nitro, Insulin, Cardizem)? @ -No Were any procedures done? @ -No Diagnosis/symptom? @ -Hypertensive urgency Acute, or Chronic, or Acute on Chronic? @ -Acute Uncomplicated (without systemic symptoms) or Complicated (systemic symptoms)? @ -Complicated Side effects of treatment? @ -No Exacerbation, Progression, or Severe Exacerbation? @ -No Poses a threat to life or bodily function? How? (Chest pain, [place], [place], pneumonia, PE, COPD, DKA, ARF, appy, cholecystitis, CVA, Diverticulitis, Homicidal, Suicidal, threat to staff... and all critical care pts) @ -Yes this could lead to end organ dysfunction Diagnosis/symptom? @ -Bilateral hydronephrosis Acute, or Chronic, or Acute on Chronic? @ -Acute Uncomplicated (without systemic symptoms) or Complicated (systemic symptoms)? @ -Complicated Side effects of treatment? @ -None Exacerbation, Progression, or Severe Exacerbation] @ -No Poses a threat to life or bodily function? @ -No - Lab Data Result diagrams: 06/29/22 11:06 06/29/22 11:06 Lab Results 06/29/22 06/29/22 06/29/22 Range/Units 11:06 11:06 11:06 WBC 9.9 (3.8-10.6) k/uL RBC 5.07 (4.30-5.90) m/uL Hgb 14.8 (13.0-17.5) gm/dL Hct 43.2 (39.0-53.0) % MCV 85.3 (80.0-100.0) fL MCH 29.2 (25.0-35.0) pg MCHC 34.2 (31.0-37.0) g/dL RDW 13.6 (11.5-15.5) % Plt Count 265 (150-450) k/uL MPV 7.6 Neutrophils % 77 % Lymphocytes % 9 % Monocytes % 6 % Eosinophils % 6 % Basophils % 0 % Neutrophils # 7.7 (1.3-7.7) k/uL Lymphocytes # 0.9 L (1.0-4.8) k/uL Monocytes # 0.6 (0-1.0) k/uL Eosinophils # 0.6 (0-0.7) k/uL Basophils # 0.0 (0-0.2) k/uL PT 9.8 (9.0-12.0) sec INR 0.9 (<1.2) APTT 23.0 (22.0-30.0) sec Sodium (137-145) mmol/L Potassium (3.5-5.1) mmol/L Chloride (98-107) mmol/L Carbon Dioxide (22-30) mmol/L Anion Gap mmol/L BUN (9-20) mg/dL Creatinine (0.66-1.25) mg/dL Est GFR (CKD-EPI)AfAm (>60 ml/min/1.73 sqM) Est GFR (CKD-EPI)NonAf (>60 ml/min/1.73 sqM) Glucose (74-99) mg/dL Plasma Lactic Acid Chris (0.7-2.0) mmol/L Calcium (8.4-10.2) mg/dL Total Bilirubin (0.2-1.3) mg/dL AST (17-59) U/L ALT (4-49) U/L Alkaline Phosphatase (38-126) U/L Total Protein (6.3-8.2) g/dL Albumin (3.5-5.0) g/dL Urine Color Light Yellow Urine Appearance Clear (Clear) Urine pH 6.5 (5.0-8.0) Ur Specific [place] 1.009 (1.001-1.035) Urine Protein 2+ H (Negative) Urine Glucose (UA) Negative (Negative) Urine Ketones 1+ H (Negative) Urine Blood Negative (Negative) Urine Nitrite Negative (Negative) Urine Bilirubin Negative (Negative) Urine Urobilinogen <2.0 (<2.0) mg/dL Ur Leukocyte Esterase Negative (Negative) Urine RBC 5 (0-5) /hpf Urine WBC 12 H (0-5) /hpf Urine Bacteria Rare H (None) /hpf Urine Mucus Rare H (None) /hpf Influenza Type A (PCR) (Not Detectd) Influenza Type B (PCR) (Not Detectd) RSV (PCR) (Not Detectd) SARS-CoV-2 (PCR) (Not Detectd) 06/29/22 06/29/22 06/29/22 Range/Units 11:06 11:06 11:06 WBC (3.8-10.6) k/uL RBC (4.30-5.90) m/uL Hgb (13.0-17.5) gm/dL Hct (39.0-53.0) % MCV (80.0-100.0) fL MCH (25.0-35.0) pg MCHC (31.0-37.0) g/dL RDW (11.5-15.5) % Plt Count (150-450) k/uL MPV Neutrophils % % Lymphocytes % % Monocytes % % Eosinophils % % Basophils % % Neutrophils # (1.3-7.7) k/uL Lymphocytes # (1.0-4.8) k/uL Monocytes # (0-1.0) k/uL Eosinophils # (0-0.7) k/uL Basophils # (0-0.2) k/uL PT (9.0-12.0) sec INR (<1.2) APTT (22.0-30.0) sec Sodium 140 (137-145) mmol/L Potassium 3.6 (3.5-5.1) mmol/L Chloride 105 (98-107) mmol/L Carbon Dioxide 26 (22-30) mmol/L Anion Gap 9 mmol/L BUN 18 (9-20) mg/dL Creatinine 1.29 H (0.66-1.25) mg/dL Est GFR (CKD-EPI)AfAm 71 (>60 ml/min/1.73 sqM) Est GFR (CKD-EPI)NonAf 61 (>60 ml/min/1.73 sqM) Glucose 130 H (74-99) mg/dL Plasma Lactic Acid Chris 1.2 (0.7-2.0) mmol/L Calcium 8.8 (8.4-10.2) mg/dL Total Bilirubin 0.8 (0.2-1.3) mg/dL AST 23 (17-59) U/L ALT 24 (4-49) U/L Alkaline Phosphatase 78 (38-126) U/L Total Protein 7.6 (6.3-8.2) g/dL Albumin 4.5 (3.5-5.0) g/dL Urine Color Urine Appearance (Clear) Urine pH (5.0-8.0) Ur Specific [place] (1.001-1.035) Urine Protein (Negative) Urine Glucose (UA) (Negative) Urine Ketones (Negative) Urine Blood (Negative) Urine Nitrite (Negative) Urine Bilirubin (Negative) Urine Urobilinogen (<2.0) mg/dL Ur Leukocyte Esterase (Negative) Urine RBC (0-5) /hpf Urine WBC (0-5) /hpf Urine Bacteria (None) /hpf Urine Mucus (None) /hpf Influenza Type A (PCR) Not Detected (Not Detectd) Influenza Type B (PCR) Not Detected (Not Detectd) RSV (PCR) Not Detected (Not Detectd) SARS-CoV-2 (PCR) Not Detected (Not Detectd) Disposition Clinical Impression: Hypertensive urgency, Hydronephrosis, Fever, Vomiting Disposition: ADMITTED IP TO THIS HOSP Referrals: Jacky Persaud MD [Primary Care Provider] - 1-2 days Time of Disposition: 15:11
[2022-06-29 11:30] LABS: Basophils % (A) 0 %; Eosinophils # (A) 0.6 k/uL (0-0.7); Eosinophils % (A) 6 %; HCT 43.2 % (39.0-53.0); HGB 14.8 gm/dL (13.0-17.5); Lymphocytes # (A) 0.9 k/uL (1.0-4.8); Lymphocytes % (A) 9 %; MCH 29.2 pg (25.0-35.0); MCHC 34.2 g/dL (31.0-37.0); MCV 85.3 fL (80.0-100.0); Mean Platelet Volume 7.6; Monocytes # (A) 0.6 k/uL (0-1.0); Monocytes % (A) 6 %; Neutrophils # (A) 7.7 k/uL (1.3-7.7); Neutrophils % (A) 77 %; Platelet Count 265 k/uL (150-450); RBC 5.07 m/uL (4.30-5.90); RDW 13.6 % (11.5-15.5); WBC 9.9 k/uL (3.8-10.6)
[2022-06-29 11:41] LABS: INR 0.9 (<1.2); Prothrombin Time 9.8 sec (9.0-12.0)
--- NOTE | 2022-06-29 11:43 | CT ---
EXAMINATION TYPE: CT abdomen pelvis wo con CT DLP: 980.6 mGycm, Automated exposure control for dose reduction was used. DATE OF EXAM: 06/29/2022 11:31 AM COMPARISON: CT abdomen pelvis most recent from 07/02/2012. CLINICAL INDICATION:Male, 56 years old with history of Abdominal pain; kidney pain TECHNIQUE: Standard CT of the abdomen and pelvis without IV or oral contrast. Lack of IV or oral co ntrast limits evaluation of solid and hollow organ viscera. Coronal and sagittal reformats were perfo rmed. FINDINGS: LOWER CHEST: Posterior dependent subsegmental atelectasis is noted. ABDOMEN LIVER: Hypodense focus within the right hepatic dome which is too small to characterize but likely re presents a cyst. GALLBLADDER AND BILE DUCTS: The gallbladder is surgically absent. PANCREAS: Unremarkable noncontrast appearance. SPLEEN: Scattered calcified granulomas. ADRENAL GLANDS: Unremarkable noncontrast appearance. KIDNEYS AND URETERS: Mild bilateral hydronephrosis without obstructing calculus identified. Nonobstru ctive right renal calculi with largest measuring up to 2 mm. Left perinephric fat stranding identifie d. Bilateral periureteral fashioning identified. Trace amount of fluid along the retroperitoneum exte nding into the pelvis. PELVIS BLADDER: Unremarkable REPRODUCTIVE: Penile pump prosthesis and shape. Prostatectomy changes. ABDOMEN & PELVIS STOMACH AND BOWEL: Small hiatal hernia, duodenum is unremarkable. Distal colonic diverticulosis witho ut evidence for acute diverticulitis. No evidence of bowel obstruction. PERITONEUM: No evidence of pneumoperitoneum or free fluid. VASCULATURE: Mild atherosclerotic calcifications are present throughout the abdominal aorta and its b ranches. No evidence of aortic aneurysm. Pelvic phleboliths. MUSCULOSKELETAL: No acute osseous abnormalities. Moderate disc degeneration changes are present throu ghout the thoracolumbar spine. No acute osseous abnormality. No aggressive osseous lesion. LYMPH NODES: No gross evidence for lymphadenopathy. SOFT TISSUE/ABDOMINAL WALL: Unremarkable IMPRESSION: 1. Mild bilateral hydronephrosis with left perinephric and bilateral perirenal fat stranding. No obs tructing calculi identified. Additional nonobstructive right renal calculi. Findings may be seen with in ascending infection. Correlation with urinalysis is recommended. 2. Colonic diverticulosis without evidence for acute diverticulitis.
--- NOTE | 2022-06-29 11:45 | XR ---
EXAMINATION TYPE: XR chest 2V DATE OF EXAM: 06/29/2022 11:33 AM COMPARISON: CTA chest 06/20/2014 TECHNIQUE: XR chest 2V Frontal and lateral views of the chest. CLINICAL INDICATION:Male, 56 years old with history of Fever; FINDINGS: Lungs/Pleura: There is no evidence of pleural effusion, focal consolidation, or pneumothorax. Pulmonary vascularity: Unremarkable. Heart/mediastinum: Cardiomediastinal silhouette is enlarged. Musculoskeletal: No acute osseous pathology. Other: Surgical clips in the upper abdomen. IMPRESSION: Cardiomegaly without evidence for acute pulmonary process.
[2022-06-29 12:50] LABS: Albumin 4.5 g/dL (3.5-5.0); Calcium 8.8 mg/dL (8.4-10.2); Potassium 3.6 mmol/L (3.5-5.1); Total Bilirubin 0.8 mg/dL (0.2-1.3); Total Protein 7.6 g/dL (6.3-8.2)
[2022-06-29 14:15] LABS: Appearance,Urine Clear (Clear); Bacteria,Urine Rare /hpf; Bilirubin,Urine Negative (Negative); Blood,Urine Negative (Negative); Color,Urine Light Yellow; Glucose,Urine (UA) Negative (Negative); Ketones,Urine 1+ (Negative); Leukocyte Esterase,Urine Negative (Negative); Mucus,Urine Rare /hpf; Nitrite,Urine Negative (Negative); PH, Urine 6.5 (5.0-8.0); Protein,Urine 2+ (Negative); RBC,Urine 5 /hpf (0-5); Specific Gravity,Urine 1.009 (1.001-1.035); Urobilinogen,Urine <2.0 mg/dL (<2.0); WBC,Urine 12 /hpf (0-5)
[2022-06-29] MEDS ORDERED: SODIUM CHLORIDE 0.9% 1,000 ML IV ONE (15:12)
[2022-06-29] MEDS ORDERED: ONDANSETRON 4 MG/2 ML VIAL IVP PRN (20:00)
--- NOTE | 2022-06-29 21:56 | P.HPIM ---
History of Present Illness This is a pleasant 56 years old male with past medical history of Atrial Fibrillation, Cancer, CVA/TIA, Diabetes Mellitus, GERD/Reflux, Hyperlipidemia, Hypertension, Memory Impairment, Osteoarthritis (OA), Sleep Apnea/CPAP/BIPAP,: PROSTATE CANCER, CHRONIC BACK PAIN WITH NERVE DAMAGE LEFT FOOT, STATES HX OF 1 EPISODE OF A-FIB- no meds for it, STATES HIGH BLOODPRESSURE-lisinopril new as of 06/27/22, CONSTIPATION. 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 no cpap machine., ADD/ADHD, Anxiety, Depression Patient presents because of abdominal pain and uncontrolled high blood pressure. He was discharged from the psych unit yesterday for bipolar disorder. He was discharged on Norvasc 10 mg and metoprolol 25 mg daily. Lisinopril was not started. Patient presents because of abdominal pain which woke him up about 5:00 in the morning, he says that his pain was 10/10 in severity when he came in but currently is improved on to 4-5/10 in severity and by the time I saw him it was 0/10 Also he vomited a few times with yellow bowel. He denies diarrhea. He complains from increased frequency of urination but no dysuria He had chest pain but that was resolved now He denies dyspnea. No headache weakness numbness dizziness. No double vision, no blurred vision currently. No slurred speech. He denies smoking alcohol but he uses marijuana. He denies signs symptoms of depression and suicidal ideation, he denies delusion or hallucination Vitals are stable and patient is afebrile. Currently blood pressure is 127/68. Labs including CBC, BMP, liver enzymes are unremarkable. Creatinine 1.29 which is at baseline Urine analysis is negative for infection Viruses are negative including influenza, coronavirus and RSV Chest x-ray: No acute process but there is cardiomegaly CT of the abdomen and pelvis: Small hiatal hernia, duodenum is unremarkable. Distal colonic diverticulosis without diverticulitis. No bowel obstruction. Mild bilateral hydronephrosis with left perinephric and bilateral perirenal fat stranding. The gallbladder is surgically absent EKG: Normal sinus rhythm at [address]-T depression or changes. Review of Systems Review of systems CONSTITUTIONAL: No fever, no malaise, no fatigue. HEENT: No recent visual problems or hearing problems. Denied any sore throat. CARDIOVASCULAR: No orthopnea, PND, no palpitations, no syncope. PULMONARY: No shortness of breath, no cough, no hemoptysis. GASTROINTESTINAL: No diarrhea, no nausea,. Normoactive bowel sounds. NEUROLOGICAL: No headaches, no weakness, no numbness. HEMATOLOGICAL: Denies any bleeding or petechiae. GENITOURINARY: Denies any burning micturition, frequency, or urgency. MUSCULOSKELETAL/RHEUMATOLOGICAL: Denies any joint pain, swelling, or any muscle pain. ENDOCRINE: Denies any polyuria or polydipsia. Past Medical History Past Medical History: Atrial Fibrillation, Cancer, CVA/TIA, Diabetes Mellitus, GERD/Reflux, Hyperlipidemia, Hypertension, Memory Impairment, Musculoskeletal Disorder, Osteoarthritis (OA), Pneumonia, Sleep Apnea/CPAP/BIPAP Additional Past Medical History / Comment(s): PROSTATE CANCER, DIABETES-DIET CONTROLLED, CHRONIC BACK PAIN WITH NERVE DAMAGE LEFT FOOT, STATES HX OF 1 EPISODE OF A-FIB- no meds for it, STATES HIGH BLOODPRESSURE-lisinopril new as of 06/27/22, CONSTIPATION. 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 no cpap machine. History of Any Multi-Drug Resistant Organisms: None Reported Past Surgical History: Appendectomy, Back Surgery, Cholecystectomy, Tonsillectomy Additional Past Surgical History / Comment(s): BACK SURGERY x2, prostate biopsy . 06-16-14 PROSTATECTOMY Past Anesthesia/Blood Transfusion Reactions: No Reported Reaction, Previous Problems w/ Anesthesia Additional Past Anesthesia/Blood Transfusion Reaction / Comment(s): STATES D IFFICULT INTUBATION. Past Psychological History: ADD/ADHD, Anxiety, Depression Additional Psychological History / Comment(s): PTS STATED HE NEEDS TO BE REMINDED TO EAT. Smoking Status: Never smoker Past Alcohol Use History: None Reported Additional Past Alcohol Use History / Comment(s): patient smoked 2-1/2 packs of cigarettes from 1976 to 1989. Past Drug Use History: Marijuana Additional Drug Use History / Comment(s): DAILY USE OF MARIJUANA FOR BACK PAIN. - Past Family History Mother Family Medical History: No Reported History Additional Family Medical History / Comment(s): patient states he was adopted- does not know her history. Father Family Medical History: Myocardial Infarction ([place]) Additional Family Medical History / Comment(s): patient states he was adopted but knows his biological father from "lots of heart problems" Brother(s) Family Medical History: No Reported History Sister(s) Family Medical History: No Reported History Daughter(s) Family Medical History: No Reported History Medications and Allergies Home Medications Medication Instructions Recorded Confirmed Type lisinopriL [Zestril] 20 mg PO HS 06/29/22 06/29/22 History Allergies Allergy/AdvReac Type Severity Reaction Status Date / Time Sulfa (Sulfonamide Allergy Unknown Anaphylaxis Verified 06/29/22 11:14 Antibiotics) Physical Exam Vitals: Vital Signs Temp Pulse Pulse Resp BP BP Pulse Ox 06/29/22 18:45 97.4 F L 83 15 127/68 06/29/22 18:01 97.5 F L 84 18 111/75 97 06/29/22 16:23 88 17 140/90 96 06/29/22 15:03 95 18 128/84 97 06/29/22 14:18 97.7 F 102 H 18 153/88 94 L 06/29/22 13:19 98 F 100 16 163/100 94 L 06/29/22 12:52 91 15 154/92 94 L 06/29/22 12:13 97.2 F L 95 18 172/114 98 06/29/22 11:39 87 18 177/108 96 06/29/22 11:15 87 20 183/134 98 06/29/22 10:27 98.6 F 74 24 218/123 93 L Intake and Output 06/29/22 06/29/22 06/29/22 06:59 14:59 22:59 Other: Weight 102.058 kg 102.058 kg -GENERAL: The patient is alert and oriented x3, not in any acute distress. obese HEENT: Pupils are round and equally reacting to light. EOMI. No scleral icterus. No conjunctival pallor. Normocephalic, atraumatic. No pharyngeal erythema. No thyromegaly. CARDIOVASCULAR: S1 and S2 present. No murmurs, rubs, or gallops. PULMONARY: Chest is clear to auscultation, no wheezing or crackles. -ABDOMEN: Soft, mild upper tenderness in the epigastrium with no rebound tenderness or guarding , nondistended, normoactive bowel sounds. No palpable organomegaly. MUSCULOSKELETAL: No joint swelling or deformity. EXTREMITIES: No cyanosis, clubbing, or pedal edema. NEUROLOGICAL: Gross neurological examination did not reveal any focal deficits. -SKIN: No rashes. no petechiae. Results CBC & Chem 7: 06/29/22 11:06 06/29/22 11:06 Labs: Abnormal Lab Results - Last 24 Hours (Table) 06/29/22 06/29/22 06/29/22 Range/Units 11:06 11:06 11:06 Lymphocytes # 0.9 L (1.0-4.8) k/uL Creatinine 1.29 H (0.66-1.25) mg/dL Glucose 130 H (74-99) mg/dL Urine Protein 2+ H (Negative) Urine Ketones 1+ H (Negative) Urine WBC 12 H (0-5) /hpf Urine Bacteria Rare H (None) /hpf Urine Mucus Rare H (None) /hpf Thrombosis Risk Factor Assmnt - Choose All That Apply Each Factor Represents 1 point: Age 41-60 years Thrombosis Risk Factor Assessment Total Risk Factor Score: 1 Thrombosis Risk Factor Assessment Level: Low Risk Assessment and Plan Assessment: Upper abdominal pain and vomiting, rule out cardiac causes. Could be gastritis, versus reflux esophagitis Hypertension with urgency on admission with mild chest pain, resolved Diabetes mellitus Chronic kidney disease, stage II Hyperlipidemia Paroxysmal atrial fibrillation History of prostate cancer History of sleep apnea Chronic back pain and history was arthritis History of depression, not an active issue Plan: We'll continue with pain medication Continue monitoring blood pressure and to start Norvasc and metoprolol Start Protonix we will give 1 dose of aspirin Start amlodipine 5 mg and metoprolol cardiology consult No GI coverage in this facility during this week. We'll keep monitoring the patient's Labs and medication were reviewed.. Continue same treatment. Continue with symptomatic treatment. Resume home medication. Monitor labs and vitals. DVT and GI prophylaxis. Further recommendations as per clinical course of the patient DVT prophylaxis: Subcutaneous heparin GI Prophylaxis: Pepcid Prognosis is guarded
[2022-06-29] MEDS ORDERED: ASPIRIN 81 MG PO ONE (22:00)
[2022-06-29] MEDS: PANTOPRAZOLE 40 MG/10 ML VIAL IVP SCH (22:19)
[2022-06-29] MEDS: HYDROcodone/APAP 5-325MG 1 EACH TAB PO PRN (22:48)
[2022-06-29] MEDS ORDERED: HEPARIN SODIUM 1,000 UN/ML (10ML VL) IV ONE (23:42)
[2022-06-30] MEDS: HEPARIN SOD,PORK IN 0.45% NACL 25,000 UNIT in 0.45% NACL 1 250ML.BAG IV SCH ×3 (01:01→18:39)
[2022-06-30 01:20] LABS: INR 0.9 (<1.2); Partial Thromboplastin Time 23.1 sec (22.0-30.0); Prothrombin Time 9.9 sec (9.0-12.0)
[2022-06-30 02:08] LABS: Basophils # (A) 0.1 k/uL (0-0.2); Basophils % (A) 1 %; Eosinophils # (A) 0.6 k/uL (0-0.7); Eosinophils % (A) 9 %; HCT 39.2 % (39.0-53.0); HGB 13.5 gm/dL (13.0-17.5); Lymphocytes % (A) 15 %; MCHC 34.6 g/dL (31.0-37.0); MCV 86.8 fL (80.0-100.0); Mean Platelet Volume 7.8; Monocytes # (A) 0.6 k/uL (0-1.0); Monocytes % (A) 9 %; Neutrophils # (A) 4.1 k/uL (1.3-7.7); Neutrophils % (A) 64 %; Platelet Count 198 k/uL (150-450); RBC 4.51 m/uL (4.30-5.90); RDW 13.8 % (11.5-15.5); WBC 6.5 k/uL (3.8-10.6)
[2022-06-30] MEDS: PANTOPRAZOLE 40 MG/10 ML VIAL IVP SCH (08:41)
[2022-06-30] MEDS: METOPROLOL TARTRATE 25 MG TAB PO SCH ×2 (08:41→21:00)
[2022-06-30] MEDS: amLODIPine 5 MG TAB PO SCH (08:41)
[2022-06-30] MEDS: HYDROcodone/APAP 5-325MG 1 EACH TAB PO PRN ×3 (08:46→21:00)
[2022-06-30] MEDS: HEPARIN SODIUM 1,000 UN/ML (10ML VL) IV PRN ×2 (08:54→17:37)
[2022-06-30] MEDS ORDERED: METOPROLOL TARTRATE 12.5 MG TAB PO SCH (09:00)
[2022-06-30 09:50] LABS: African American GFR (CKD) 77.3 (60.0-200.0); Anion Gap 8.5 mmol/L (10.00-18.00); BUN/Creat Ratio 13.67 Ratio (12.00-20.00); Blood Urea Nitrogen 16.4 mg/dL (9.0-27.0); Calcium 8.3 mg/dL (8.7-10.3); Carbon Dioxide 24.5 mmol/L (20.0-27.5); Non-African American GFR(CKD) 66.7 (60.0-200.0)
[2022-06-30 09:51] LABS: Basophils # (A) 0.06 X 10*3/uL (0.00-0.10); Basophils % (A) 0.9 %; Eosinophils # (A) 0.63 X 10*3/uL (0.04-0.35); Eosinophils % (A) 9.3 %; HCT 39.5 % (39.6-50.0); HGB 12.9 g/dL (13.0-17.0); Immature Grans, Automated 0.3 %; Lymphocytes # (A) 0.99 X 10*3/uL (0.90-5.00); Lymphocytes % (A) 14.6 %; MCH 28.5 pg (27.0-32.0); MCHC 32.7 g/dL (32.0-37.0); MCV 87.2 fL (80.0-97.0); Mean Platelet Volume 10.5 fL (9.5-12.2); Monocytes # (A) 0.74 X 10*3/uL (0.20-1.00); Monocytes % (A) 10.9 %; NRBC Per 100 WBC 0 /100 WBCS (0.0-0.0); Neutrophils # (A) 4.32 X 10*3/uL (1.80-7.70); Platelet Count 233 X 10*3/uL (140-440); RBC 4.53 X 10*6/uL (4.40-5.60); RDW 14.2 % (11.5-14.5); WBC 6.76 X 10*3/uL (4.50-10.00)
--- NOTE | 2022-06-30 10:54 | XR ---
EXAMINATION TYPE: XR KUB DATE OF EXAM: 06/30/2022 COMPARISON: CT abdomen pelvis 06/29/2022 HISTORY: Distention TECHNIQUE: Upright view of the abdomen was obtained with 2 radiographs. FINDINGS: Small bowel demonstrates no evidence for dilatation or air fluid levels. Gas and fecal material is seen in non-distended colon. No convincing evidence for pneumoperitoneum. No unusual calcifications. Cholecystectomy clips in the right upper quadrant. The lung bases are clear. The osseous structures are intact. There are changes of the lumbar spine. Osteoarthritic changes of b oth hips Penile prosthesis demonstrated. IMPRESSION: Nonobstructive bowel gas pattern with moderate colonic stool burden. Correlate for constipation.
[2022-06-30] MEDS ORDERED: NITROGLYCERIN SL TABS 0.4 MG TAB SUBLINGUAL PRN (12:09)
[2022-06-30] MEDS ORDERED: ALPRAZolam 0.25 MG TAB PO PRN (12:09)
[2022-06-30] MEDS ORDERED: ASPIRIN 325 MG TAB PO STA (12:09)
[2022-06-30] MEDS ORDERED: ATORVASTATIN 80 MG TAB PO STA (12:09)
[2022-06-30] MEDS ORDERED: ALPRAZolam 0.5 MG TAB PO PRN (12:09)
--- NOTE | 2022-06-30 12:09 | P.CRDCN ---
History of Present Illness History of present illness: HISTORY OF PRESENTING ILLNESS Patient is a pleasant 56-year-old male with a history of atrial fibrillation, prostate cancer with questionable mets to brain, stroke, diabetes mellitus type 2, GERD, hypertension, hyperlipidemia, sleep apnea, ADHD, anxiety, depression, noncompliance. Cardiology's consultation for hypertension, chest pain. Patient presented secondary abdominal pain as well as some vomiting however no constipation or diarrhea. He denies any chest pain or pressure. He had CT abdomen and pelvis which showed small hiatal hernia, diverticulosis without diverticulitis and mild hydronephrosis with perirenal fat stranding. Blood work shows creatinine 1.2, troponin 0.04, 0.026, white blood cell 9.9. He has been having intermittent episodes of chest pain usually worse when he does activities or last few months. He has not followed with a doctor and only recently obtained his insurance card and therefore has not followed up regarding apparent recurrence of prostate cancer with metastasis to the brain and has not been on any medications. He recently went to [facility] a week ago secondary to uncontrolled hypertension and apparently was given prescription for lisinopril which she was taking however only improvements to the low 200s. He is concerned as he has family history of father dying from an [place]. REVIEW OF SYSTEMS At the time of my exam: CONSTITUTIONAL: Denies fever or chills. CARDIOVASCULAR: +chest pain, +shortness of breath, no orthopnea, PND or palpitations. RESPIRATORY: Denies cough. GASTROINTESTINAL: +abdominal pain, diarrhea, constipation, +nausea +vomiting. MUSCULOSKELETAL: Denies myalgias. NEUROLOGIC: Denies numbness, tingling or weakness. ENDOCRINE: Denies fatigue, weight change, polydipsia or polyurina. GENITOURINARY: Denies burning, hematuria or urgency with micturation. HEMATOLOGIC: Denies history of anemia or bleeding. PHYSICAL EXAMINATION Vital signs reviewed. CONSTITUTIONAL: No apparent distress, chronically ill appearing. HEENT: Head is normocephalic. Pupils are equal, round. Sclerae anicteric. Mucous membranes of the mouth are moist. No JVD. No carotid bruit. CHEST EXAMINATION: Lungs are clear to auscultation. No chest wall tenderness is noted on palpation or with deep breathing. HEART EXAMINATION: Regular rate and rhythm. S1, S2 heard. No murmurs, gallops or rub. ABDOMEN: Soft, nontender. Positive bowel sounds. EXTREMITIES: 2+ peripheral pulses, no lower extremity edema and no calf tenderness. NEUROLOGIC EXAMINATION: Patient is awake, alert and oriented x3. ASSESSMENT Hypertensive urgency Non-STEMI somewhat concerning for type I etiology with chest pain worse with exertion Chest pain worse with exertion or last few months concerning for underlying CAD Abdominal pain may be related to kidney process with perinephric fat stranding noted on CT Medical noncompliance History of paroxysmal atrial fibrillation not taking any anticoagulation History of prostate cancer with apparent recurrence and questionable metastasis to the brain per patient Dyspnea on exertion, rule out cardiac source Family history of CAD PLAN Patient with a number of complex issues and complicated by medical noncompliance and not been following up with number of medical problems. Abdominal pain, nausea and vomiting likely related to kidney process with perinephric fat stranding. He does have history of kidney stones in the past per patient. Chest pain with abnormal troponins worse with exertion concerning for cardiac source. Discussed risks and benefits of heart catheterization patient is agreeable. Heart catheterization 07/01/2022. Continue with heparin drip for now. Unclear if patient will be good candidate for intervention, stenting with possible need for biopsy in the future. Obtain CT brain for completeness sake given concern of the testis is so the brain to evaluate if patient would be good candidate for possible stenting. Blood pressure labile and appears improved with metoprolol and Norvasc. Check 2-D echo. Further recommendations to follow. Past Medical History Past Medical History: Atrial Fibrillation, Cancer, CVA/TIA, Diabetes Mellitus, GERD/Reflux, Hyperlipidemia, Hypertension, Memory Impairment, Musculoskeletal Disorder, Osteoarthritis (OA), Pneumonia, Sleep Apnea/CPAP/BIPAP Additional Past Medical History / Comment(s): PROSTATE CANCER, DIABETES-DIET CONTROLLED, CHRONIC BACK PAIN WITH NERVE DAMAGE LEFT FOOT, STATES HX OF 1 EPISODE OF A-FIB- no meds for it, STATES HIGH BLOODPRESSURE-lisinopril new as of 06/27/22, CONSTIPATION. 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 no cpap machine. History of Any Multi-Drug Resistant Organisms: None Reported Past Surgical History: Appendectomy, Back Surgery, Cholecystectomy, Tons illectomy Additional Past Surgical History / Comment(s): BACK SURGERY x2, prostate biopsy . 06-16-14 PROSTATECTOMY Past Anesthesia/Blood Transfusion Reactions: No Reported Reaction, Previous Problems w/ Anesthesia Additional Past Anesthesia/Blood Transfusion Reaction / Comment(s): STATES DIFFICULT INTUBATION. Past Psychological History: ADD/ADHD, Anxiety, Depression Additional Psychological History / Comment(s): PTS STATED HE NEEDS TO BE REMINDED TO EAT. Smoking Status: Never smoker Past Alcohol Use History: None Reported Additional Past Alcohol Use History / Comment(s): patient smoked 2-1/2 packs of cigarettes from 1976 to 1989. Past Drug Use History: Marijuana Additional Drug Use History / Comment(s): DAILY USE OF MARIJUANA FOR BACK PAIN. - Past Family History Mother Family Medical History: No Reported History Additional Family Medical History / Comment(s): patient states he was adopted- does not know her history. Father Family Medical History: Myocardial Infarction ([place]) Additional Family Medical History / Comment(s): patient states he was adopted but knows his biological father from "lots of heart problems" Brother(s) Family Medical History: No Reported History Sister(s) Family Medical History: No Reported History Daughter(s) Family Medical History: No Reported History Medications and Allergies Home Medications Medication Instructions Recorded Confirmed Type lisinopriL [Zestril] 20 mg PO HS 06/29/22 06/29/22 History Allergies Allergy/AdvReac Type Severity Reaction Status Date / Time Sulfa (Sulfonamide Allergy Unknown Anaphylaxis Verified 06/29/22 11:14 Antibiotics) Physical Exam Vitals: Vital Signs Temp Pulse Pulse Resp BP BP Pulse Ox 06/30/22 07:54 98.5 F 76 18 155/84 98 06/30/22 02:13 97.8 F 62 18 141/77 96 06/29/22 20:00 83 15 06/29/22 18:45 97.4 F L 83 15 127/68 06/29/22 18:01 97.5 F L 84 18 111/75 97 06/29/22 16:23 88 17 140/90 96 06/29/22 15:03 95 18 128/84 97 06/29/22 14:18 97.7 F 102 H 18 153/88 94 L 06/29/22 13:19 98 F 100 16 163/100 94 L 06/29/22 12:52 91 15 154/92 94 L 06/29/22 12:13 97.2 F L 95 18 172/114 98 Intake and Output 06/29/22 06/30/22 06/30/22 22:59 06:59 14:59 Intake Total 900 385.429 Balance 900 385.429 Intake: Intake, IV Titration 900 145.429 Amount Heparin Sod,Pork in 0.45% 145.429 NaCl 25,000 unit In 0.45 % NaCl 1 250ml.bag @ 18 UNITS/KG/HR 18.37 mls/hr IV .[id number] [facility] Rx#: [id number] Sodium Chloride 0.9% 1, 900 000 ml @ 75 mls/hr IV . [id number] [facility] Rx#:[id number] Oral 240 Other: Voiding Method Toilet Urinal # Voids 1 Weight 102.058 kg Results 06/30/22 05:41 06/30/22 05:41 Cardiac Enzymes 06/29/22 06/29/22 06/30/22 Range/Units 11:06 22:20 05:41 AST 23 (17-59) U/L Troponin I 0.041 H* 0.026 (0.000-0.034) ng/mL Coagulation 06/30/22 06/30/22 Range/Units 00:15 05:41 PT 9.9 (9.0-12.0) sec APTT 23.1 23.0 (22.0-30.0) sec CBC 06/30/22 06/30/22 Range/Units 00:15 05:41 WBC 6.5 6.76 (3.8-10.6) k/uL RBC 4.51 4.53 (4.30-5.90) m/uL Hgb 13.5 12.9 L (13.0-17.5) gm/dL Hct 39.2 39.5 L (39.0-53.0) % Plt Count 198 233 (150-450) k/uL Comprehensive Metabolic Panel 06/29/22 06/30/22 Range/Units 11:06 05:41 Sodium 140 141 (137-145) mmol/L Potassium 3.6 4.0 (3.5-5.1) mmol/L Chloride 105 108 (98-107) mmol/L Carbon Dioxide 26 24.5 (22-30) mmol/L BUN 18 16.4 (9-20) mg/dL Creatinine 1.29 H 1.2 (0.66-1.25) mg/dL Glucose 130 H 96 (74-99) mg/dL Calcium 8.8 8.3 L (8.4-10.2) mg/dL AST 23 (17-59) U/L ALT 24 (4-49) U/L Alkaline Phosphatase 78 (38-126) U/L Total Protein 7.6 (6.3-8.2) g/dL Albumin 4.5 (3.5-5.0) g/dL Current Medications Generic Name Dose Route Start Last Admin Trade Name Freq PRN Reason Stop Dose Admin Hydrocodone Bitart/Acetaminophen 1 each 06/29/22 19:59 06/30/22 08:46 Hydrocodone/Apap 5-325mg 1 Each Tab PO 1 each Q6HR PRN Administration Pain Amlodipine Besylate 5 mg 06/30/22 09:00 06/30/22 08:41 Amlodipine 5 Mg Tab PO 5 mg DAILY EMILY Administration Heparin Sodium (Porcine) 0 unit 06/29/22 23:42 06/30/22 08:54 Heparin Sodium 1,000 Un/Ml (10ml Vl) IV 8,160 unit PER PROTOCOL PRN Administration Low PTT Protocol Heparin Sodium/Sodium Chloride 250 mls @ 18.37 mls/hr 06/30/22 00:00 06/30/22 08:56 25,000 unit/ Sodium Chloride IV 22 units/kg/hr .[id number] EMILY 22.453 mls/hr Titration Protocol 18 UNITS/KG/HR Metoprolol Tartrate 25 mg 06/30/22 09:00 06/30/22 08:41 Metoprolol Tartrate 25 Mg Tab PO 25 mg BID EMILY Administration Ondansetron HCl 4 mg 06/29/22 20:00 Ondansetron 4 Mg/2 Ml Vial IVP Q6HR PRN Nausea And Vomiting Pantoprazole Sodium 40 mg 06/29/22 22:00 06/30/22 08:41 Pantoprazole 40 Mg/10 Ml Vial IVP 40 mg DAILY EMILY Administration Intake and Output 06/29/22 06/30/22 06/30/22 22:59 06:59 14:59 Intake Total 900 385.429 Balance 900 385.429 Intake: Intake, IV Titration 900 145.429 Amount Heparin Sod,Pork in 0.45% 145.429 NaCl 25,000 unit In 0.45 % NaCl 1 250ml.bag @ 18 UNITS/KG/HR 18.37 mls/hr IV .[id number] [facility] Rx#: [id number] Sodium Chloride 0.9% 1, 900 000 ml @ 75 mls/hr IV . [id number] [facility] Rx#:[id number] Oral 240 Other: Voiding Method Toilet Urinal # Voids 1 Weight 102.058 kg 06/30/22 05:41 06/30/22 05:41
[2022-06-30] MEDS: DOCUSATE 100 MG CAP PO SCH ×2 (13:25→21:01)
--- NOTE | 2022-06-30 14:12 | CT ---
EXAMINATION TYPE: CT brain wo con CT DLP: 1116.0 mGycm, Automated exposure control for dose reduction was used. DATE OF EXAM: 06/30/2022 2:05 PM COMPARISON: CT brain 01/11/2019, MR brain 12/25/2018. CLINICAL INDICATION:Male, 56 years old with history of history of CVA, apparent mets to brain, histor y of CVA, apparent mets to brain TECHNIQUE: Brain: Axial CT images of the brain were obtained with coronal and sagittal reformats created and rev iewed. Contrast used: None. Oral contrast used: None. FINDINGS: Brain: Extra-axial spaces: No abnormal extra-axial fluid collections. Ventricular system: Within normal limits Cerebral parenchyma: No acute intraparenchymal hemorrhage or mass effect. The alexander-white junction is well differentiated. Scattered hypoattenuating areas are seen within the white matter. Cerebellum: Unremarkable. Mass effect: No evidence of midline shift. Intracranial vasculature: unremarkable Soft tissues: Normal. Calvarium/osseous structures: No depressed skull fracture. Paranasal sinuses and mastoid air cells: Mild scattered paranasal sinus disease.. Mastoid air cells a re Clear Visualized orbits: Orbital contents are intact. IMPRESSION: 1. No acute intracranial process. 2. Nonspecific white matter changes, likely secondary to chronic small vessel ischemic disease.
--- NOTE | 2022-06-30 15:55 | P.GSCN ---
History of Present Illness Consult date: 06/30/22 Reason for Consult: Hydronephrosis Requesting physician: Luis Enrique E Sheet History of present illness: The patient is a 56-year-old white male with a history of urolithiasis. He experienced abdominal and flank pain yesterday. Associated symptoms include nausea, vomiting, and chills. He presented to the ER and was admitted. At that time, he was found to have a low-grade fever, but has remained afebrile since then. CT scan shows nonobstructing right renal calculi measuring up to 2 mm in size along with bilateral mild hydronephrosis and left perinephric stranding. No ureteral calculi are seen. He reports slight dysuria. He denies gross hematuria. The patient underwent a robotic-assisted laparoscopic prostatectomy for prostate cancer in June 2014. Pathologically, he had organ confined [place] 7 (3+4) adenocarcinoma. He has subsequently undergone insertion of an inflatable penile prosthesis. Review of Systems - Constitutional Reports chills, Reports fever - Gastrointestinal Reports abdominal pain, Reports nausea, Reports vomiting - Genitourinary Reports dysuria, Reports flank pain, Reports kidney stones, Denies hematuria Past Medical History Past Medical History: Atrial Fibrillation, Cancer, CVA/TIA, Diabetes Mellitus, GERD/Reflux, Hyperlipidemia, Hypertension, Memory Impairment, Musculoskeletal Disorder, Osteoarthritis (OA), Pneumonia, Sleep Apnea/CPAP/BIPAP Additional Past Medical History / Comment(s): PROSTATE CANCER, DIABETES-DIET CONTROLLED, CHRONIC BACK PAIN WITH NERVE DAMAGE LEFT FOOT, STATES HX OF 1 EPISODE OF A-FIB- no meds for it, STATES HIGH BLOODPRESSURE-lisinopril new as of 06/27/22, CONSTIPATION. 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 no cpap machine. History of Any Multi-Drug Resistant Organisms: None Reported Past Surgical History: Appendectomy, Back Surgery, Cholecystectomy, Tonsillectomy Additional Past Surgical History / Comment(s): BACK SURGERY x2, prostate biopsy . 06-16-14 PROSTATECTOMY Past Anesthesia/Blood Transfusion Reactions: No Reported Reaction, Previous Problems w/ Anesthesia Additional Past Anesthesia/Blood Transfusion Reaction / Comm: STATES DIFFICULT INTUBATION. Past Psychological History: ADD/ADHD, Anxiety, Depression Additional Psychological History / Comment(s): PTS STATED HE NEEDS TO BE REMINDED TO EAT. Smoking Status: Never smoker Past Alcohol Use History: None Reported Additional Past Alcohol Use History / Comment(s): patient smoked 2-1/2 packs of cigarettes from 1976 to 1989. Past Drug Use History: Marijuana Additional Drug Use History / Comment(s): DAILY USE OF MARIJUANA FOR BACK PAIN. - Past Family History Mother Family Medical History: No Reported History Additional Family Medical History / Comment(s): patient states he was adopted- does not know her history. Father Family Medical History: Myocardial Infarction (NH) Additional Family Medical History / Comment(s): patient states he was adopted but knows his biological father from "lots of heart problems" Brother(s) Family Medical History: No Reported History Sister(s) Family Medical History: No Reported History Daughter(s) Family Medical History: No Reported History Medications and Allergies Home Medications Medication Instructions Recorded Confirmed Type lisinopriL [Zestril] 20 mg PO HS 06/29/22 06/29/22 History Allergies Allergy/AdvReac Type Severity Reaction Status Date / Time Sulfa (Sulfonamide Allergy Unknown Anaphylaxis Verified 06/29/22 11:14 Antibiotics) Surgical - Exam Vital Signs Temp Pulse Resp BP Pulse Ox 98.6 F 74 24 218/123 93 L 06/29/22 10:27 06/29/22 10:27 06/29/22 10:27 06/29/22 10:27 06/29/22 10:27 - General well developed, well nourished, no distress - Respiratory normal respiratory effort - Abdomen Soft, non-distended, no mass. Diffuse mild tenderness, no guarding or rebound. - Genitourinary Normal phallus, normal urethral meatus. An inflatable penile prosthesis is palpable. The components are all palpably normal. There is no evidence of prosthetic erosion or infection. The scrotum and testes are normal. - Psychiatric oriented to time, oriented to person, oriented to place, speech is normal, me cristóbal intact Results - Labs 06/30/22 05:41 06/30/22 05:41 Abnormal Lab Results - Last 24 Hours (Table) 06/29/22 06/29/22 06/29/22 Range/Units 11:06 11:06 22:20 Hgb (13.0-17.0) g/dL Hct (39.6-50.0) % Eosinophils # (0.04-0.35) X 10*3/uL Anion Gap (10.00-18.00) mmol/L Creatinine 1.29 H (0.66-1.25) mg/dL Glucose 130 H (74-99) mg/dL Calcium (8.7-10.3) mg/dL Troponin I 0.041 H* (0.000-0.034) ng/mL Urine Protein 2+ H (Negative) Urine Ketones 1+ H (Negative) Urine WBC 12 H (0-5) /hpf Urine Bacteria Rare H (None) /hpf Urine Mucus Rare H (None) /hpf 06/30/22 06/30/22 Range/Units 05:41 05:41 Hgb 12.9 L (13.0-17.0) g/dL Hct 39.5 L (39.6-50.0) % Eosinophils # 0.63 H (0.04-0.35) X 10*3/uL Anion Gap 8.50 L (10.00-18.00) mmol/L Creatinine (0.66-1.25) mg/dL Glucose (74-99) mg/dL Calcium 8.3 L (8.7-10.3) mg/dL Troponin I (0.000-0.034) ng/mL Urine Protein (Negative) Urine Ketones (Negative) Urine WBC (0-5) /hpf Urine Bacteria (None) /hpf Urine Mucus (None) /hpf Diabetes panel 06/29/22 06/30/22 Range/Units 11:06 05:41 Sodium 140 141 (137-145) mmol/L Potassium 3.6 4.0 (3.5-5.1) mmol/L Chloride 105 108 (98-107) mmol/L Carbon Dioxide 26 24.5 (22-30) mmol/L BUN 18 16.4 (9-20) mg/dL Creatinine 1.29 H 1.2 (0.66-1.25) mg/dL Glucose 130 H 96 (74-99) mg/dL Calcium 8.8 8.3 L (8.4-10.2) mg/dL AST 23 (17-59) U/L ALT 24 (4-49) U/L Alkaline Phosphatase 78 (38-126) U/L Total Protein 7.6 (6.3-8.2) g/dL Albumin 4.5 (3.5-5.0) g/dL Calcium panel 06/29/22 06/30/22 Range/Units 11:06 05:41 Calcium 8.8 8.3 L (8.4-10.2) mg/dL Albumin 4.5 (3.5-5.0) g/dL Pituitary panel 06/29/22 06/30/22 Range/Units 11:06 05:41 Sodium 140 141 (137-145) mmol/L Potassium 3.6 4.0 (3.5-5.1) mmol/L Chloride 105 108 (98-107) mmol/L Carbon Dioxide 26 24.5 (22-30) mmol/L BUN 18 16.4 (9-20) mg/dL Creatinine 1.29 H 1.2 (0.66-1.25) mg/dL Glucose 130 H 96 (74-99) mg/dL Calcium 8.8 8.3 L (8.4-10.2) mg/dL Adrenal panel 06/29/22 06/30/22 Range/Units 11:06 05:41 Sodium 140 141 (137-145) mmol/L Potassium 3.6 4.0 (3.5-5.1) mmol/L Chloride 105 108 (98-107) mmol/L Carbon Dioxide 26 24.5 (22-30) mmol/L BUN 18 16.4 (9-20) mg/dL Creatinine 1.29 H 1.2 (0.66-1.25) mg/dL Glucose 130 H 96 (74-99) mg/dL Calcium 8.8 8.3 L (8.4-10.2) mg/dL Total Bilirubin 0.8 (0.2-1.3) mg/dL AST 23 (17-59) U/L ALT 24 (4-49) U/L Alkaline Phosphatase 78 (38-126) U/L Total Protein 7.6 (6.3-8.2) g/dL Albumin 4.5 (3.5-5.0) g/dL - Imaging CT scan - abdomen: report reviewed, image reviewed Assessment and Plan Assessment: The patient has mild bilateral hydronephrosis. There is no evidence of an obstructing ureteral calculus. Infection may be an underlying cause. The status of his prostate cancer is unknown, as he has failed to keep follow-up appointments due to fear of hearing bad news. (1) Hydronephrosis Current Visit: Yes Status: Acute Code(s): N13.30 - UNSPECIFIED HYDRONEPHROSIS SNOMED Code(s): 70142276 (2) Calculus of kidney Current Visit: Yes Status: Acute Code(s): N20.0 - CALCULUS OF KIDNEY SNOM ED Code(s): 06132687 (3) Malignant neoplasm of prostate Current Visit: Yes Status: Acute Code(s): C61 - MALIGNANT NEOPLASM OF PROSTATE SNOMED Code(s): 889963798 Plan: I have ordered a PSA level, as well as urine culture and sensitivity. In the meantime, I would suggest that Mr. Lam be treated with broad-spectrum antibiotics. Time with Patient: Greater than 30
--- NOTE | 2022-06-30 20:07 | P.PN ---
Subjective This is a pleasant 56 years old male with past medical history of Atrial Fibrillation, Cancer, CVA/TIA, Diabetes Mellitus, GERD/Reflux, Hyperlipidemia, Hypertension, Memory Impairment, Osteoarthritis (OA), Sleep Apnea/CPAP/BIPAP,: PROSTATE CANCER, CHRONIC BACK PAIN WITH NERVE DAMAGE LEFT FOOT, STATES HX OF 1 EPISODE OF A-FIB- no meds for it, STATES HIGH BLOODPRESSURE-lisinopril new as of 06/27/22, CONSTIPATION. 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 no cpap machine., ADD/ADHD, Anxiety, Depression Patient presents because of abdominal pain and uncontrolled high blood pressure. He was discharged from the psych unit yesterday for bipolar disorder. He was discharged on Norvasc 10 mg and metoprolol 25 mg daily. Lisinopril was not started. Patient presents because of abdominal pain which woke him up about 5:00 in the morning, he says that his pain was 10/10 in severity when he came in but currently is improved on to 4-5/10 in severity and by the time I saw him it was 0/10 Also he vomited a few times with yellow bowel. He denies diarrhea. He complains from increased frequency of urination but no dysuria He had chest pain but that was resolved now He denies dyspnea. No headache weakness numbness dizziness. No double vision, no blurred vision currently. No slurred speech. He denies smoking alcohol but he uses marijuana. He denies signs symptoms of depression and suicidal ideation, he denies delusion or hallucination Vitals are stable and patient is afebrile. Currently blood pressure is 127/68. Labs including CBC, BMP, liver enzymes are unremarkable. Creatinine 1.29 which is at baseline Urine analysis is negative for infection Viruses are negative including influenza, coronavirus and RSV Chest x-ray: No acute process but there is cardiomegaly CT of the abdomen and pelvis: Small hiatal hernia, duodenum is unremarkable. Distal colonic diverticulosis without diverticulitis. No bowel obstruction. Mild bilateral hydronephrosis with left perinephric and bilateral perirenal fat stranding. The gallbladder is surgically absent EKG: Normal sinus rhythm at [address]-T depression or changes. 06/30/2022 Patient lying in bed, no much of his chest pain although he states this comes and go, he merely complaining of from bilateral abdominal pain and discomfort which mostly related to his symptoms of hydronephrosis.. He has history of prostate cancer possibly with prostatectomy and he has penile device and x-ray. Today because of his abdominal pain and distention reordered KUB which was negative for acute process, most likely he has fatty abdomen. Patient's kept on heparin drip for suspicions STEMI, CARDIOLOGY INPUT IS APPRECI ATED, CT OF THE BRAIN IS NEGATIVE. AND AGREE WITH CARDIOLOGY TEAM COMPLIANCE WILL BE AN ISSUE WITH HIM. PATIENT MAY GO FOR CARDIAC CATH TOMORROW BLOOD PRESSURE IS BETTER CONTROLLED WITH NORVASC AND METOPROLOL Review of systems CONSTITUTIONAL: No fever, no malaise, no fatigue. HEENT: No recent visual problems or hearing problems. Denied any sore throat. CARDIOVASCULAR: No orthopnea, PND, no palpitations, no syncope. PULMONARY: No shortness of breath, no cough, no hemoptysis. NEUROLOGICAL: No headaches, no weakness, no numbness. HEMATOLOGICAL: Denies any bleeding or petechiae. GENITOURINARY: Denies any burning micturition, frequency, or urgency. MUSCULOSKELETAL/RHEUMATOLOGICAL: Denies any joint pain, swelling, or any muscle pain. ENDOCRINE: Denies any polyuria or polydipsia. Active Medications Generic Name Dose Route Start Last Admin Trade Name Freq PRN Reason Stop Dose Admin Hydrocodone Bitart/Acetaminophen 1 each 06/29/22 19:59 06/30/22 15:12 Hydrocodone/Apap 5-325mg 1 Each Tab PO 1 each Q6HR PRN Administration Pain Alprazolam 0.25 mg 06/30/22 12:09 Alprazolam 0.25 Mg Tab PO Q6HR PRN Mild Anxiety Alprazolam 0.5 mg 06/30/22 12:09 Alprazolam 0.5 Mg Tab PO Q6HR PRN Moderate Anxiety Amlodipine Besylate 5 mg 06/30/22 09:00 06/30/22 08:41 Amlodipine 5 Mg Tab PO 5 mg DAILY EMILY Administration Docusate Sodium 100 mg 06/30/22 13:15 06/30/22 13:25 Docusate 100 Mg Cap PO 100 mg BID EMILY Administration Heparin Sodium (Porcine) 0 unit 06/29/22 23:42 06/30/22 17:37 Heparin Sodium 1,000 Un/Ml (10ml Vl) IV 8,160 unit PER PROTOCOL PRN Administration Low PTT Protocol Heparin Sodium/Sodium Chloride 250 mls @ 18.37 mls/hr 06/30/22 00:00 06/30/22 18:39 25,000 unit/ Sodium Chloride IV 26 units/kg/hr .[id number] EMILY 26.535 mls/hr Administration Protocol 18 UNITS/KG/HR Heparin Sodium (Porcine) 10, 1,001 mls @ 999 mls/hr 07/01/22 07:00 000 unit/ Sodium Chloride IRRIGATION 07/01/22 23:00 ONCE PRN INTRA-OP Heparin Sodium (Porcine) 2,500 250.5 mls @ 250 mls/hr 07/01/22 07:00 unit/ Sodium Chloride IRRIGATION 07/01/22 23:00 ONCE PRN INTRA-OP Metoprolol Tartrate 25 mg 06/30/22 09:00 06/30/22 08:41 Metoprolol Tartrate 25 Mg Tab PO 25 mg BID EMILY Administration Nitroglycerin 0.4 mg 06/30/22 12:09 Nitroglycerin Sl Tabs 0.4 Mg Tab SUBLINGUAL Q5M PRN Chest Pain Ondansetron HCl 4 mg 06/29/22 20:00 Ondansetron 4 Mg/2 Ml Vial IVP Q6HR PRN Nausea And Vomiting Pantoprazole Sodium 40 mg 07/01/22 09:00 Pantoprazole 40 Mg Tablet PO DAILY [facility] Objective - Vital Signs Vital signs: Vital Signs Temp 98.5 F 06/30/22 07:54 Pulse 76 06/30/22 07:54 Resp 18 06/30/22 07:54 BP 155/84 06/30/22 07:54 Pulse Ox 98 06/30/22 07:54 FiO2 Intake & Output 06/29/22 06/30/22 06/30/22 18:59 06:59 18:59 Intake Total 900 145.429 Balance 900 145.429 Weight 102.058 kg Intake: Intake, IV Titration 900 145.429 Amount Heparin Sod,Pork in 0.45% 145.429 NaCl 25,000 unit In 0.45 % NaCl 1 250ml.bag @ 18 UNITS/KG/HR 18.37 mls/hr IV .[id number] [facility] Rx#: [id number] Sodium Chloride 0.9% 1, 900 000 ml @ 75 mls/hr IV . [id number] Rx#:[id number] - Exam -GENERAL: The patient is alert and oriented x3, not in any acute distress. Obese HEENT: Pupils are round and equally reacting to light. EOMI. No scleral icterus. No conjunctival pallor. Normocephalic, atraumatic. No pharyngeal erythema. No thyromegaly. CARDIOVASCULAR: S1 and S2 present. No murmurs, rubs, or gallops. PULMONARY: Chest is clear to auscultation, no wheezing or crackles. ABDOMEN: Soft, nontender, nondistended, normoactive bowel sounds. No palpable organomegaly. MUSCULOSKELETAL: No joint swelling or deformity. EXTREMITIES: No cyanosis, clubbing, or pedal edema. NEUROLOGICAL: Gross neurological examination did not reveal any focal deficits. SKIN: No rashes. no petechiae. - Labs CBC & Chem 7: 06/30/22 05:41 06/30/22 05:41 Labs: Abnormal Lab Results - Last 24 Hours (Table) 06/29/22 06/29/22 06/29/22 Range/Units 11:06 11:06 11:06 Hgb (13.0-17.0) g/dL Hct (39.6-50.0) % Lymphocytes # 0.9 L (1.0-4.8) k/uL Eosinophils # (0.04-0.35) X 10*3/uL Anion Gap (10.00-18.00) mmol/L Creatinine 1.29 H (0.66-1.25) mg/dL Glucose 130 H (74-99) mg/dL Calcium (8.7-10.3) mg/dL Troponin I (0.000-0.034) ng/mL Urine Protein 2+ H (Negative) Urine Ketones 1+ H (Negative) Urine WBC 12 H (0-5) /hpf Urine Bacteria Rare H (None) /hpf Urine Mucus Rare H (None) /hpf 06/29/22 06/30/22 06/30/22 Range/Units 22:20 05:41 05:41 Hgb 12.9 L (13.0-17.0) g/dL Hct 39.5 L (39.6-50.0) % Lymphocytes # (1.0-4.8) k/uL Eosinophils # 0.63 H (0.04-0.35) X 10*3/uL Anion Gap 8.50 L (10.00-18.00) mmol/L Creatinine (0.66-1.25) mg/dL Glucose (74-99) mg/dL Calcium 8.3 L (8.7-10.3) mg/dL Troponin I 0.041 H* (0.000-0.034) ng/mL Urine Protein (Negative) Urine Ketones (Negative) Urine WBC (0-5) /hpf Urine Bacteria (None) /hpf Urine Mucus (None) /hpf Assessment and Plan Assessment: None STEMI Bilateral symmetrical abdominal pain related to his bilateral hydronephrosis Hypertension with urgency on admission with mild chest pain, resolved. Blood pressure is better controlled now Diabetes mellitus Chronic kidney disease, stage II Hyperlipidemia Paroxysmal atrial fibrillation, not on anticoagulation History of prostate cancer History of sleep apnea Chronic back pain and history was arthritis History of depression, not an active issue Noncompliance Plan: Continue with heparin drip Cardiology input is appreciated, patient may need cardiac cath Urology input is appreciated continue with amlodipine 5 mg and metoprolol Labs and medication were reviewed.. Continue same treatment. Continue with symptomatic treatment. Resume home medication. Monitor labs and vitals. DVT and GI prophylaxis. Further recommendations as per clinical course of the patient DVT prophylaxis: heparin GI Prophylaxis: Pepcid Prognosis is guarded
[2022-07-01] MEDS: HEPARIN SODIUM 1,000 UN/ML (10ML VL) IV PRN (02:31)
[2022-07-01] MEDS: HEPARIN SOD,PORK IN 0.45% NACL 25,000 UNIT in 0.45% NACL 1 250ML.BAG IV SCH ×2 (02:35→18:39)
[2022-07-01] MEDS ORDERED: HEPARIN SODIUM,PORCINE 2,500 UNIT in SODIUM CHLORIDE 0.9% 250 ML IRRIGATION PRN (07:00)
[2022-07-01] MEDS ORDERED: HEPARIN SODIUM,PORCINE 10,000 UNIT in SODIUM CHLORIDE 0.9% 1,000 ML IRRIGATION PRN (07:00)
[2022-07-01] MEDS: METOPROLOL TARTRATE 25 MG TAB PO SCH ×2 (08:33→20:23)
[2022-07-01] MEDS: amLODIPine 5 MG TAB PO SCH (08:33)
[2022-07-01] MEDS: DOCUSATE 100 MG CAP PO SCH ×2 (08:33→20:23)
[2022-07-01] MEDS: PANTOPRAZOLE 40 MG TABLET PO SCH (08:33)
[2022-07-01] MEDS: HYDROcodone/APAP 5-325MG 1 EACH TAB PO PRN ×3 (08:39→20:26)
--- NOTE | 2022-07-01 10:02 | P.PN ---
Subjective Progress Note Date: 07/01/22 Principal diagnosis: Hydronephrosis, abdominal and flank pain The patient is a 56-year-old white male with a history of urolithiasis. He experienced abdominal and flank pain yesterday. Associated symptoms include nausea, vomiting, and chills. He presented to the ER and was admitted. At that time, he was found to have a low-grade fever, but has remained afebrile since then. CT scan shows nonobstructing right renal calculi measuring up to 2 mm in size along with bilateral mild hydronephrosis and left perinephric stranding. No ureteral calculi are seen. He reports slight dysuria. He denies gross hematuria. The patient underwent a robotic-assisted laparoscopic prostatectomy for prostate cancer in June 2014. Pathologically, he had organ confined [place] 7 (3+4) ad enocarcinoma. He has subsequently undergone insertion of an inflatable penile prosthesis. Objective - Vital Signs Vital signs: Vital Signs Temp 98.2 F 07/01/22 07:27 Pulse 67 07/01/22 07:27 Resp 19 07/01/22 07:27 BP 154/100 07/01/22 07:27 Pulse Ox 98 07/01/22 07:27 FiO2 97 06/30/22 15:16 Intake & Output 06/30/22 07/01/22 07/01/22 18:59 06:59 18:59 Intake Total 490.000 800.783 217.891 Balance 490.000 800.783 217.891 Intake: Intake, IV Titration 250.000 210.783 217.891 Amount Heparin Sod,Pork in 0.45% 250.000 210.783 217.891 NaCl 25,000 unit In 0.45 % NaCl 1 250ml.bag @ 18 UNITS/KG/HR 18.37 mls/hr IV .[id number] [facility] Rx#: [id number] Oral 240 590 Other: Voiding Method Toilet Toilet Urinal Urinal # Voids 1 2 - Constitutional General appearance: Present: average body habitus, no acute distress - Respiratory Details: Normal respiratory effort, non-labored breathing. - Gastrointestinal Gastrointestinal Comment(s): Soft, non-distended. Diffuse mild tenderness, no guarding or rebound - Psychiatric Psychiatric: Present: A&O x's 3 - Labs CBC & Chem 7: 06/30/22 05:41 06/30/22 05:41 Labs: Abnormal Lab Results - Last 24 Hours (Table) 07/01/22 Range/Units 07:21 APTT 87.2 H (22.0-30.0) sec Microbiology - Last 24 Hours (Table) 06/29/22 11:06 Blood Culture - Preliminary Blood No Growth after 24 hours 06/29/22 11:06 Blood Culture - Preliminary Blood No Growth after 24 hours Assessment and Plan Assessment: The patient has mild bilateral hydronephrosis. There is no evidence of an obstructing ureteral calculus. Infection may be an underlying cause. A urine culture was sent. He was reassured that his PSA level is 0, indicating no evidence of recurrent prostate cancer. (1) Hydronephrosis Current Visit: Yes Status: Acute Code(s): N13.30 - UNSPECIFIED HYDRONEPHROSIS SNOMED Code(s): 51730830 (2) Calculus of kidney Current Visit: Yes Status: Acute Code(s): N20.0 - CALCULUS OF KIDNEY SNOMED Code(s): 44059039 (3) Malignant neoplasm of prostate Current Visit: Yes Status: Acute Code(s): C61 - MALIGNANT NEOPLASM OF PROSTA TE SNOMED Code(s): 834438247 Plan: - Await urine culture results - Consider treatment with broad-spectrum antibiotics pending the urine culture result - Check postvoid residual to ensure adequate bladder emptying
--- NOTE | 2022-07-01 10:02 | CA ---
Transthoracic Echo Report Name: Tony Lam Age: 56 Gender: M : 1965 Exam Date: 06/30/2022 13:02 Exam Location: [place] Echo Ht (in): 67 Wt (lb): 225 Ordering Physician: Eliazar Barnett DO ([email or web address]) Attending/Referring Phys: Lipstick Molder Leti Reaves RDCS Procedure CPT: Indications: re: NSTEMI Cardiac Hx: Technical Quality: Fair Contrast 1: Total Dose (mL): Contrast 2: Total Dose (mL): MEASUREMENTS (Male / Female) Normal Values 2D ECHO LV Diastolic Diameter PLAX 4.6 cm 4.2 - 5.9 / 3.9 - 5.3 cm LV Systolic Diameter PLAX 3.0 cm IVS Diastolic Thickness 1.9 cm 0.6 - 1.0 / 0.6 - 0.9 cm LVPW Diastolic Thickness 1.8 cm 0.6 - 1.0 / 0.6 - 0.9 cm LV Relative Wall Thickness 0.8 RV Internal Dim ED PLAX 4.2 cm LA Volume 106.7 cm??? 18 - 58 / 22 - 52 cm??? M-MODE LV Diastolic Diameter MM 6.0 cm 4.2 - 5.9 / 3.9 - 5.3 cm LV Systolic Diameter MM 4.4 cm LV Cardiac Index MM Teich 3142.7 cm???/min???m??? IVS Diastolic Thickness MM 1.3 cm 0.6 - 1.0 / 0.6 - 0.9 cm LVPW Diastolic Thickness MM 1.4 cm 0.6 - 1.0 / 0.6 - 0.9 cm LV Relative Wall Thickness MM 0.5 0.24 - 0.42 / 0.22 - 0.42 LV Mass Index MM 171.5 g/m??? 49 - 115 / 43 - 95 g/m??? Aortic Root Diameter MM 3.3 cm LA Systolic Diameter MM 3.9 cm LA Ao Ratio MM 1.2 AV Cusp Separation MM 2.4 cm DOPPLER AV Peak Velocity 118.9 cm/s AV Peak Gradient 5.7 mmHg AV Mean Velocity 81.2 cm/s AV Mean Gradient 3.0 mmHg AV Velocity Time Integral 20.7 cm LVOT Peak Velocity 99.0 cm/s LVOT Peak Gradient 3.9 mmHg LVOT Velocity Time Integral 19.8 cm MV Area PHT 2.9 cm??? Mitral E Point Velocity 59.3 cm/s Mitral A Point Velocity 55.2 cm/s Mitral E to A Ratio 1.1 MV Deceleration Time 263.5 ms MV E' Velocity 5.1 cm/s Mitral E to MV E' Ratio 11.6 TR Peak Velocity 186.0 cm/s TR Peak Gradient 13.8 mmHg Right Ventricular Systolic Press 18.8 mmHg FINDINGS Left Ventricle Moderate to severely increased left ventricular wall thickness. Mild left ventricular dilatation. Mildly reduced global left ventricular systolic function. Left ventricular ejection fraction is estimated at 45-50 %. Right Ventricle Mild right ventricular dilatation. Right ventricular systolic pressure within normal limits. Right Atrium Right atrial dilatation. Left Atrium Severely increased left atrial volume. Mildly increased left atrial area. Mitral Valve Structurally normal mitral valve. Moderate mitral regurgitation. Aortic Valve Trileaflet aortic valve. Trace aortic regurgitation. Tricuspid Valve Structurally normal tricuspid valve. Mild tricuspid regurgitation. Pulmonic Valve Structurally normal pulmonic valve. Trace pulmonic regurgitation. Pericardium Minimal pericardial effusion (normal variant). Aorta Normal size aortic root and proximal ascending aorta. CONCLUSIONS Moderate to severely increased left ventricular wall thickness Left ventricular ejection fraction 45-50% Mild right ventricular dilation Moderately dilated left atrium Moderate mitral regurgitation Mild tricuspid regurgitation RVSP 18 Previewed by: Dr. Eliazar Barnett DO (Electronically Signed) Final Date: 01 July 2022 10:01
[2022-07-01] MEDS ORDERED: VERAPAMIL 2.5 MG/ML 2 ML AMP ONE (10:26)
[2022-07-01] MEDS ORDERED: fentaNYL (PF) 50 MCG/ML 2 ML AMP ONE (10:26)
[2022-07-01] MEDS ORDERED: HEPARIN SODIUM 1,000 UN/ML (10ML VL) ONE (10:27)
[2022-07-01] MEDS ORDERED: IV FLUID CONTINUATION 800 ML IV ONE (10:56)
[2022-07-01] MEDS ORDERED: fentaNYL (PF) 50 MCG/ML 2 ML AMP IV ONE (11:20)
[2022-07-01] MEDS ORDERED: MIDAZOLAM 2 MG/2 ML VIAL IV ONE (11:20)
[2022-07-01] MEDS ORDERED: LIDOCAINE 1% INJ 10MG/ML (5 ML VIAL-PF) SQ ONE (11:22)
[2022-07-01] MEDS ORDERED: VERAPAMIL SYRINGE (5 MG/10 ML) INTRAARTER ONE (11:23)
[2022-07-01] MEDS: HEPARIN SODIUM 1,000 UN/ML (10ML VL) IV ONE ×2 (11:26→11:41)
[2022-07-01] MEDS ORDERED: IOPAMIDOL-370 125ML BTL INJ ONE (11:51)
--- NOTE | 2022-07-01 12:35 | P.CARDCATH ---
Description of Procedure: PROCEDURES PERFORMED: Left heart catheterization, bilateral coronary angiography, iFR LAD, circumflex, RCA INDICATION: NSTEMI CONSENT:I have discussed the risks, benefits and alternative therapies for the above-mentioned procedure and for both sedation/analgesia as well as necessary blood product administration, if indicated, as they pertain to this patient. The patient has indicated understanding and acceptance of the risks and procedures discussed. PROCEDURE: After the risks, benefits and alternatives of the above mentioned procedure explained in detail with the patient, informed consent was obtained. Patient was taken to the catheterization lab and prepped and draped in usual fashion. 1% lidocaine was used to anesthetize the right radial artery. A 6- Samoan sheath was placed in the right radial artery using modified Seldinger technique. Left coronary angiography was performed with a 5-Samoan JL 3.5 catheter and right coronary angiography was performed with a 5-Samoan JR5 catheter in various views. A 5-Samoan FR5 catheter was inserted into the left ventricle and pressure measurements were obtained. The decision was made to perform iFR of the LAD, circumflex and RCA. Using the diagnostic FL 3.5 catheter, a 0.014 PressureWire was advanced in or malaise in the left main. The wire was then advanced 1 cm distal to the circumflex as well as LAD lesions and iFR was performed and was normal at 0.98 and the circumflex, 0.92 and LAD. Using the FR5 diagnostic catheter the wire was then advanced into the proximal RCA and normalize. It was then advanced 1 cm distal to the RCA lesion and iFR is normal at 0.97. The right radial sheath was removed and a TR band was placed with hemostasis achieved. The patient tolerated the procedure well. Patient was transported back to the post catheterization holding area in stable condition. Conscious Sedation: Patient was monitored under the direct supervision of myself for conscious sedation using Versed and fentanyl for a total duration of 28 minutes HEMODYNAMICS: Aorta: 144/92 LV: 141/5, LVEDP 26 SELECTIVE CORONARY ARTERIOGRAPHY: LEFT MAIN: The left main is a large caliber vessel which bifurcates into the LAD and circumflex. There is no significant stenosis. LEFT ANTERIOR DESCENDING CORONARY ARTERY: LAD is a large caliber vessel which wraps around to the apex. There is proximal LAD 40-50% stenosis in the mid LAD 30% stenosis LEFT CIRCUMFLEX CORONARY ARTERY: Left circumflex is a moderate caliber vessel with proximal circumflex 60% stenosis and otherwise mild luminal irregularities RIGHT CORONARY ARTERY: The right coronary artery is a large caliber vessel which gives off a PDA and PLV branch and is the dominant vessel. There is a proximal RCA 50-60% stenosis and a distal RCA 40-50% stenosis. FINAL IMPRESSION: 1. Mild to moderate CAD as described above including proximal LAD 40-50%, mid LAD 30%, proximal circumflex 60% and proximal RCA 50-60% stenosis 2. iFR LAD, circumflex, RCA normal 3. Normal left sided filling pressures PLAN: 1. Aggressive risk factor modification per most recent ACC/AHA guidelines. 2. Continue with medical therapy given normal iFR 3. Follow-up in the office in 1-2 weeks.
--- NOTE | 2022-07-01 14:38 | P.PN ---
Subjective Progress Note Date: 07/01/22 This is a pleasant 56 years old male with past medical history of Atrial Fibrillation, Cancer, CVA/TIA, Diabetes Mellitus, GERD/Reflux, Hyperlipidemia, Hypertension, Memory Impairment, Osteoarthritis (OA), Sleep Apnea/CPAP/BIPAP,: PROSTATE CANCER, CHRONIC BACK PAIN WITH NERVE DAMAGE LEFT FOOT, STATES HX OF 1 EPISODE OF A-FIB- no meds for it, STATES HIGH BLOODPRESSURE-lisinopril new as of 06/27/22, CONSTIPATION. 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 no cpap machine., ADD/ADHD, Anxiety, Depression Patient presents because of abdominal pain and uncontrolled high blood pressure. He was discharged from the psych unit yesterday for bipolar disorder. He was discharged on Norvasc 10 mg and metoprolol 25 mg daily. Lisinopril was not started. Patient presents because of abdominal pain which woke him up about 5:00 in the morning, he says that his pain was 10/10 in severity when he came in but currently is improved on to 4-5/10 in severity and by the time I saw him it was 0/10 Also he vomited a few times with yellow bowel. He denies diarrhea. He complains from increased frequency of urination but no dysuria He had chest pain but that was resolved now He denies dyspnea. No headache weakness numbness dizziness. No double vision, no blurred vision currently. No slurred speech. He denies smoking alcohol but he uses marijuana. He denies signs symptoms of depression and suicidal ideation, he denies delusion or hallucination Vitals are stable and patient is afebrile. Currently blood pressure is 127/68. Labs including CBC, BMP, liver enzymes are unremarkable. Creatinine 1.29 which is at baseline Urine analysis is negative for infection Viruses are negative including influenza, coronavirus and RSV Chest x-ray: No acute process but there is cardiomegaly CT of the abdomen and pelvis: Small hiatal hernia, duodenum is unremarkable. Distal colonic diverticulosis without diverticulitis. No bowel obstruction. Mild bilateral hydronephrosis with left perinephric and bilateral perirenal fat stranding. The gallbladder is surgically absent EKG: Normal sinus rhythm at [address]-T depression or changes. 06/30/2022 Patient lying in bed, no much of his chest pain although he states this comes and go, he merely complaining of from bilateral abdominal pain and discomfort which mostly related to his symptoms of hydronephrosis.. He has history of prostate cancer possibly with prostatectomy and he has penile device and x-ray. Today because of his abdominal pain and distention reordered KUB which was n egative for acute process, most likely he has fatty abdomen. Patient's kept on heparin drip for suspicions STEMI, CARDIOLOGY INPUT IS APPRECIATED, CT OF THE BRAIN IS NEGATIVE. AND AGREE WITH CARDIOLOGY TEAM COMPLIANCE WILL BE AN ISSUE WITH HIM. PATIENT MAY GO FOR CARDIAC CATH TOMORROW BLOOD PRESSURE IS BETTER CONTROLLED WITH NORVASC AND METOPROLOL 07/01. Patient seen and examined. Still has abdominal pain. Patient went for cardiac cath today. Was seen post cardiac cath, not in acute distress. REVIEW OF SYSTEMS: CONSTITUTIONAL: No fever, no malaise,. CARDIOVASCULAR: No chest pain, no palpitations, no syncope. PULMONARY: No shortness of breath, no cough, GASTROINTESTINAL: No diarrhea, no nausea, no vomiting, NEUROLOGICAL: No headaches, no weakness, PHYSICAL EXAMINATION: GENERAL: The patient is alert and oriented x3, not in any acute distress. Well developed, well nourished. HEENT: Pupils are round and equally reacting to light. EOMI. No scleral icterus. No conjunctival pallor. Normocephalic, atraumatic. No pharyngeal erythema. No thyromegaly. CARDIOVASCULAR: S1 and S2 present. No murmurs, rubs, or gallops. PULMONARY: Chest is clear to auscultation, no wheezing or crackles. ABDOMEN: Soft, nontender, nondistended, normoactive bowel sounds. No palpable organomegaly. MUSCULOSKELETAL: No joint swelling or deformity. EXTREMITIES: No cyanosis, clubbing, or pedal edema. NEUROLOGICAL: Gross neurological examination did not reveal any focal deficits. SKIN: No rashes. Assessment and plan Non-STEMI somewhat concerning for type I etiology with chest pain worse with exertion Abdominal pain secondary to bilateral mild hydronephrosis and left perinephric stranding Hypertensive urgency Diabetes mellitus Chronic kidney disease, stage II Hyperlipidemia Paroxysmal atrial fibrillation, not on anticoagulation History of prostate cancer History of sleep apnea Chronic back pain History of depression Chest pain worse with exertion or last few months concerning for underlying CAD Abdominal pain may be related to kidney process with perinephric fat stranding noted on CT Medical noncompliance Dyspnea on exertion, rule out cardiac source Family history of CAD Plan: Monitor CBC Monitor CMP Continue with heparin drip Start cefepime continue with amlodipine 5 mg and metoprolol 2-D echo pending Cardiology planning for cardiac cath, cardiac cath done today showed Mild to moderate CAD as described above including proximal LAD 40-50%, mid LAD 30%, proximal circumflex 60% and proximal RCA 50-60% stenosis. Cardiology recommended aggressive risk factor modification and continuation of medical therapy Objective - Vital Signs Vital signs: Vital Signs Temp 98.2 F 07/01/22 07:27 Pulse 67 07/01/22 07:27 Resp 19 07/01/22 07:27 BP 154/100 07/01/22 07:27 Pulse Ox 98 07/01/22 07:27 FiO2 97 06/30/22 15:16 Intake & Output 06/30/22 07/01/22 07/01/22 18:59 06:59 18:59 Intake Total 490.000 800.783 231.226 Balance 490.000 800.783 231.226 Intake: Intake, IV Titration 250.000 210.783 231.226 Amount Heparin Sod,Pork in 0.45% 250.000 210.783 231.226 NaCl 25,000 unit In 0.45 % NaCl 1 250ml.bag @ 18 UNITS/KG/HR 18.37 mls/hr IV .[id number] [facility] Rx#: [id number] Oral 240 590 Other: Voiding Method Toilet Toilet Urinal Urinal # Voids 1 2 - Labs CBC & Chem 7: 06/30/22 05:41 06/30/22 05:41 Labs: Abnormal Lab Results - Last 24 Hours (Table) 07/01/22 Range/Units 07:21 APTT 87.2 H (22.0-30.0) sec Microbiology - Last 24 Hours (Table) 06/29/22 11:06 Blood Culture - Preliminary Blood No Growth after 24 hours 06/29/22 11:06 Blood Culture - Preliminary Blood No Growth after 24 hours
[2022-07-01] MEDS: CEFEPIME 2 GM in SODIUM CHLORIDE 0.9% 100 ML IVPB SCH ×2 (16:38→23:36)
[2022-07-02] MEDS: HYDROcodone/APAP 5-325MG 1 EACH TAB PO PRN ×2 (02:56→08:52)
[2022-07-02] MEDS: DOCUSATE 100 MG CAP PO SCH (08:51)
[2022-07-02] MEDS: PANTOPRAZOLE 40 MG TABLET PO SCH (08:52)
[2022-07-02] MEDS: METOPROLOL TARTRATE 25 MG TAB PO SCH (08:52)
[2022-07-02] MEDS: CEFEPIME 2 GM in SODIUM CHLORIDE 0.9% 100 ML IVPB SCH (08:53)
[2022-07-02 08:55] LABS: HCT 38.2 % (39.6-50.0); MCH 28.6 pg (27.0-32.0); MCHC 31.4 g/dL (32.0-37.0); MCV 91.2 fL (80.0-97.0); Mean Platelet Volume 11.3 fL (9.5-12.2); NRBC Per 100 WBC 0 /100 WBCS (0.0-0.0); Platelet Count 249 X 10*3/uL (140-440); RBC 4.19 X 10*6/uL (4.40-5.60); WBC 7.54 X 10*3/uL (4.50-10.00)
[2022-07-02] MEDS ORDERED: amLODIPine 10 MG TAB PO SCH (09:00)
[2022-07-02] MEDS ORDERED: ATORVASTATIN 80 MG TAB PO SCH (09:00)
[2022-07-02 09:10] LABS: ALT 26 U/L (10-49); AST 23 U/L (14-35); African American GFR (CKD) 67.1 (60.0-200.0); Albumin 3.7 g/dL (3.8-4.9); Albumin/Globulin Ratio 1.48 (1.60-3.17); Alkaline Phosphatase 65 U/L (41-126); BUN/Creat Ratio 13.93 Ratio (12.00-20.00); Blood Urea Nitrogen 18.8 mg/dL (9.0-27.0); Calcium 7.9 mg/dL (8.7-10.3); Carbon Dioxide 25.1 mmol/L (20.0-27.5); Chloride 106 mmol/L (96-109); Globulin 2.5 g/dL (1.6-3.3); Glucose 119 mg/dL (70-110); Non-African American GFR(CKD) 57.9 (60.0-200.0); Potassium 3.9 mmol/L (3.5-5.5); Sodium 140 mmol/L (135-145); Total Bilirubin <0.15 mg/dL (0.30-1.20); Total Protein 6.1 g/dL (6.2-8.2)
--- NOTE | 2022-07-02 10:24 | P.PN ---
Subjective Progress Note Date: 07/02/22 HISTORY OF PRESENTING ILLNESS Patient is a pleasant 56-year-old male with a history of atrial fibrillation, prostate cancer with questionable mets to brain, stroke, diabetes mellitus type 2, GERD, hypertension, hyperlipidemia, sleep apnea, ADHD, anxiety, depression, noncompliance. Cardiology's consultation for hypertension, chest pain. Patient presented secondary abdominal pain as well as some vomiting however no constipation or diarrhea. He denies any chest pain or pressure. He had CT abdomen and pelvis which showed small hiatal hernia, diverticulosis without diverticulitis and mild hydronephrosis with perirenal fat stranding. Blood work shows creatinine 1.2, troponin 0.04, 0.026, white blood cell 9.9. He has been having intermittent episodes of chest pain usually worse when he does activities or last few months. He has not followed with a doctor and only recently obtained his insurance card and therefore has not followed up regarding apparent recurrence of prostate cancer with metastasis to the brain and has not been on any medications. He recently went to [facility] a week ago secondary to uncontrolled hypertension and apparently was given prescription for lisinopril which she was taking however only improvements to the low 200s. He is concerned as he has family history of father dying from an [place]. 07/02 Patient is seen today in follow-up. Yesterday he underwent a cardiac catheterization with Dr. Barnett which revealed [id number] coronary artery disease, proximal LAD 40-50%, mid LAD 30%, proximal circumflex 60% and proximal RCA 50-60% stenosis. iFR LAD, circumflex, RCA normal. Normal left- sided filling pressures. Plan was for aggressive risk factor modification and follow up in the office in one to 2 weeks. Yesterday afternoon, patient's blood pressure was quite elevated. Will increase amlodipine to 10 mg daily today. Patient apparently is waiting for urine culture and is on IV antibiotics. He denies having any chest pain, he does state he has chronic shortness of breath especially with activity. Echocardiogram reveals EF of 45-50%, moderate to severely increased left ventricular wall thickness, mild right ventricular dilation, moderately dilated left atrium, moderate mitral regurgitation, mild tricuspid regurgitation, RVSP 18. PHYSICAL EXAMINATION Vital signs reviewed. CONSTITUTIONAL: No apparent distress, chronically ill appearing. HEENT: Head is normocephalic. Pupils are equal, round. Sclerae anicteric. Mucous membranes of the mouth are moist. No JVD. No carotid bruit. CHEST EXAMINATION: Lungs scattered expiratory wheeze. No chest wall tenderness is noted on palpation or with deep breathing. HEART EXAMINATION: Regular rate and rhythm. S1, S2 heard. No murmurs, gallops or rub. ABDOMEN: Soft, nontender. Positive bowel sounds. EXTREMITIES: 2+ peripheral pulses, no lower extremity edema and no calf tenderness. NEUROLOGIC EXAMINATION: Patient is awake, alert and oriented x3. ASSESSMENT Hypertensive urgency Non-STEMI ruled out by cardiac catheterization, elevated troponins most likely secondary to hypertension Chest pain worse with exertion or last few months concerning for underlying CAD Abdominal pain may be related to kidney process with perinephric fat stranding noted on CT Medical noncompliance History of paroxysmal atrial fibrillation not taking any anticoagulation History of prostate cancer with apparent recurrence and questionable metastasis to the brain not identified on CAT scan Dyspnea on exertion Family history of CAD PLAN Continue patient's current cardiac medications and increase amlodipine to 10 mg daily Patient is cleared for discharge and may follow-up in admission liaison office in one to 2 weeks Nurse practitioner note has been reviewed, I agree with the documented findings and plan of care. Patient was seen and examined. Objective - Vital Signs Vital signs: Vital Signs Temp 97.5 F L 07/02/22 07:52 Pulse 64 07/02/22 07:52 Resp 18 07/02/22 07:52 BP 161/98 07/02/22 07:52 Pulse Ox 98 07/02/22 07:56 FiO2 97 06/30/22 15:16 Intake & Output 07/01/22 07/02/22 07/02/22 18:59 06:59 18:59 Intake Total 961.226 Balance 961.226 Intake: IV 250 Intake, IV Titration 231.226 Amount Heparin Sod,Pork in 0.45% 231.226 NaCl 25,000 unit In 0.45 % NaCl 1 250ml.bag @ 18 UNITS/KG/HR 18.37 mls/hr IV .[id number] [facility] Rx#: [id number] Oral 480 Other: Voiding Method Toilet Urinal # Voids 1 0 1 - Labs CBC & Chem 7: 07/02/22 03:08 07/02/22 03:08 Labs: Abnormal Lab Results - Last 24 Hours (Table) 04/16/23 Range/Units 07:21 APTT 87.2 H (22.0-30.0) sec Microbiology - Last 24 Hours (Table) 07/01/22 00:35 Urine Culture - Preliminary Urine,Voided 06/29/22 11:06 Blood Culture - Preliminary Blood No Growth after 48 hours 06/29/22 11:06 Blood Culture - Preliminary Blood No Growth after 48 hours
--- NOTE | 2022-07-02 14:44 | P.DS ---
Providers Date of admission: 06/29/22 15:12 Expected date of discharge: 07/02/22 Attending physician: Luis Enrique Iglesias MD Consults: 06/29/22 21:49 Consult Physician Routine Consulting Provider: Thanh Araiza Consult Reason/Comments: uncontrolled htn and transient cp Do you want consulting provider notified?: Yes, Notify in am 06/30/22 03:16 Consult Physician Routine Consulting Provider: Pawan Starr Consult Reason/Comments: mild hydronephrosis Do you want consulting provider notified?: Yes, Notify in am Primary care physician: Jacky Persaud MD Hospital Course: Discharge diagnoses; Non-STEMI somewhat concerning for type I etiology with chest pain worse with exertion Acute pyelonephritis Abdominal pain secondary to bilateral mild hydronephrosis and left perinephric stranding Hypertensive urgency Diabetes mellitus Chronic kidney disease, stage II Hyperlipidemia Paroxysmal atrial fibrillation, not on anticoagulation History of prostate cancer History of sleep apnea Chronic back pain History of depression Chest pain worse with exertion or last few months concerning for underlying CAD Abdominal pain may be related to kidney process with perinephric fat stranding noted on CT Medical noncompliance Dyspnea on exertion, rule out cardiac source Family history of CAD Hospital course; This is a pleasant 56 years old male with past medical history of Atrial Fibrillation, Cancer, CVA/TIA, Diabetes Mellitus, GERD/Reflux, Hyperlipidemia, Hypertension, Memory Impairment, Osteoarthritis (OA), Sleep Apnea/CPAP/BIPAP,: PROSTATE CANCER, CHRONIC BACK PAIN WITH NERVE DAMAGE LEFT FOOT, STATES HX OF 1 EPISODE OF A-FIB- no meds for it, STATES HIGH BLOODPRESSURE-lisinopril new as of 06/27/22, CONSTIPATION. 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 no cpap machine., ADD/ADHD, Anxiety, Depression Patient presents because of abdominal pain and uncontrolled high blood pressure. He was discharged from the psych unit yesterday for bipolar disorder. He was discharged on Norvasc 10 mg and metoprolol 25 mg daily. Lisinopril was not started. Patient presents because of abdominal pain which woke him up about 5:00 in the morning, he says that his pain was 10/10 in severity when he came in but currently is improved on to 4-5/10 in severity and by the time I saw him it was 0/10 Also he vomited a few times with yellow bowel. He denies diarrhea. He complains from increased frequency of urination but no dysuria He had chest pain but that was resolved now He denies dyspnea. No headache weakness numbness dizziness. No double vision, no blurred vision currently. No slurred speech. He denies smoking alcohol but he uses marijuana. He denies signs symptoms of depression and suicidal ideation, he denies delusion or hallucination Vitals are stable and patient is afebrile. Currently blood pressure is 127/68. Labs including CBC, BMP, liver enzymes are unremarkable. Creatinine 1.29 which is at baseline Urine analysis is negative for infection Viruses are negative including influenza, coronavirus and RSV Chest x-ray: No acute process but there is cardiomegaly CT of the abdomen and pelvis: Small hiatal hernia, duodenum is unremarkable. Distal colonic diverticulosis without diverticulitis. No bowel obstruction. Mild bilateral hydronephrosis with left perinephric and bilateral perirenal fat stranding. The gallbladder is surgically absent EKG: Normal sinus rhythm at [address]-T depression or changes. 06/30/2022 Patient lying in bed, no much of his chest pain although he states this comes and go, he merely complaining of from bilateral abdominal pain and discomfort which mostly related to his symptoms of hydronephrosis.. He has history of prostate cancer possibly with prostatectomy and he has penile device and x-ray. Today because of his abdominal pain and distention reordered KUB which was negative for acute process, most likely he has fatty abdomen. Patient's kept on heparin drip for suspicions STEMI, CARDIOLOGY INPUT IS APPRECIATED, CT OF THE BRAIN IS NEGATIVE. AND AGREE WITH CARDIOLOGY TEAM COMPLIANCE WILL BE AN ISSUE WITH HIM. PATIENT MAY GO FOR CARDIAC CATH TOMORROW BLOOD PRESSURE IS BETTER CONTROLLED WITH NORVASC AND METOPROLOL 07/01. Patient seen and examined. Still has abdominal pain. Patient went for cardiac cath today. Was seen post cardiac cath, not in acute distress. Cardiac cath Showed Mild to moderate CAD as described above including proximal LAD 40- 50%, mid LAD 30%, proximal circumflex 60% and proximal RCA 50-60% stenosis 07/02. Cardiology cleared the patient for discharge, recommended medical management. Being discharged on oral Ceftin for 7 days for possible pyelonephritis PHYSICAL EXAMINATION: GENERAL: The patient is alert and oriented x3, not in any acute distress. Well developed, well nourished. HEENT: Pupils are round and equally reacting to light. EOMI. No scleral icterus. No conjunctival pallor. Normocephalic, atraumatic. No pharyngeal erythema. No thyromegaly. CARDIOVASCULAR: S1 and S2 present. No murmurs, rubs, or gallops. PULMONARY: Chest is clear to auscultation, no wheezing or crackles. ABDOMEN: Soft, nontender, nondistended, normoactive bowel sounds. No palpable organomegaly. MUSCULOSKELETAL: No joint swelling or deformity. EXTREMITIES: No cyanosis, clubbing, or pedal edema. NEUROLOGICAL: Gross neurological examination did not reveal any focal deficits. SKIN: No rashes. Patient Condition at Discharge: Good Plan - Discharge Summary Discharge Rx Participant: Yes New Discharge Prescriptions: New Nitroglycerin Sl Tabs [Nitrostat] 0.4 mg SUBLINGUAL Q5M PRN #30 tab PRN Reason: Chest Pain amLODIPine [Norvasc] 10 mg PO DAILY #30 tab cefUROXime axetiL [Cefuroxime] 500 mg PO BID #14 tab Atorvastatin [Lipitor] 80 mg PO DAILY #30 tab Metoprolol Tartrate [Lopressor] 25 mg PO BID #60 tab Discontinued lisinopriL [Zestril] 20 mg PO HS Discharge Medication List Atorvastatin [Lipitor] 80 mg PO DAILY #30 tab 07/02/22 [Rx] Metoprolol Tartrate [Lopressor] 25 mg PO BID #60 tab 07/02/22 [Rx] Nitroglycerin Sl Tabs [Nitrostat] 0.4 mg SUBLINGUAL Q5M PRN #30 tab 07/02/22 [Rx] amLODIPine [Norvasc] 10 mg PO DAILY #30 tab 07/02/22 [Rx] cefUROXime axetiL [Cefuroxime] 500 mg PO BID #14 tab 07/02/22 [Rx] Follow up Appointment(s)/Referral(s): Eliazar Barnett DO [STAFF PHYSICIAN] - 1 Week Jacky Persaud MD [Primary Care Provider] - 1-2 days Discharge Disposition: HOME SELF-CARE
[2022-07-02 14:51] VITALS: BP 157/98; PULSE 73; RESP 19; TEMP 98.5
[2022-07-02] MEDS ORDERED: CEFEPIME 2 GM in SODIUM CHLORIDE 0.9% 100 ML IVPB SCH (21:00)
--- NOTE | 2022-07-04 16:43 | CDI ---
Documentation Clarification Form Date: 07/04/2022 4:25:56 PM From: Nini Esposito Phone: Admit Date: 06/29/2022 3:12:00 PM Patient Name: Tony Lma Visit Number: [id number] Discharge Date: 07/02/2022 3:54:00 PM ATTENTION: The Clinical Documentation Specialists (CDI) and [facility] Coding Staff appreciate your assistance in clarifying documentation. Please respond to the clarification below the line at the bottom and electronically sign. The CDI & [facility] Coding staff will review the response and follow-up if needed. Please note: Queries are made part of the Legal Health Record. If you have any questions, please contact the author of this message via ITS. Dr. Jerald Gracia Conflicting documentation has been found in the medical record. As attending physician, please provide clarification. NSTEMI somewhat concerning for type I is documented in the DC Summary Per Cardiology: Non-STEMI ruled out by cardiac catheterization, elevated troponins most likely d/t to HTN. History/Risk Factors: 56yo M, acute pyelonephritis, HTN w urgency, DMII, CKD IV, HLD, PAF, Hx Prostate Cx, RAFAL, CBP, depression, CAD, medical noncompliance Clinical Indicators: Chest painwithabnormaltroponins worse with exertion concerning for cardiac source. Discussed risks and benefits ofheart catheterizationpatient is agreeable. Heart catheterization07/01/2022. Continue with heparin drip for now. Unclear ifpatient will be good candidate for intervention,stentingwith possibleneed forbiopsyin the future. ObtainCT brainfor completeness sake given concern of thetestisis so the brain to evaluate if patient would be good candidate forpossiblestenting. Bloodpressurelabile and appears improved with metoprolol and Norvasc. Check 2-D echo. Further recommendations to follow. Treatment: LHC, bilateralcoronary angiography, iFR LAD, circumflex, RCA Please clarify which diagnosis is most appropriate: [ ] NSTEMI [ x ] Non-STEMI ruled out [ ] Other (please specify) [ ] Unable to determine (Template Last Revised: May 2020) MTDD
== END 2022-07-02 15:54 | disposition home or self-care (01) | DRG 287 ==
LOC: EC 10:17 → 5NMEDONC 15:12 → 6NMEDSUR 07-01 11:57
PROVIDERS: ADMIT Internal Medicine; ATTEND Internal Medicine
PROC: B2111ZZ Fluoroscopy of Multiple Coronary Arteries using Low Osmolar Contrast (ICD-10-PCS; 2022-07-01)
PROC: 4A033BC Measurement of Arterial Pressure, Coronary, Percutaneous Approach (ICD-10-PCS; 2022-07-01)
PROC: 4A023N7 Measurement of Cardiac Sampling and Pressure, Left Heart, Percutaneous Approach (ICD-10-PCS; principal; 2022-07-01 10:15)
DX: I16.0 Hypertensive urgency (principal); C79.31 Secondary malignant neoplasm of brain; N10 Acute pyelonephritis; Z16.24 Resistance to multiple antibiotics; I48.0 Paroxysmal atrial fibrillation; E11.22 Type 2 diabetes mellitus with diabetic chronic kidney disease; I13.10 Hypertensive heart and chronic kidney disease without heart failure, with stage 1 through stage 4 chronic kidney disease, or unspecified chronic kidney disease; F31.9 Bipolar disorder, unspecified; E78.5 Hyperlipidemia, unspecified; B96.4 Proteus (mirabilis) (morganii) as the cause of diseases classified elsewhere; I08.1 Rheumatic disorders of both mitral and tricuspid valves; N43.3 Hydrocele, unspecified; G89.29 Other chronic pain; R41.3 Other amnesia; N18.2 Chronic kidney disease, stage 2 (mild); N20.0 Calculus of kidney; R77.8 Other specified abnormalities of plasma proteins; G47.30 Sleep apnea, unspecified; I25.10 Atherosclerotic heart disease of native coronary artery without angina pectoris; K44.9 Diaphragmatic hernia without obstruction or gangrene; K57.90 Diverticulosis of intestine, part unspecified, without perforation or abscess without bleeding; K21.9 Gastro-esophageal reflux disease without esophagitis; F90.9 Attention-deficit hyperactivity disorder, unspecified type; F41.9 Anxiety disorder, unspecified; M54.9 Dorsalgia, unspecified; Z96.0 Presence of urogenital implants; Z20.822 Contact with and (suspected) exposure to COVID-19; Z28.310 Unvaccinated for COVID-19; Z90.79 Acquired absence of other genital organ(s); Z85.46 Personal history of malignant neoplasm of prostate; Z82.49 Family history of ischemic heart disease and other diseases of the circulatory system; Z86.73 Personal history of transient ischemic attack (TIA), and cerebral infarction without residual deficits; Z91.199 Patient's noncompliance with other medical treatment and regimen due to unspecified reason; Z87.891 Personal history of nicotine dependence; Z88.2 Allergy status to sulfonamides; Z87.442 Personal history of urinary calculi
CPT/HCPCS: 36415; 70450; 71046; 74018; 74176; 80048; 80053; 81001; 83605; 84153; 84484; 85025; 85027; 85610; 85730; 87040; 87077; 87086; 87186; 87636; 93005; 93306; 93458; 94760; 96361; 96374; 96375; 96376; 99285

== ENCOUNTER 2022-10-04 22:57 | Emergency (ER) | payer MEDICARE ==
[2022-10-04 23:12] VITALS: TEMP 98
[2022-10-05 00:44] VITALS: RESP 17
[2022-10-05] MEDS ORDERED: ONDANSETRON 4 MG/2 ML VIAL IVP STA (00:44)
[2022-10-05] MEDS ORDERED: KETOROLAC 15 MG/ML 1 ML VIAL IVP STA (00:44)
[2022-10-05] MEDS ORDERED: diphenhydrAMINE 50 MG/ML 1 ML VIAL IVP STA (00:44)
[2022-10-05] MEDS ORDERED: SODIUM CHLORIDE 0.9% 1,000 ML IV STA (00:44)
--- NOTE | 2022-10-05 00:47 | ED ---
General Adult HPI - General Chief complaint: Recheck/Abnormal Lab/Rx Stated complaint: Hypertension Time Seen by Provider: 10/05/22 00:36 Source: EMS Mode of arrival: EMS Limitations: no limitations - History of Present Illness Initial comments: Dictation was produced using [employer] dictation software. please excuse any grammatical, word or spelling errors. Chief Complaint: 56-year-old male presents emergency department for elevated blood pressure History of Present Illness: Is 56-year-old male he is currently a patient at [facility]. 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 Patient has history of hypertension and takes blood pressure medications. Patient brought his blood pressure cuff to the detox facility. Found that his blood pressure was high he went to go see nursing staff there ultimately ended up being brought to the emergency department for evaluation. Patient has a numbness and paresthesias to the arms or legs. No chest pain or shortness of breath. He does have a slight migraine. He has history of migraines. States that headache not severe or thunderclap. Reports that his headache feels typical of headaches analgesics rates in the past. The ROS documented in this emergency department record has been reviewed and confirmed by me. Those systems with pertinent positive or negative responses have been documented in the HPI. All other systems are other negative and/or noncontributory. - Related Data Previous Rx's Medication Instructions Recorded Atorvastatin [Lipitor] 80 mg PO DAILY #30 tab 07/02/22 Metoprolol Tartrate [Lopressor] 25 mg PO BID #60 tab 07/02/22 Nitroglycerin Sl Tabs [Nitrostat] 0.4 mg SUBLINGUAL Q5M PRN #30 tab 07/02/22 amLODIPine [Norvasc] 10 mg PO DAILY #30 tab 07/02/22 cefUROXime axetiL [Cefuroxime] 500 mg PO BID #14 tab 07/02/22 Allergies Allergy/AdvReac Type Severity Reaction Status Date / Time Sulfa (Sulfonamide Allergy Unknown Anaphylaxis Verified 10/04/22 23:12 Antibiotics) Review of Systems ROS Statement: Those systems with pertinent positive or pertinent negative responses have been documented in the HPI. ROS Other: All systems not noted in ROS Statement are negative. Past Medical History Past Medical History: Atrial Fibrillation, Cancer, CVA/TIA, Diabetes Mellitus, GERD/Reflux, Hyperlipidemia, Hypertension, Memory Impairment, Musculoskeletal Disorder, Osteoarthritis (OA), Pneumonia, Sleep Apnea/CPAP/BIPAP Additional Past Medical History / Comment(s): PROSTATE CANCER, DIABETES-DIET CONTROLLED, CHRONIC BACK PAIN WITH NERVE DAMAGE LEFT FOOT, STATES HX OF 1 EPISODE OF A-FIB- no meds for it, STATES HIGH BLOODPRESSURE-lisinopril new as of 06/27/22, CONSTIPATION. 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 no cpap machine. History of Any Multi-Drug Resistant Organisms: None Reported Past Surgical History: Appendectomy, Back Surgery, Cholecystectomy, Heart Catheterization, Tonsillectomy Additional Past Surgical History / Comment(s): BACK SURGERY x2, prostate biopsy . 06-16-14 PROSTATECTOMY Past Anesthesia/Blood Transfusion Reactions: No Reported Reaction, Previous Problems w/ Anesthesia Additional Past Anesthesia/Blood Transfusion Reaction / Comment(s): STATES DIFFICULT INTUBATION. Past Psychological History: ADD/ADHD, Anxiety, Depression Smoking Status: Never smoker Past Alcohol Use History: None Reported Past Drug Use History: Cocaine, Marijuana - Past Family History Mother Family Medical History: No Reported History Additional Family Medical History / Comment(s): patient states he was adopted- does not know her history. Father Family Medical History: Myocardial Infarction ([place]) Additional Family Medical History / Comment(s): patient states he was adopted but knows his biological father from "lots of heart problems" Brother(s) Family Medical History: No Reported History Sister(s) Family Medical History: No Reported History Daughter(s) Family Medical History: No Reported History General Exam - General Exam Comments Initial Comments: PHYSICAL EXAM: General Impression: Alert and oriented x3, not in acute distress HEENT: Normocephalic atraumatic, extra-ocular movements intact, pupils equal and reactive to light bilaterally, mucous membranes moist. Cardiovascular: Heart regular rate and rhythm Chest: Able to complete full sentences, no retractions, no tachypnea Abdomen: abdomen soft, non-tender, non-distended, no organomegaly Musculoskeletal: Pulses present and equal in all extremities, no peripheral edema Motor: no focal deficits noted Neurological: CN II-XII grossly intact, no focal motor or sensory deficits noted Skin: Intact with no visualized rashes Psych: Normal affect and mood Limitations: no limitations Course Vital Signs 0710/05/22 10/05/22 23:10 00:40 02:05 Temperature 98 F Pulse Rate 63 62 58 L Respiratory 18 17 Rate Blood Pressure 168/95 171/113 164/92 O2 Sat by Pulse 97 97 97 Oximetry Medical Decision Making - Medical Decision Making Was pt. sent in by a medical professional or institution (, [facility], CARDIOVASCULAR RN, urgent care, hospital, or correction...) When possible be specific @ -detox facility Did you speak to anyone other than the patient for history (EMS, parent, family, police, friend...)? What history was obtained from this source @ -No Did you review nursing and triage notes (agree or disagree)? Why? @ -I reviewed and agree with nursing and triage notes Were old charts reviewed (outside hosp., previous admission, EMS record, old EKG, old radiological studies, urgent care reports/EKG's, correction records)? Report findings @ -No old charts were reviewed Differential Diagnosis (chest pain, altered mental status, abdominal pain women, abdominal pain men, vaginal bleeding, musculoskeletal, weakness, fever, dyspnea, syncope, headache, dizziness, GI bleed, back pain, seizure, CVA, palpatations, mental health)? @ -Differential Headache: Migraine, tension, cluster, carbon monoxide, central venous thrombosis, pension karma temporal arteritis, acute closure glaucoma, intercranial hemorrhage, mastoiditis, sinusitis, head injury, this is not meant to be an all-inclusive list. EKG interpreted by me (3pts min.). @ -None done X-rays interpreted by me (1pt min.). @ -None done CT interpreted by me (1pt min.). @ -None done U/S interpreted by me (1pt. min.). @ -None done What testing was considered but not performed or refused? (CT, X-rays, U/S, labs)? Why? @ -None What meds were considered but not given or refused? Why? @ -None Did you discuss the management of the patient with other professionals (professionals i.e. [facility], CARDIOVASCULAR RN, lab, RT, psych nurse, social media marketer, rn child, teacher, fundraising officer, correctional counselor/case manager)? Give summary @ -No Was smoking cessation discussed for >3mins.? @ -No Was critical care preformed (if so, how long)? @ -No Were there social determinants of health that impacted care today? How? (Homelessness, low income, unemployed, alcoholism, drug addiction, transportation, low edu. Level, literacy, decrease access to med. care, [facility], rehab)? @ -No Was there de-escalation of care discussed even if they declined (Discuss DNR or withdrawal of care, Hospice)? DNR status @ -No What co-morbidities impacted this encounter? (DM, HTN, Smoking, COPD, CAD, Cancer, CVA, ARF, Chemo, Hep., AIDS, mental health diagnosis, sleep apnea, morbid obesity)? @ -None Was patient admitted / discharged? Hospital course, mention meds given and route, prescriptions, significant lab abnormalities, going to OR and other pertinent info. @ -56-year-old male presents emergency Department with hypertension. Vital signs upon arrival shows blood pressure of 168/95. Repeat blood pressures 171/113. Patient takes blood pressure medications. States that his normal blood pressures around 150 systolic. Patient has no signs or symptoms of hypertensive emergency. Patient given headache cocktail observed in emergency department discharge back to detox facility Undiagnosed new problem with uncertain prognosis? @ -No Drug Therapy requiring intensive monitoring for toxicity (Heparin, Nitro, Insulin, Cardizem)? @ -No Were any procedures done? @ -No Diagnosis/symptom? Acute, or Chronic, or Acute on Chronic? Uncomplicated (without systemic symptoms) or Complicated (systemic symptoms)? @ -Hypertension Side effects of treatment? @ -No Exacerbation, Progression, or Severe Exacerbation? @ -No Poses a threat to life or bodily function? How? (Chest pain, [place], [place], pneumonia, PE, COPD, DKA, ARF, appy, cholecystitis, CVA, Diverticulitis, Homicidal, Suicidal, threat to staff... and all critical care pts) @ -No Disposition Clinical Impression: Hypertension Disposition: HOME SELF-CARE Condition: Good Instructions (If sedation given, give patient instructions): Hypertension (ED) Is patient prescribed a controlled substance at d/c from ED?: No Referrals: Jacky Persaud MD [REFERRING] - 1-2 days Time of Disposition: 02:50
[2022-10-05 02:06] VITALS: BP 164/92; PULSE 58
== END 2022-10-05 03:11 | disposition home or self-care (01) ==
LOC: EC 22:57
DX: I10 Essential (primary) hypertension (principal); I48.91 Unspecified atrial fibrillation; E11.9 Type 2 diabetes mellitus without complications; G47.30 Sleep apnea, unspecified; F14.90 Cocaine use, unspecified, uncomplicated; F12.90 Cannabis use, unspecified, uncomplicated; Z86.59 Personal history of other mental and behavioral disorders; Z86.73 Personal history of transient ischemic attack (TIA), and cerebral infarction without residual deficits; Z88.2 Allergy status to sulfonamides; Z88.1 Allergy status to other antibiotic agents
CPT/HCPCS: 99284; 96374; 96375 ×2; 96361; J1200; J2405; J1885

== ENCOUNTER 2024-09-27 11:54 | Emergency (ER) | payer MEDICARE ==
[2024-09-27 12:05] VITALS: PULSE 76; RESP 18; TEMP 98.1
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
[2024-09-27] MEDS: DIPH,PERTUS(ACELL)TETVAC-LF 0.5 ML VIAL IM ONE (13:25)
[2024-09-27 13:49] VITALS: BP 107/57
== END 2024-09-27 13:46 | disposition home or self-care (01) ==
LOC: EC 11:54
DX: S90.416A Abrasion, unspecified lesser toe(s), initial encounter (principal); Z88.2 Allergy status to sulfonamides; Z23 Encounter for immunization; W16.622A Jumping or diving into natural body of water striking bottom causing other injury, initial encounter
CPT/HCPCS: 90471; 90715; 99284